=== PATIENT | female | born 1975 | race African-American/Black ===

== ENCOUNTER 2020-03-04 19:38 | Outpatient (REF) | payer OTHER, SELFPAY | END 2020-03-04 19:39 | disposition home or self-care (01) | LOC: HO.MRI 19:38 | PROVIDERS: Visit Provider Physician Assistant | DX: M23.8X1 Other internal derangements of right knee (principal) ==

== ENCOUNTER → 2020-03-26 11:05 | Outpatient (BNVA) | payer OTHER, SELFPAY | PROVIDERS: PCP Nurse Practitioner Family; Referring Provider Nurse Practitioner Family; Visit Provider Orthopaedic Surgery | DX: S83.231D Complex tear of medial meniscus, current injury, right knee, subsequent encounter (principal); M23.8X1 Other internal derangements of right knee | CPT/HCPCS: 99212 ==

== ENCOUNTER 2020-05-02 06:34 | Day surgery (SDC) | payer OTHER, SELFPAY ==
[2020-04-24 13:49] VITALS: BMI 44.6
--- NOTE | 2020-05-01 10:19 | P.CONAN_ITS ---
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 Allergies Allergy/AdvReac Type Severity Reaction Status Date / Time No Known Allergies Allergy Verified 05/02/20 06:47 Home Medications Medication Instructions Recorded Confirmed Type cholecalciferol (vitamin D3) 50 mcg PO DAILY 04/24/20 04/24/20 History [Vitamin D3] clonazepam [Klonopin] 0.5 mg PO BEDTIME 04/24/20 04/24/20 History ferrous sulfate 325 mg PO DAILY 04/24/20 04/24/20 History Exam Exam Date and Time: May 01, 2020 1019 Height,Weight and Vital Signs: Height 5 ft 4 in Weight 117.934 kg Assessment and Plan Assessment Anesthesia Assessment: Chart Reviewed Documented by User: Levi Gallagher MD 05/02/20 07:31 [facility] Past Medical History Medical History Anxiety Primary osteoarthritis of knees, bilateral Surgical History Surgical History History of repair of anterior cruciate ligament of left knee (~2009) Previous section Social History Social History Advance Directives Information Provided: No 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al status: employed 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[employer] 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 Allergies Allergy/AdvReac Type Severity Reaction Status Date / Time No Known Allergies Allergy Verified 05/02/20 06:47 Home Medications Medication Instructions Recorded Confirmed Type cholecalciferol (vitamin D3) 50 mcg PO DAILY 04/24/20 04/24/20 History [Vitamin D3] clonazepam [Klonopin] 0.5 mg PO BEDTIME 04/24/20 04/24/20 History ferrous sulfate 325 mg PO DAILY 04/24/20 04/24/20 History Exam Airway Mallampati Class: II TM Dist: >3cm Neck ROM: Full Partial: Upper Loose/Missing/Broken Teeth: Yes Heart: rrr Lungs: nl Other: ao Assessment and Plan Assessment Anesthesia Assessment: Anesthesia Plan Discussed and Chart Reviewed Final Anesthetic Review NPO: Yes ASA Class: III Final Preanesthetic Review: No Changes in Pt Med Stat, Meds/Allgs Chart Reviewed, Consent Obtained/Reviewed and Anes Risks/Benef Reviewed Patient Risk: Intermediate Procedure Risk: Low Anesthetic Plan Anesthetic Plan: GA Disposition: Standard PACU
--- NOTE | 2020-05-01 15:01 | MHC.SHP ---
Pre-Procedural Eval Section A The patient is an INPATIENT: No Changes since office visit: No Cold of Flu in the past 2 weeks, No New Medical Problems, No Changes in Medication and No Patient answered all questions The History & Physical has been completed within 30 days and I have reviewed it.: Yes Section B Chief Complaint: Tear of Medial Maniscus Allergies: Allergies Allergy/AdvReac Type Severity Reaction Status Date / Time No Known Allergies Allergy Unverified 02/15/20 18:35 Plan Patient has been examined and remains a candidate for the planned procedure
[2020-05-02] VITALS (11 sets, daily range): BP systolic 118–150; BP diastolic 57–99; PULSE 69–98; RESP 11–19; TEMP 36.3–36.8; O2SAT 96–99
[2020-05-02] MEDS: Lactated Ringers 1,000 ML 100 ML IVCONT (06:57)
--- NOTE | 2020-05-02 08:23 | PM.PRCOR ---
Brief Operative Note Date of procedure: 05/02/20 Pre-op diagnosis: acl deficient right knee with mm tear Post-op diagnosis: same (with OA right knee) Procedure: arthroscopic surgery right knee Anesthesia: GLMA Surgeon: Kirti Amezquita Estimated blood loss (mL): 10 Pathology: none sent Condition: stable Disposition: PACU
[2020-05-02] MEDS: Ketorolac Tromethamine 15 MG/ML VIAL IVPUSH (08:43)
[2020-05-02] MEDS: Acetaminophen 325 MG TABLET 650 MG PO (08:50)
[2020-05-02] MEDS: oxyCODONE HCl Immed Release 5 MG TABLET PO (08:51)
[2020-05-02] MEDS: HYDROmorphone HCl 0.5 MG/0.5 ML SYRINGE 0.25 MG IVPUSH ×2 (08:53→09:25)
--- NOTE | 2020-05-08 16:14 | OP_ITS ---
SURGEON: Kirti Amezquita MD PREOPERATIVE DIAGNOSIS: Medial meniscal tear of the right knee. POSTOPERATIVE DIAGNOSIS: PROCEDURE PERFORMED: ESTIMATED BLOOD LOSS: COMPLICATIONS: ANESTHESIA: ASSISTANTS: SPECIMENS: POSTOPERATIVE DIAGNOSES: 1. Medial meniscal tear, right knee. 2. ACL deficient, right knee. 3. Osteoarthritis, right knee. CLINICAL NOTE: This lady has had ongoing problem with pain and discomfort involving her knee. She had some instability episodes. She has known ACL injury previously, however, recent investigations confirmed that she had a meniscus tear as well as ongoing problems and she had failed non-operative management. After explaining the risks, benefits, and alternatives and answering all her questions, it was mutually agreed upon to carry out the following procedure. MOTION: Full range of motion. STABILITY: Grade 1 Leidy, grade 1 anterior drawer, equivocal pivot shift. Collateral ligaments intact. DESCRIPTION OF PROCEDURE: PREPARATION: GA, standard technique, tourniquet to 300 mmHg for 10 minutes. SURGICAL TIME-OUT: The patient was identified, procedure confirmed, site confirmed. Medical analogy and history were reviewed. Preoperative antibiotics were given. Standard DVT prophylaxis was in place. All other items were discussed and agreed upon. INCISION: Superolateral, inferolateral, inferomedial, and stab incisions. SYNOVIUM: Normal. SYNOVIAL FLUID: Clear. MEDIAL COMPARTMENT: There was complex degenerative tearing of the posterior horn of the meniscus, it was resected using a combination of handheld cutters and power shaver to stable meniscus. There was grade 2 and 3 injury of the medial femoral condyle, which was debrided. The tibial articular surface had grade 2 fraying. INTERCONDYLAR NOTCH: ACL was absent and only remnants remained. PCL was intact. LATERAL COMPARTMENT: Lateral meniscus, tibial and femoral articular surfaces, popliteus tendon all stable and intact. ANTERIOR COMPARTMENT: Medial and lateral gutters clear. Suprapatellar pouch clear. Patella had grade 3 injury of the medial and central portion of the patella, which was debrided. The femoral sulcus had some grade 2 to 3 injury as well, which was debrided. CLOSURE: 30 mL of fglz-vnt-kgmb of 0.75% Marcaine with epinephrine and normal saline was prepared, injected into the knee. Steri-Strips and sterile dressing then applied. RECOMMENDATIONS: 1. Restore motion strength. 2. Resume activity as tolerated. 3. Discharge today with prescription for analgesic, Tylenol No. 3, 20 tablets. 4. Follow up in the office in 10 days' time. MD JUMA Tate/FARIDEH / [phone]
== END 2020-05-02 10:50 | disposition home or self-care (01) ==
PROVIDERS: PCP Nurse Practitioner Family; Visit Provider Orthopaedic Surgery
PROC: (CPT 29870; principal; 2020-05-02 07:30)
DX: S83.231A Complex tear of medial meniscus, current injury, right knee, initial encounter (principal); M23.8X1 Other internal derangements of right knee; M17.0 Bilateral primary osteoarthritis of knee; W18.2XXA Fall in (into) shower or empty bathtub, initial encounter; Y93.E1 Activity, personal bathing and showering; Y92.002 Bathroom of unspecified non-institutional (private) residence as the place of occurrence of the external cause; Y99.8 Other external cause status; Z79.899 Other long term (current) drug therapy
CPT/HCPCS: 29881; J0171; J1170; J1885; J2405; J3010

== ENCOUNTER 2020-06-09 10:43 | Emergency (ER) | payer OTHER, SELFPAY ==
[2020-06-09 10:45] VITALS: BP 127/76; PULSE 99; RESP 16; TEMP 36.7; O2SAT 97; BMI 44.6
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
[2020-06-09 14:15] LABS: Glucose Urine UA NEG (NEG); Leukocyte Esterase Urine NEG (NEG); Nitrite Urine NEG (NEG); Specific Gravity - Urine 1.025 (1.005-1.025); Urine Blood NEG (NEG); Urine Ketones NEG (NEG); Urine Protein NEG (NEG-TRACE)
[2020-06-09 14:16] LABS: Appearance Urine CLEAR; Color Urine YELLOW
[2020-06-09 14:17] LABS: UPreg QC Valid YES; Urine Pregnancy NEGATIVE (NEGATIVE)
[2020-06-09] MEDS: cefTRIAXone sodium 500 MG, Lidocaine HCl 1 % MPF 1 ML IM (14:20)
[2020-06-09] MEDS: Penicillin G Benzathine 2,400,000 UNIT/4 ML SYRINGE 2400000 UNIT IM (14:22)
[2020-06-10 04:08] LABS: Syphilis Screen Nonreactive (Nonreactive)
[2020-06-12 09:02] LABS: C. trachomatis RNA TMA NOT DETECTED (NOT DETECTED); N. gonorrhoeae RNA TMA NOT DETECTED (NOT DETECTED)
== END 2020-06-09 14:27 | disposition home or self-care (01) ==
PROVIDERS: Physician Assistant Medical; Emergency Provider Emergency Medicine; PCP Nurse Practitioner Family
DX: Z20.2 Contact with and (suspected) exposure to infections with a predominantly sexual mode of transmission (principal); Z79.899 Other long term (current) drug therapy
CPT/HCPCS: 36415; 81003; 81025; 86780; 87491; 87591; 96372; 99283; 99284; J0561; J0696

== ENCOUNTER 2020-06-14 10:58 | Outpatient (REF) | payer OTHER, SELFPAY ==
--- NOTE | 2020-06-14 11:02 | XR_ITS ---
EXAMINATION: XR RIBS, RIGHT CLINICAL INFORMATION: Unspecified injury or pneumothorax. COMPARISON: None TECHNIQUE: 3 views of the right ribs were obtained. 1 view chest. FINDINGS: Chest: The lungs are well-expanded and clear of acute process. Heart size and pulmonary vascularity is normal. No gross bony abnormality seen. Multiple views of left ribs reveal no visible rib fracture or bony abnormality. The soft tissues are normal. XR/XR ribs RT min 3V w CXR1V IMPRESSION: Unremarkable chest exam. No visible left rib fractures seen.
== END 2020-06-14 10:59 | disposition home or self-care (01) ==
LOC: HO.HMGCX 10:58
PROVIDERS: Visit Provider Nurse Practitioner Family
DX: S29.9XXA Unspecified injury of thorax, initial encounter (principal); X58.XXXA Exposure to other specified factors, initial encounter; Y93.9 Activity, unspecified; Y92.9 Unspecified place or not applicable; Y99.8 Other external cause status; E78.2 Mixed hyperlipidemia; E03.9 Hypothyroidism, unspecified
CPT/HCPCS: 71101

== ENCOUNTER 2020-10-12 16:58 | Emergency (ER) | payer OTHER, SELFPAY ==
[2020-10-12 17:13] VITALS: BP 137/80; PULSE 86; RESP 18; TEMP 37.1; O2SAT 97; BMI 41.5
[2020-10-12 17:37] LABS: Appearance Urine CLEAR; Color Urine YELLOW; Glucose Urine UA NEG (NEG); Leukocyte Esterase Urine NEG (NEG); Nitrite Urine NEG (NEG); Urine Blood NEG (NEG); Urine Ketones NEG (NEG); Urine Protein NEG (NEG-TRACE)
[2020-10-12 17:54] LABS: UPreg QC Valid YES; Urine Pregnancy NEGATIVE (NEGATIVE)
--- NOTE | 2020-10-12 18:25 | ED_ITS ---
HPI - Female Genitourinary General Chief complaint: Urogenital-Female Stated complaint: uti Time Seen by Provider: 10/12/20 17:37 Source: patient Mode of arrival: ambulatory Limitations: no limitations History of Present Illness HPI Narrative: 44-year-old female with a past medical history of bacterial vaginosis infections and Trichomonas presenting to the ED with complaints of 3 weeks of urinary odor with a fishy smell with pelvic floor pressure abnormal white vaginal discharge with associated vaginal itching and feeling retaining of urine. Reports that she would also like to be tested for STDs and treated for gonorrhea chlamydia. Denies any other symptoms complaints or concerns at this time. MD elicited complaint: vaginal discharge and genital itching Onset (ago): week(s) (Three weeks worse today) Location of symptoms: external genitalia and vaginal Severity: moderate Quality of pain: aching Consistency: constant Vaginal discharge: white and vaginal odor Vaginal bleeding: none Exacerbating factors: urination Relieving factors: none Associated symptoms: denies other symptoms Treatment prior to arrival: none Sexual activity: Yes Patient : No Related Data Previous Rx's Medication Instructions Recorded acetaminophen 300 mg-codeine 30 mg 1 tab PO Q4-6H PRN 7 Days #20 tab 05/10/20 tablet doxycycline monohydrate 100 mg PO BID 10 Days #20 cap 06/09/20 cyclobenzaprine 10 mg tablet 10 mg PO TID PRN #12 tab 06/14/20 lidocaine 5 % topical patch 1 patch TOPICAL DAILY #15 ea 06/14/20 naproxen 500 mg tablet 500 mg PO BID PRN #60 tab 06/14/20 cholecalciferol (vitamin D3) 50 50 mcg PO DAILY 90 Days #90 cap 09/11/20 mcg (2,000 unit) capsule ferrous sulfate 325 mg (65 mg 325 mg PO DAILY 90 Days #90 tab 09/11/20 iron) tablet clonazepam 0.5 mg tablet 0.5 mg PO BEDTIME 30 Days #30 tab 10/11/20 doxycycline monohydrate 100 mg PO BID 10 Days #20 cap 10/12/20 fluconazole [Diflucan] 150 mg PO ONCE 1 Days #1 tab 10/12/20 metronidazole [Flagyl] 500 mg PO BID 7 Days #14 tab 10/12/20 Allergies Allergy/AdvReac Type Severity Reaction Status Date / Time No Known Allergies Allergy Verified 05/02/20 06:47 Review of Systems Review of Systems: Constitutional : No Fever, No Chills ENT/Mouth : No sore throat, No Rhinorrhea Eyes: No Eye Pain, No Redness Cardiovascular : No Chest Pain, No SOB Respiratory : No Cough, No Sputum, No Wheezing Gastrointestinal : No Nausea, No Vomiting, No Diarrhea, positive abdominal pain, Genitourinary : Positive pelvic pain/vaginal discharge, No irregular bleeding, No Dysuria, No Urinary Frequency, no hematuria Musculoskeletal : No Myalgias Skin : No rash Neuro : No Weakness, No Headache Psych : No Anxiety/Panic, No Depression Heme/Lymph: No bruising, No Lymphadenopathy Endocrine : No Polyuria, No Polydipsia Yes all other systems are reviewed and are negative [facility] Past Medical History Attestation statement: The following information was validated with the patient. 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 Blood pressure normal. Heart rate normal. Respiration rate normal. Temperature normal. Oxygen saturation normal. Appearance: Alert. Oriented X3. No acute distress. Head: Normal external exam. Normocephalic. Atraumatic. Eyes: PERRLA. EOMI. Conjunctiva and sclera normal. Eyelids normal. ENT: Pharynx normal. Uvula midline. Moist mucous membranes. Neck: Normal inspection. Neck supple. FROM. No adenopathy. Thyroid Normal. No meningeal signs. No neck mass noted. CVS: Normal heart rate and rhythm. Heart sound normal. No murmurs noted. Pulses normal throughout. Respiratory: No respiratory distress. Painless inspiration. Breath sounds normal. No wheezes/rales/rhonchi noted. Chest nontender. No accessory muscle usage noted or decreased air movement noted. Abdomen: Soft and nontender. Bowel sounds normal in all 4 quadrants. No distention noted. No organomegaly noted. No visible injury noted. : Supervised by TORREY Gonzalez, Normal external appearance of urethra. No lesions/lacerations or tenderness noted. Speculum exam normal appearance/palpation of vagina normal. Exam with valvular erythema, edema, excoriations and cottage cheeselike discharge although patient also has fishy odor therefore could be candidiasis vaginitis with bacterial vaginitis. Otherwise no vaginal erythema. No foreign bodies noted. No vaginal laceration/lesions or active bleeding noted. No tissue present in vagina. No vaginal mass noted. No vaginal swelling noted. No vaginal tenderness noted. Normal appearance of cervix. Normal palpation of cervix. Cervical os is closed. No abnormal cervical discharge noted. No cervical lesion/mass. No Bartholin cyst noted. No cervical motion tenderness noted. Negative chandelier sign. Normal bimanual exam. Uterine size normal. Bladder normal to palpation. Uterine consistency normal. Normal cervical palpation. Uterine mobility normal. Uterine shape normal. Normal adnexa. Normal rectovaginal exam. Back: No CVA tenderness. Full range of motion noted. Skin: Skin warm and dry. Normal skin color. Normal skin turgor. No rashes/lesions/lacerations noted. Extremities: No lower extremity edema. Extremities exhibit normal range of motion. Extremities nontender. Neuro: Oriented X 3. No motor deficit. No sensory deficit. Reflexes normal. Course Course Course Narrative: 44-year-old female presenting to the ED with vaginal itching/discharge and pelvic floor pain for the past 3 weeks worse today. She is requesting to be tested for STDs. Will treat for bacterial vaginosis/candidiasis vaginitis along with gonorrhea chlamydia. Patient will be given 500 mg of IM Rocephin and will also be given Diflucan Flagyl and doxy cycline as an outpatient prescription and instructions to return if any new or worsening symptoms and to follow up with primary care provider. Patient understands agrees with this plan. [facility] - Female Genitourinary Medical Records Attestation: I reviewed the patient's medical records. Lab Data Attestation: I reviewed the patient's lab results. Labs: Lab Results 10/12/20 10/12/20 Range/Units 17:24 17:24 Urine Color YELLOW Urine Appearance CLEAR Urine pH 8.0 (5.0-8.0) Ur Specific Novice 1.020 (1.005-1.025) Urine Protein NEG (NEG-TRACE) MG/DL Urine Glucose (UA) NEG (NEG) MG/DL Urine Ketones NEG (NEG) MG/DL Urine Blood NEG (NEG) Urine Nitrite NEG (NEG) Ur Leukocyte Esterase NEG (NEG) Urine Test NEGATIVE (NEGATIVE) Discharge Plan Discharge Clinical Impression: Bacterial vaginosis, Vaginitis Patient Disposition: Home, Self-Care Instructions: Bacterial Vaginosis (ED), Yeast Infection (ED) Additional Instructions: You have pending lab results if any are positive you will be contacted. Prescriptions: New metronidazole [Flagyl] 500 mg tablet 500 mg PO BID 7 Days Qty: 14 RF: 0 fluconazole [Diflucan] 150 mg tablet 150 mg PO ONCE 1 Days Qty: 1 RF: 0 doxycycline monohydrate 100 mg capsule 100 mg PO BID 10 Days Qty: 20 RF: 0 No Action acetaminophen-codeine 300-30 mg tablet 1 tab PO Q4-6H PRN (Reason: pain) 7 Days Qty: 20 RF: 0 cholecalciferol (vitamin D3) [Vitamin D3] 50 mcg (2,000 unit) capsule 50 mcg PO DAILY 90 Days Qty: 90 RF: 0 ferrous sulfate 325 mg (65 mg iron) tablet 325 mg PO DAILY 90 Days Qty: 90 RF: 0 clonazepam [Klonopin] 0.5 mg tablet 0.5 mg PO BEDTIME 30 Days Qty: 30 RF: 0 doxycycline monohydrate 100 mg capsule 100 mg PO BID 10 Days Qty: 20 RF: 0 cyclobenzaprine 10 mg tablet 10 mg PO TID PRN (Reason: muscle spasm) Qty: 12 RF: 0 naproxen 500 mg tablet 500 mg PO BID PRN (Reason: pain) Qty: 60 RF: 0 lidocaine 5 % adhesive patch,medicated 1 patch topical DAILY Qty: 15 RF: 0 Referrals: Albino Watts, TRACK INSPECTING SUPERVISOR-BC [Primary Care Provider] - 2 days Print Language: Macedonian
[2020-10-12] MEDS: Fluconazole 150 MG TABLET PO (18:51)
[2020-10-12] MEDS: cefTRIAXone sodium 500 MG, Lidocaine HCl 1 % MPF 1 ML IM (18:51)
[2020-10-13 03:49] LABS: CT PCR NOT DETECTED (Not Detect.); NG PCR NOT DETECTED (Not Detect.)
[2020-10-13 10:43] LABS: BV Int Neg Control Negative (Negative); BV Int Pos Control Positive (Positive)
== END 2020-10-12 19:00 | disposition home or self-care (01) ==
PROVIDERS: Physician Assistant Medical; Emergency Provider Emergency Medicine; PCP Nurse Practitioner Family
DX: N76.0 Acute vaginitis (principal); Z11.3 Encounter for screening for infections with a predominantly sexual mode of transmission
CPT/HCPCS: 36415; 81003; 81025; 87480; 87491; 87510; 87591; 87660; 96372; 99284; J0696

== ENCOUNTER 2021-04-17 12:22 | Outpatient (REF) | payer OTHER, SELFPAY ==
[2021-04-17 14:03] LABS: Appearance Urine CLEAR; Color Urine YELLOW; Glucose Urine UA NEG (NEG); Leukocyte Esterase Urine NEG (NEG); Nitrite Urine NEG (NEG); PH 6.5 (5.0-8.0); Specific Gravity - Urine 1.015 (1.005-1.025); UACC Culture Trigger NO; Urine Blood 3+ (NEG); Urine Ketones NEG (NEG); Urine Protein NEG (NEG-TRACE)
[2021-04-17 14:21] LABS: RBC Urine 50-75 /HPF (0); Squamous Epithelial Cell Urine 1+ /LPF; WBC Urine 0-2 /HPF (0-4)
[2021-04-17 14:32] LABS: Alanine Aminotransferase 10 U/L (0-31); Albumin Level 3.8 g/dL (3.5-5.0); Alkaline Phosphatase 87 U/L (39-117); Anion Gap 11 (12-20); Aspartate Amino Transferase 12 U/L (5-31); Bilirubin Total 0.5 mg/dL (0.0-1.0); Blood Urea Nitrogen 7 mg/dL (9-16); Calcium 8.9 mg/dL (8.4-10.2); Carbon Dioxide 24 mmol/L (22-29); Chloride 104 mmol/L (96-108); Cholesterol 194 mg/dL; Estimated Glomerular Filt Rate > 60; Glucose Fasting 101 mg/dL (60-99); HDL Cholesterol 51 mg/dL; LDL Cholesterol Calculated 127 mg/dl; Potassium 3.9 mmol/L (3.3-5.1); Sodium 135 mmol/L (135-145); Total Protein 6.3 g/dL (6.5-8.0); Triglycerides 81 mg/dL
[2021-04-17 14:35] LABS: TSH reflex Free T4 1.79 uIU/mL (0.32-4.0)
== END 2021-04-17 12:23 | disposition home or self-care (01) ==
LOC: HO.HMGCLDS 12:22
PROVIDERS: PCP Nurse Practitioner Family; Visit Provider Nurse Practitioner Family
DX: Z00.00 Encounter for general adult medical examination without abnormal findings (principal)
CPT/HCPCS: 36415; 80053; 80061; 81001; 81003; 84443

== ENCOUNTER 2021-06-12 09:21 | Outpatient (REF) | payer OTHER, SELFPAY ==
[2021-06-13 14:20] LABS: BV Int Neg Control Negative (Negative); BV Int Pos Control Positive (Positive)
[2021-06-13 14:39] LABS: CT PCR NOT DETECTED (Not Detect.); NG PCR DETECTED (Not Detect.)
[2021-06-19 01:06] LABS: HPV mRNA E6/E7 rflx Not Detected (Not Detected)
== END 2021-06-12 09:22 | disposition home or self-care (01) ==
LOC: HO.LAB 09:21
PROVIDERS: Visit Provider Advanced Practice Midwife
DX: Z01.411 Encounter for gynecological examination (general) (routine) with abnormal findings (principal); Z11.51 Encounter for screening for human papillomavirus (HPV); Z20.2 Contact with and (suspected) exposure to infections with a predominantly sexual mode of transmission; N89.8 Other specified noninflammatory disorders of vagina
CPT/HCPCS: 87480; 87491; 87510; 87591; 87624; 87660; 88142

== ENCOUNTER 2021-06-24 08:09 | Outpatient (REF) | payer OTHER, SELFPAY ==
--- NOTE | ~2021-06-24 | MM_ITS ---
EXAMINATION: MM SCREENING DIGITAL BREAST TOMOSYNTHESIS, BILATERAL CLINICAL INFORMATION: Screening. Asymptomatic. The lifetime risk of breast cancer based on the Tyrer-Cuzick Model is 8.4%. COMPARISON: Mammography: 11/19/2010 TECHNIQUE: Digital breast tomosynthesis is performed in both the craniocaudal and mediolateral oblique views along with computer-aided detection (CAD). Synthesized 2D images are generated from the tomosynthesis. FINDINGS: The breasts are almost entirely fatty (ACR BI-RADS breast composition Category a). There are some scattered lymph nodes seen bilaterally. Within the upper outer aspect of the right breast approximately 8 cm from the nipple there is a 9 x 6 mm lobular density without microcalcifications. This is in a location on the other study of a more circumscribed density. Recommend spot compression views in craniocaudal and mediolateral oblique projections. If there is persistence of abnormal-appearing density then ultrasound could be performed at that time. There is stable appearance of the left breast. MM/MM tomosynthesis screening BI IMPRESSION: Right breast density for further evaluation as described above. ASSESSMENT: BI-RADS 0: Incomplete - Need Additional Imaging Evaluation RECOMMENDATION: 1. Additional views of the right breast. 2. Targeted ultrasound if warranted after review of the additional views. 3. Radiology department staff will contact the patient for additional imaging.
[2021-06-24 11:08] LABS: HIV AB/AG Nonreactive (Nonreactive); HIV Num 1 0.06 S/CO (0.00-0.99); Hepatitis B Surface Antigen Negative (Negative); ~HepC Num1 0.12 S/CO (0.00-0.79); ~Hepatitis C Antibody Nonreactive (Nonreactive)
[2021-06-25 09:36] LABS: Syphilis Screen Nonreactive (Nonreactive)
== END 2021-06-24 08:10 | disposition home or self-care (01) ==
LOC: HO.MAMMO 08:09
PROVIDERS: Absent Provider Advanced Practice Midwife; PCP Nurse Practitioner Family; Visit Provider Nurse Practitioner Family
DX: Z01.411 Encounter for gynecological examination (general) (routine) with abnormal findings (principal); Z12.31 Encounter for screening mammogram for malignant neoplasm of breast; N89.8 Other specified noninflammatory disorders of vagina; Z20.2 Contact with and (suspected) exposure to infections with a predominantly sexual mode of transmission
CPT/HCPCS: 36415; 77063; 77067; 86780; 86803; 87340; 87389; 96372; J0696

== ENCOUNTER 2021-07-18 11:47 | Outpatient (REF) | payer OTHER, SELFPAY ==
[2021-07-18 12:41] LABS: Appearance Urine CLEAR; Color Urine YELLOW; Glucose Urine UA NEG (NEG); Leukocyte Esterase Urine NEG (NEG); Nitrite Urine NEG (NEG); PH 6.5 (5.0-8.0); Urine Blood NEG (NEG); Urine Ketones NEG (NEG); Urine Protein NEG (NEG-TRACE)
== END 2021-07-18 11:48 | disposition home or self-care (01) ==
LOC: HO.MAMMO 11:47
PROVIDERS: PCP Nurse Practitioner Family; Visit Provider Nurse Practitioner Family
DX: Z00.00 Encounter for general adult medical examination without abnormal findings (principal)
CPT/HCPCS: 81003

== ENCOUNTER 2021-08-28 13:14 | Outpatient (REF) | payer OTHER, SELFPAY ==
--- NOTE | ~2021-08-28 | MM_ITS ---
EXAMINATION: MM DIAGNOSTIC DIGITAL BREAST TOMOSYNTHESIS, RIGHT US DIAGNOSTIC ULTRASOUND BREAST, RIGHT CLINICAL INFORMATION: Recall from screening for nodular asymmetric density anterior upper outer quadrant right breast. No known family history breast cancer. TC score 8%. COMPARISON: Mammography: 06/24/2021; outside exam 11/19/2010 ([place]) TECHNIQUE: Digital breast tomosynthesis is performed. 2D images are generated from the tomosynthesis. The following views are obtained: Spot CC, spot MLO x2, spot ML. Ultrasound right breast is targeted to the upper outer quadrant using grayscale imaging and color Doppler without and with harmonics. FINDINGS: The breasts are almost entirely fatty (ACR BI-RADS breast composition Category a). The nodular asymmetric density has macrolobulated margins and overall size approximately 0.8 x 0.6 cm. No associated calcification. There is similar asymmetric density suggested on remote prior outside 2-D mammography right CC view. Suspect chronic finding, better appreciated with tomography. Ultrasound demonstrates oval area grouped microcysts 7:00 position 8 cm from nipple measuring 1.1 x 0.5 cm. This likely corresponds to the finding on mammography. There is no solid mass or architectural abnormality. Results are discussed with the patient at time of visit. Finding is probably benign, possibly chronic and better appreciated with tomography. Management plan is for short interval diagnostic right mammography in 6 months. MM/MM tomosynthesis added views R IMPRESSION: -Macrolobulated nodule anterior upper outer right breast, possibly chronic and better appreciated with tomography. -Benign-appearing grouped microcysts on targeted ultrasound near mammographic finding. ASSESSMENT: BI-RADS 3: Probably Benign RECOMMENDATION: Diagnostic right mammography in 6 months. This patient's information was entered into a reminder system with a target due date for their next mammogram.
== END 2021-08-28 13:15 | disposition home or self-care (01) ==
LOC: HO.MAMMO 13:14
PROVIDERS: PCP Nurse Practitioner Family; Visit Provider Nurse Practitioner Family
DX: R92.2 Inconclusive mammogram (principal)
CPT/HCPCS: 76642; 77061; 77065

== ENCOUNTER 2021-10-10 04:36 | Emergency (ER) | payer OTHER, SELFPAY ==
[2021-10-10 05:00] VITALS: BP 112/55; PULSE 108; RESP 16; TEMP 37.1; O2SAT 95; BMI 39.1
[2021-10-10 05:15] LABS: Appearance Urine CLEAR; Color Urine YELLOW; Glucose Urine UA NEG (NEG); Leukocyte Esterase Urine NEG (NEG); Nitrite Urine NEG (NEG); Urine Blood NEG (NEG); Urine Ketones 5 MG/DL (NEG); Urine Protein NEG (NEG-TRACE)
[2021-10-10 05:16] LABS: UPreg QC Valid YES; Urine Pregnancy NEGATIVE (NEGATIVE)
--- NOTE | 2021-10-10 06:16 | ED_ITS ---
HPI - Female Genitourinary General Chief complaint: Urogenital-Female Stated complaint: UTI? Vaginal Itching Time Seen by Provider: 10/10/21 06:11 Source: patient and family () Mode of arrival: ambulatory History of Present Illness HPI Narrative: 45-year-old female presents with complaints vaginal itching and discharge is concerned for possible sexually transmitted infection and expresses she has concerns that it may be from her . Otherwise, she denies any fever, chills, urinary pain/burning/frequency. Related Data Previous Rx's Medication Instructions Recorded cholecalciferol (vitamin D3) 50 50 mcg PO DAILY 90 Days #90 cap 06/09/21 mcg (2,000 unit) capsule (Vitamin D3) ferrous sulfate 325 mg (65 mg 325 mg PO DAILY 90 Days #90 tab 06/09/21 iron) tablet clotrimazole 1 % vaginal cream 1 appful VAGINAL BEDTIME #45 g 06/12/21 metronidazole 500 mg tablet 500 mg PO BID 7 Days #14 tab 06/17/21 clonazepam 0.5 mg tablet (Klonopin) 0.5 mg PO BEDTIME 30 Days #30 tab 07/08/21 doxycycline hyclate 100 mg tablet 100 mg PO BID 7 Days #14 tab 10/10/21 Allergies Allergy/AdvReac Type Severity Reaction Status Date / Time No Known Allergies Allergy Verified 10/10/21 05:03 Review of Systems Review of Systems: Pertinent positives and negatives as stated in HPI 10 point review of systems is otherwise negative. [facility] Past Medical History Source: nursing notes reviewed Medical History Anxiety Primary osteoarthritis of knees, bilateral Surgical History History of repair of anterior cruciate ligament of left knee (~2009) Previous section Tubal ligation status Family History Family History Other Mental health disorder Substance use disorder Social History Social History Housing: Apartment Patient Tobacco Use Status: Current everyday Tobacco user Cigarettes Per Day: 2 Advance Directives: No Advance Directives Information Provided: Yes 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al status: employed 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 GENERAL: Well developed, well nourished, in no acute distress. HEAD: Normocephalic/atraumatic LUNGS: Normal breath sounds. CARDIOVASCULAR: Regular rate and rhythm without noted murmurs ABDOMEN: Soft, non-tender, non-distended with bowel sounds. NEUROLOGIC: Alert and oriented x 4. Course Course Course Narrative: 45-year-old female with history and clinical presentation suggestive of possible sexually transmitted infection and she was empirically treated here in the emergency room and discharged on remaining course of doxycycline. [facility] - Female Genitourinary Lab Data Labs: Lab Results 10/10/21 10/10/21 10/10/21 Range/Units 05:07 05:07 05:07 Urine Color YELLOW Urine Appearance CLEAR Urine pH 6.0 (5.0-8.0) Ur Specific [place] 1.020 (1.005-1.025) Urine Protein NEG (NEG-TRACE) MG/DL Urine Glucose (UA) NEG (NEG) MG/DL Urine Ketones 5 (NEG) MG/DL Urine Blood NEG (NEG) Urine Nitrite NEG (NEG) Ur Leukocyte Esterase NEG (NEG) Urine Test NEGATIVE (NEGATIVE) Chlam trachomat DNA PCR NOT DETECTED (Not Detect.) N.gonorrhoeae DNA (PCR) NOT DETECTED (Not Detect.) Discharge Plan Discharge Clinical Impression: Vaginal itching, Vaginal discharge Patient Disposition: Home, Self-Care Instructions: Vaginal Discharge (ED) Additional Instructions: 1. Please follow-up on your results by logging into the patient portal or contacting your primary care provider to check on the results. 2. Complete the entire course of antibiotics. Prescriptions: New doxycycline hyclate 100 mg tablet 100 mg PO BID 7 Days Qty: 14 0RF Rx Instructions: Please instruct patient to stop iron pills until completion of these antibiotics. No Action cholecalciferol (vitamin D3) [Vitamin D3] 50 mcg (2,000 unit) capsule 50 mcg PO DAILY 90 Days Qty: 90 0RF ferrous sulfate 325 mg (65 mg iron) tablet 325 mg PO DAILY 90 Days Qty: 90 0RF metronidazole 500 mg tablet 500 mg PO BID 7 Days Qty: 14 0RF clonazepam [Klonopin] 0.5 mg tablet 0.5 mg PO BEDTIME 30 Days Qty: 30 0RF clotrimazole 1 % cream 1 appful vaginal BEDTIME Qty: 45 1RF Interventions: ED Discharge Assessment Last Done: 10/10/21 06:40 Discharge Date/Time: 10/10/21 06:40
[2021-10-10] MEDS: cefTRIAXone sodium 500 MG, Lidocaine HCl 1 % MPF 1 ML IM (06:32)
[2021-10-10 06:33] VITALS: BP 118/62; PULSE 102; RESP 16; O2SAT 100
[2021-10-10 06:48] LABS: CT PCR NOT DETECTED (Not Detect.); NG PCR NOT DETECTED (Not Detect.)
== END 2021-10-10 06:40 | disposition home or self-care (01) ==
PROVIDERS: Emergency Provider Student in an Organized Health Care Education/Training Program
DX: L29.2 Pruritus vulvae (principal); N89.8 Other specified noninflammatory disorders of vagina
CPT/HCPCS: 81003; 81025; 87491; 87591; 96372; 99282; 99283; 99284; J0696

== ENCOUNTER 2022-02-22 15:50 | Emergency (ER) | payer OTHER, SELFPAY ==
--- NOTE | ~2022-02-22 | US_ITS ---
EXAMINATION: US VENOUS ULTRASOUND WITH DOPPLER LOWER EXTREMITY, LEFT CLINICAL INFORMATION: Pain COMPARISON: None TECHNIQUE: Ultrasound of the deep veins is performed from the hip to the calf with compression sonography and color and pulse Doppler assessment. Spectral analysis with color-flow imaging is performed. FINDINGS: There is normal venous compression and respiratory variation and augmented flow. The visualized common femoral vein, superficial femoral vein, profunda femoral vein, popliteal vein, and the trifurcation region shows no evidence of deep venous thrombosis. Complex Dominguez's cyst popliteal fossa measure 9.7 x 3.4 x 7.7 cm. US/US venous duplex LE LT IMPRESSION: No DVT demonstrated in the left lower extremity. If the patient's symptoms persist, followup ultrasound in 5 days 7 days might be of value to exclude proximal propagation from a non-visualized calf vein. There is complex Dominguez's cyst in the popliteal fossa 9.7 cm.
[2022-02-22 17:22] VITALS: BP 135/94; PULSE 97; RESP 18; TEMP 36.2; O2SAT 99; BMI 44.6
--- NOTE | 2022-02-22 18:05 | ED_ITS ---
HPI - General Adult General Chief complaint: Extremity Problem Stated complaint: L leg pain Time Seen by Provider: 02/22/22 17:24 Source: patient Mode of arrival: ambulatory Limitations: no limitations History of Present Illness HPI narrative: Patient is a 46 year old female presenting to the emergency department today with left lower leg pain. Patient states that she has a bump on her left lower leg with pain. Patient denies any dizziness, lightheadedness, abdominal pain, nausea, vomiting, fever, chills, blurry vision, double vision, loss of vision, chest pain, difficulty breathing, shortness of breath, back pain, night sweats, pain with urination, increased urinary frequency, increased urinary urgency, blood in her urine or stool, syncope or a near syncopal episode, recent trauma or falls, bowel incontinence, bladder incontinence, bowel retention, bladder retention, or any other complaints at this time. Onset (ago): day(s) Location: left and lower extremity Radiation: non-radiation Severity: mild Severity scale (1-10): 3 Quality: dull Pain Consistency: constant Relieving factors: none Exacerbating factors: none Associated symptoms: denies other symptoms Treatments prior to arrival: none Related Data Previous Rx's Medication Instructions Recorded cholecalciferol (vitamin D3) 50 50 mcg PO DAILY 90 days #90 caps 06/09/21 mcg (2,000 unit) capsule (Vitamin D3) ferrous sulfate 325 mg (65 mg 325 mg PO DAILY 90 days #90 tabs 06/09/21 iron) tablet clotrimazole 1 % vaginal cream 1 appful vaginal BEDTIME #45 grams 06/12/21 metronidazole 500 mg tablet 500 mg PO BID 7 days #14 tabs 06/17/21 clonazepam 0.5 mg tablet (Klonopin) 0.5 mg PO BEDTIME 30 days #30 tabs 07/08/21 doxycycline hyclate 100 mg tablet 100 mg PO BID 7 days #14 tabs 10/10/21 Allergies Allergy/AdvReac Type Severity Reaction Status Date / Time No Known Allergies Allergy Verified 10/10/21 05:03 Review of Systems Constitutional: Constitutional: Reports no additional constitutional complaints, Denies chills, Denies fever(s) and Denies night sweats Eyes: Eyes: Reports no additional eye complaints, Denies blurry vision, Denies change in vision, Denies diplopia, Denies eye discharge, Denies loss of vision and Denies eye pain ENT: Denies dizziness Cardiovascular: Cardiovascular: Reports no additional cardiovascular complaints, Denies chest pain, Denies lightheadedness, Denies Loss of Conscio usness and Denies dyspnea Respiratory: Respiratory: Reports no additional respiratory complaints and Denies dyspnea Gastrointestinal: Gastrointestinal: Reports no additional gastrointestinal complaints, Denies abdominal pain, Denies melena, Denies hematochezia, Denies change in bowel habits and Denies change in stool character Genitourinary: Genitourinary: Denies hematuria, Denies urinary frequency, Denies dysuria, Denies urinary incontinence, Denies urinary hesitancy and Denies urinary urgency Musculoskeletal: Musculoskeletal: Reports no additional musculoskeletal complaints, Denies numbness and Denies tingling Comments: left lower leg pain Neurologic: Denies dizziness, Denies loss of vision, Denies numbness and Denies tingling Psychiatric: Psychiatric: Reports no additional psychiatric complaints Endocrine: Endocrine: Reports no additional endocrine complaints Hematologic/Lymphatic: Hematologic/Lymphatic: Reports no additional hematologic/lymphatic complaints Allergic/Immunologic: Allergic/Immunologic: Reports no additional allergic/immunologic complaints PMFSH Past Medical History Attestation statement: The following information was validated with the patient. Source: old records reviewed Medical History Anxiety Primary osteoarthritis of knees, bilateral Surgical History History of repair of anterior cruciate ligament of left knee (~2009) Previous section Tubal ligation status Family History Family History Other Mental health disorder Substance use disorder Social History Social History Housing: Apartment Patient Tobacco Use Status: Current everyday Tobacco user Cigarettes Per Day: 2 Advance Directives: No Advance Directives Information Provided: No 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al status: employed 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[employer] - Right Handed Physical Exam ED Vital Signs: Vital Signs - 24 hr 02/22/22 17:22 Temperature 97.2 F Pulse Rate 97 Respiratory Rate 18 Blood Pressure 135/94 H Pulse Oximetry 99 Oxygen Delivery Method Room Air BMI result Body Mass Index 44.6 Const General: cooperative, no acute distress, alert and awake Nutritional Appearance: well nourished Orientation/consciousness: patient oriented x3 Limitations: no limitations HENMT Head: Yes normal to inspection and Yes atraumatic Ears: hearing grossly normal bilaterally and external ears normal General nose exam: Normal external nose present, no nasal discharge noted and no epistaxis Face and sinus: Yes normal facial exam, No abrasion and No laceration Mouth: Normal oral and palatal mucosa present, no drooling and no muffled voice Eyes General: appearance normal, both eyes and all related structures Periorbital: periorbital findings normal Eyelids: Yes eyelids normal Conjunctivae: conjunctivae normal Pupils: Equal, round and reactive pupils present EOM: EOMs intact bilaterally Neck Neck: Yes normal visual inspection, Yes full ROM and Yes no lymphadenopathy Chest Chest palpation & inspection: normal inspection of the chest Resp Effort & Inspection: normal respiratory effort and able to speak in complete sentences Auscultation: clear to auscultation bilaterally Cardio Rate: regular rate Rhythm: regular rhythm GI Inspection: Yes normal to inspection Neuro General: patient oriented x3 and moves all extremities Cranial nerves: Yes Equal, round and reactive pupils present Cognition (Neuro): normal cognition Motor exam (neuro): 5/5 motor strength present throughout Sensory Exam: Normal double simultaneous stimulation for sensation Coordination: [id number] test normal Extrem General: Yes normal to inspection, Yes full ROM and Yes capillary refill normal Psych Appearance: grossly normal Mental Status: mental status grossly normal Affect: normal affect Attitude: cooperative Thought process: Normal thought process present Thought content: Normal thought content present Insight: Good insight present (Psych) Medical Decision Making MDM Narrative Medical decision making narrative: Patient is a 46 year old female presenting to the emergency department today with left lower leg pain. Patient's physical exam was unremarkable. Patient's left lower extremity ultrasound showed a bakers cyst. I explained my physical exam findings as well as all test results to the patient. I answered all questions asked by the patient. I stressed the importance of the patient taking her medication as prescribed. I stressed the importance of the patient following up with her primary care provider and an orthopedic provider. I stressed the importance of the patient returning to the emergency department immediately if her symptoms were to worsen or if she were to develop any dizziness, shortness of breath, difficulty breathing, chest pain, blurry vision, loss of vision, nausea, vomiting, abdominal pain, fever, chills, back pain, or any other complaints. Patient verbalized agreement and understanding with this treatment plan and discharge. Medical Records Medical records reviewed: Yes I reviewed the patient's medical records. Imaging Data Left lower leg ultrasound: Attestation: I personally reviewed and interpreted this imaging study as follows: My impression: Bakers cyst Radiologist's impression: EXAMINATION:? US VENOUS ULTRASOUND WITH DOPPLER LOWER EXTREMITY, LEFT CLINICAL INFORMATION:? Pain COMPARISON:? None TECHNIQUE: Ultrasound of the deep veins is performed from the hip to the calf with compression sonography and color and pulse Doppler assessment. Spectral analysis with color-flow imaging is performed. FINDINGS: There is normal venous compression and respiratory variation and augmented flow. The visualized common femoral vein, superficial femoral vein, profunda femoral vein, popliteal vein, and the trifurcation region shows no evidence of deep venous thrombosis. Complex Dominguez's cyst popliteal fossa measure 9.7 x 3.4 x 7.7 cm. US/US venous duplex LE LT IMPRESSION: No DVT demonstrated in the left lower extremity. ? If the patient's symptoms persist, followup ultrasound in 5 days 7 days might be of value to exclude proximal propagation from a non-visualized calf vein. ? There is complex Dominguez's cyst in the popliteal fossa 9.7 cm. Dictated By: Ugo Alvarez MD Signed By: Electronically signed by Ugo Alvarez MD 02/22/221927 Discharge Plan Discharge Clinical Impression: Dominguez cyst Patient Disposition: Home, Self-Care Instructions: Bakers Cyst (ED) Additional Instructions: Follow up with your primary care provider and an orthopedic provider. Return to the emergency department immediately if your symptoms worsen or if you develop any dizziness, shortness of breath, difficulty breathing, chest pain, blurry vision, loss of vision, nausea, vomiting, abdominal pain, fever, chills, back pain, or any other complaints. Prescriptions: No Action cholecalciferol (vitamin D3) [Vitamin D3] 50 mcg (2,000 unit) capsule 50 mcg PO DAILY 90 Days Qty: 90 0RF ferrous sulfate 325 mg (65 mg iron) tablet 325 mg PO DAILY 90 Days Qty: 90 0RF metronidazole 500 mg tablet 500 mg PO BID 7 Days Qty: 14 0RF clonazepam [Klonopin] 0.5 mg tablet 0.5 mg PO BEDTIME 30 Days Qty: 30 0RF doxycycline hyclate 100 mg tablet 100 mg PO BID 7 Days Qty: 14 0RF Rx Instructions: Please instruct patient to stop iron pills until completion of these antibiotics. clotrimazole 1 % cream 1 appful vaginal BEDTIME Qty: 45 1RF Referrals: [facility] [Provider Group] (Call to establish and follow up with an orthopedic provider. ) Albino Watts, PROFESSOR OF FORESTRY-BC [Primary Care Provider] - Stand Alone Forms: Work/School Release Print Language: Bengali
== END 2022-02-22 20:56 | disposition home or self-care (01) ==
PROVIDERS: Emergency Provider Student in an Organized Health Care Education/Training Program; PCP Nurse Practitioner Family
DX: M71.22 Synovial cyst of popliteal space [Baker], left knee (principal); R60.0 Localized edema; M79.605 Pain in left leg; F17.210 Nicotine dependence, cigarettes, uncomplicated; Z71.6 Tobacco abuse counseling; Z79.899 Other long term (current) drug therapy
CPT/HCPCS: 93971; 99282; 99283

== ENCOUNTER 2022-03-06 | Outpatient (REF) | payer OTHER, SELFPAY ==
--- NOTE | ~2022-03-06 | XR_ITS ---
EXAMINATION: XR BILATERAL STANDING AP KNEES XR KNEE, LEFT CLINICAL INFORMATION: Knee pain COMPARISON: Bilateral standing AP knees 02/21/2020, radiographs right knee 01/30/2020. TECHNIQUE: Standing AP view of both knees is performed along with lateral and axial patella views of the left knee. FINDINGS: Right: There are interval degenerative changes medial compartment with mild joint narrowing and interval spurring from the medial femoral condyle and medial tibial plateau. No visible erosive change or chondrocalcinosis. No destructive process or periostitis. Left: There are post operative changes consistent with prior ACL repair with tibial screw, tibial femoral tunnel, and small plate just above lateral femoral condyle. Hardware is intact. No destructive process or periostitis or osteolysis. There is no fracture or dislocation. There is tricompartment osteoarthritis, greatest medial compartment with joint narrowing osteophytes from the femoral condyles and tibial plateau. Mild secondary genu varus. No erosive change or visible chondrocalcinosis. There is trace thickening suprapatellar bursa. No overt effusion. Hoffa's fat pad appears normal. There is some benign round soft tissue mineralization above or below the patella likely superficial to the capsule. Axial view patella shows no lateralization or tilting. XR/XR knee standing BI IMPRESSION: Right: -Interval degenerative changes medial knee joint compartment since prior imaging 2019. Left: -Postoperative changes consistent with prior ACL repair. No destructive process. Hardware intact. -Tricompartment osteoarthritis, greatest medial compartment. Mild secondary genu varus. Trace thickening suprapatellar bursa.
--- NOTE | ~2022-03-06 | XR_ITS ---
EXAMINATION: XR BILATERAL STANDING AP KNEES XR KNEE, LEFT CLINICAL INFORMATION: Knee pain COMPARISON: Bilateral standing AP knees 02/21/2020, radiographs right knee 01/30/2020. TECHNIQUE: Standing AP view of both knees is performed along with lateral and axial patella views of the left knee. FINDINGS: Right: There are interval degenerative changes medial compartment with mild joint narrowing and interval spurring from the medial femoral condyle and medial tibial plateau. No visible erosive change or chondrocalcinosis. No destructive process or periostitis. Left: There are post operative changes consistent with prior ACL repair with tibial screw, tibial femoral tunnel, and small plate just above lateral femoral condyle. Hardware is intact. No destructive process or periostitis or osteolysis. There is no fracture or dislocation. There is tricompartment osteoarthritis, greatest medial compartment with joint narrowing osteophytes from the femoral condyles and tibial plateau. Mild secondary genu varus. No erosive change or visible chondrocalcinosis. There is trace thickening suprapatellar bursa. No overt effusion. Hoffa's fat pad appears normal. There is some benign round soft tissue mineralization above or below the patella likely superficial to the capsule. Axial view patella shows no lateralization or tilting. XR/XR knee LT 2V IMPRESSION: Right: -Interval degenerative changes medial knee joint compartment since prior imaging 2019. Left: -Postoperative changes consistent with prior ACL repair. No destructive process. Hardware intact. -Tricompartment osteoarthritis, greatest medial compartment. Mild secondary genu varus. Trace thickening suprapatellar bursa.
== END 2022-03-06 00:01 ==
LOC: HO.HOSX
PROVIDERS: Visit Provider Physician Assistant
DX: M25.562 Pain in left knee (principal)
CPT/HCPCS: 73560; 73565

== ENCOUNTER 2022-03-06 10:40 | Outpatient (REF) | payer OTHER, SELFPAY ==
--- NOTE | ~2022-03-06 | MM_ITS ---
EXAMINATION: MM DIAGNOSTIC DIGITAL BREAST TOMOSYNTHESIS, RIGHT CLINICAL INFORMATION: Short interval six-month follow-up probable benign nodular asymmetric density anterior upper outer right breast related to microcysts on targeted ultrasound. The lifetime risk of breast cancer based on the Tyrer-Cuzick Model is 8%. COMPARISON: Mammography: 08/28/2021, 06/24/2021, outside mammography 11/19/2010 ([place]). Targeted right breast ultrasound 08/28/2021. TECHNIQUE: Digital breast tomosynthesis is performed in both the craniocaudal and mediolateral oblique views along with computer-aided detection (CAD). Synthesized 2D images are generated from the tomosynthesis. FINDINGS: There are scattered areas of fibroglandular density (ACR BI-RADS breast composition Category b). The nodular asymmetric density is substantially decreased from prior study and the fibroglandular pattern appears similar to outside exam 2011. There is no architectural abnormality or significant mass or abnormal calcifications. The axilla and skin contours are unremarkable. Results are provided to the patient at time of visit by the technologist. MM/MM tomosynthesis diagnostic RT IMPRESSION: No significant changes from outside mammography 2010. No mammographic evidence of malignancy. ASSESSMENT: BI-RADS 2: Benign RECOMMENDATION: Routine annual mammography screening. This patient's information was entered into a reminder system with a target due date for their next mammogram.
== END 2022-03-06 10:41 | disposition home or self-care (01) ==
LOC: HO.MAMMO 10:40
PROVIDERS: PCP Nurse Practitioner Family; Visit Provider Nurse Practitioner Family
DX: M17.12 Unilateral primary osteoarthritis, left knee (principal); Q83.9 Congenital malformation of breast, unspecified
CPT/HCPCS: 20610; 77061; 77065; 99202; J1040

== ENCOUNTER 2022-04-29 09:00 | Outpatient (RCR) | payer OTHER, SELFPAY ==
--- NOTE | 2022-05-08 09:34 | MHC.PT.DC ---
[facility] [place] Office [place] Office [place] Office [address] [phone] F: [phone] F: [phone] F: [phone] F: [phone] Physical Therapy Discharge Report Diagnosis: OA of L knee Date of Surgery: n/a Date of Evaluation: 04/10/22 Date of Discharge: 05/08/22 Treatments to Date: 2 Cancellations to Date: 2 No Shows to Date: 2 Discharge Status: Visit Non-compliance Discharge Summary: Pt has failed to comply with [facility] attendance policy and no showed 2 appointments. Pt to be d/c at this time. Electronically signed by: Anum Moncada PT, DPT, ATC Please sign and return to therapist. Thank you for your referral.
== END 2022-05-08 09:34 | disposition home or self-care (01) ==
LOC: HO.PTCHIC 09:00
PROVIDERS: PCP Nurse Practitioner Family; Visit Provider Physician Assistant
DX: M17.12 Unilateral primary osteoarthritis, left knee (principal)
CPT/HCPCS: 97110; 97140; 97161

== ENCOUNTER 2022-05-25 18:12 | Emergency (ER) | payer OTHER, SELFPAY ==
[2022-05-25 18:24] VITALS: BP 155/102; PULSE 92; RESP 20; TEMP 36.3; O2SAT 98; BMI 41.5
[2022-05-25 18:40] LABS: Appearance Urine Turbid; Color Urine Yellow; Glucose Urine UA Negative (Negative); Leukocyte Esterase Urine Negative (Negative); Nitrite Urine Negative (Negative); PH 6.5 (5.0-9.0); Specific Gravity - Urine 1.015 (1.005-1.025); Urine Blood Negative (Negative); Urine Ketones Trace mg/dL (Negative); Urine Protein Negative (Neg-Trace)
--- NOTE | 2022-05-25 19:32 | ED_ITS ---
HPI - Female Genitourinary General Chief complaint: Urogenital-Female Stated complaint: UTI? Time Seen by Provider: 05/25/22 19:31 Source: patient Mode of arrival: ambulatory Limitations: no limitations History of Present Illness HPI Narrative: 46-year-old female presents with abnormal malodorous vaginal discharge, urinary frequency, and feels that she may have a retained tampon. MD elicited complaint: UTI and vaginal discharge Onset (ago): day(s) Location of symptoms: vaginal Severity: mild Female Urogenital Radiation: Non-Radiating Severity scale (1-10): 2 Vaginal discharge: white, thick/cheesy and vaginal odor Vaginal bleeding: none Urinary symptoms: Dysuria Exacerbating factors: none Relieving factors: none Associated symptoms: denies other symptoms Treatment prior to arrival: none Sexual activity: Yes Patient : No Related Data Home Medications Medication Instructions Recorded Confirmed hydroxyzine HCl 25 mg tablet 50 mg PO BID PRN anxiety 03/06/22 risperidone 1 mg tablet 1 mg PO BID 03/06/22 trazodone 50 mg tablet 0 mg PO 03/06/22 Previous Rx's Medication Instructions Recorded cholecalciferol (vitamin D3) 50 50 mcg PO DAILY 90 days #90 caps 06/09/21 mcg (2,000 unit) capsule (Vitamin D3) ferrous sulfate 325 mg (65 mg 325 mg PO DAILY 90 days #90 tabs 06/09/21 iron) tablet clonazepam 0.5 mg tablet (Klonopin) 0.5 mg PO BEDTIME 30 days #30 tabs 07/08/21 fluconazole 150 mg tablet 150 mg PO Q3D 2 doses #2 tabs 05/25/22 (Diflucan) metronidazole 500 mg tablet 500 mg PO Q8H 7 days #21 tabs 05/25/22 Allergies Allergy/AdvReac Type Severity Reaction Status Date / Time No Known Allergies Allergy Verified 03/06/22 11:49 Review of Systems Review of Systems: Constitutional: No Fever, No Chills Cardiovascular: No Chest Pain, No SOB Respiratory: No Cough, No Dyspnea Gastrointestinal: No Nausea, No Vomiting, No Diarrhea, No abdominal Pain Genitourinary: Positive malodorous discharge, Positive Dysuria, No Hematuria Musculoskeletal: No joint pain, No Myalgias, No Joint Swelling Skin: No Skin lacerations, No rash Neuro: No Weakness, No Dizziness, No Headache Yes all other systems are reviewed and are negative PMFSH Past Medical History Attestation statement: The following information was validated with the patient. 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 Oriented X3. No acute distress. Eyes: Pupils equal, round and reactive to light. ENT: Pharynx normal. Neck: Normal inspection. Neck supple. CVS: Normal heart rate and rhythm. Pulses normal. Respiratory: No respiratory distress. Breath sounds normal. Abdomen: Soft and nontender. Genitourinary: Labia normal, copious amounts of white malodorous discharge, no lesions noted, parous cervix with thick white malodorous discharge, no cervical motion tenderness, no adnexal tenderness Skin: Skin warm and dry. Normal skin color. Normal skin turgor. Extremities: Date well-balanced well coordinated Neuro: No motor deficit. No sensory deficit. Cranial nerves 2-12 intact Course Course Course Narrative: 46-year-old female presents for abnormal malodorous vaginal discharge and dysuria. Patient states that she may have a retained tampon she does not report any fevers, chills, abdominal pain or distention. Last episode of intercourse yesterday, no reports of dyspareunia. Patient does not believe that she is at risk for sexually transmitted infection. I did describe in detail pelvic exam, patient agrees to continue with exam. Exam indicates normal labia, no vaginal lesions or abrasions, copious amounts of thick white malodorous discharge consistent with BV and candidiasis. Cervix is otherwise normal, no cervical motion tenderness or adnexal tenderness to palpation. I did test for CT NG, BV, and Trichomonas. Will treat empirically for BV and candidiasis. Patient does understand that if STI panel is positive, she should return for treatment. Patient is afebrile, appears nontoxic, and has no other physical complaints. Patient verbalized understanding of and agrees to plan of care discharge home. Verbalized understanding of signs and symptoms indicating need for emergent intervention. Medications Administered Discontinued Medications Generic Name Dose Route Start Last Admin Trade Name Freq PRN Reason Stop Dose Admin Fluconazole 150 mg 05/25/22 20:38 05/25/22 20:46 Fluconazole 150 Mg Tablet PO 05/25/22 20:39 150 mg ONCE ONE Administration Metronidazole 500 mg 05/25/22 20:38 05/25/22 20:46 Metronidazole 500 Mg Tablet PO 05/25/22 20:39 500 mg ONCE ONE Administration Medical Decision Making Differential Diagnosis Differential Diagnoses: The differential diagnosis associated with the presentation includes Retained foreign body, BV, Trichomonas, candidiasis, STI, PID Admission/Observation Consideration of admission/observation: Escalation of care including admission/observation considered If patient presents with PID symptoms, will consider admission Lab Data MDM Lab Attestation statement: I reviewed the patient's lab results. Labs: Lab Results 05/25/22 Range/Units 18:33 Urine Color Yellow Urine Appearance Turbid Urine pH 6.5 (5.0-9.0) Ur Specific [place] 1.015 (1.005-1.025) Urine Protein Negative (Neg-Trace) mg/dL Urine Glucose (UA) Negative (Negative) mg/dL Urine Ketones Trace (Negative) mg/dL Urine Blood Negative (Negative) Urine Nitrite Negative (Negative) Ur Leukocyte Esterase Negative (Negative) External Record Review External record reviewed: Outpatient record Prescription Management I considered prescription management with: Antibiotic Chronic Conditions Patient?s care impacted by: Hypertension Discharge Plan Discharge Clinical Impression: Candidiasis, Bacterial vaginosis Patient Disposition: Home, Self-Care Instructions: Bacterial Vaginosis (ED), Yeast Infection (ED) Additional Instructions: You were evaluated for vaginal concerns. We are treating you for bacterial vaginosis and candidiasis. For bacterial vaginosis please take Flagyl (metronidazole) 500 mg every 8 hours for the next 7 days. Do not drink any alcohol while taking this medication. You will have significant and severe adverse reactions. For candidiasis please take Diflucan 150 mg as directed. We gave your 1st dose in the emergency department on 05/25/2022. Take your 2nd dose on 05/28/2022. Take your 3rd dose on 06/01/2022 Drink plenty of fluids. If symptoms worsen consider following up with the locomotive electrician Thank you for choosing this emergency department for evaluation. Please follow-up with primary care physician as needed. Return to the emergency department for any new, concerning, or worsening symptoms. Prescriptions: New metronidazole 500 mg tablet 500 mg PO Q8H 7 Days Qty: 21 0RF fluconazole [Diflucan] 150 mg tablet 150 mg PO Q3D Qty: 2 0RF Rx Instructions: may repeat second dose 72 hrs after first dose if symptoms persist No Action cholecalciferol (vitamin D3) [Vitamin D3] 50 mcg (2,000 unit) capsule 50 mcg PO DAILY 90 Days Qty: 90 0RF ferrous sulfate 325 mg (65 mg iron) tablet 325 mg PO DAILY 90 Days Qty: 90 0RF clonazepam [Klonopin] 0.5 mg tablet 0.5 mg PO BEDTIME 30 Days Qty: 30 0RF risperidone 1 mg tablet 1 mg PO BID trazodone 50 mg tablet 0 mg PO hydroxyzine HCl 25 mg tablet 50 mg PO BID PRN (Reason: anxiety) Interventions: ED Discharge Assessment Last Done: 05/25/22 21:00 Discharge Date/Time: 05/25/22 21:00
[2022-05-26 02:16] LABS: CT PCR NOT DETECTED (Not Detect.); NG PCR NOT DETECTED (Not Detect.)
[2022-05-26 09:16] LABS: BV Int Neg Control Negative (Negative); BV Int Pos Control Positive (Positive)
== END 2022-05-25 21:00 | disposition home or self-care (01) ==
PROVIDERS: Nurse Practitioner Family; Emergency Provider Internal Medicine; PCP Nurse Practitioner Family
DX: B37.31 Acute candidiasis of vulva and vagina (principal); I10 Essential (primary) hypertension; F17.210 Nicotine dependence, cigarettes, uncomplicated
CPT/HCPCS: 81003; 87480; 87491; 87510; 87591; 87660; 99282; 99283

== ENCOUNTER 2022-07-01 10:02 | Outpatient (REF) | payer OTHER, SELFPAY ==
[2022-07-01 11:21] LABS: Appearance Urine Clear; Color Urine Dark Yellow; Glucose Urine UA Negative (Negative); Leukocyte Esterase Urine Negative (Negative); Nitrite Urine Negative (Negative); Specific Gravity - Urine >= 1.030 (1.005-1.025); Urine Blood Negative (Negative); Urine Ketones Trace mg/dL (Negative); Urine Protein Trace mg/dL (Neg-Trace)
[2022-07-01 11:24] LABS: MANUAL DIFF FLAG NO
[2022-07-01 11:44] LABS: Basophils Percent Auto 0.7 % (0-2); Eosinophils Absolute Auto 0.1 X10*3/uL (0.0-0.4); Eosinophils Percent Auto 2.2 % (0-4); Hematocrit 42.7 % (37.0-47.0); Hemoglobin 14.3 g/dl (12.0-16.0); Imm Gran Abs Auto 0.02 X10*3/uL (0.00-0.03); Imm Gran Pct Auto 0.3 % (0.0-0.4); Lymphocytes Absolute Auto 2.4 X10*3/uL (1.2-4.9); Lymphocytes Percent Auto 40.1 % (20-40); Mean Corpuscular HGB Conc 33.5 g/dl (31.0-35.0); Mean Corpuscular Hemoglobin 32.3 pg (27.0-33.0); Mean Corpuscular Volume 96.4 fL (80.0-98.0); Mean Platelet Volume 9.9 fL (9.4-12.3); Monocytes Absolute Auto 0.3 X10*3/uL (0.1-1.2); Monocytes Percent Auto 4.4 % (2-11); Neutrophils Absolute Auto 3.1 x10*3/uL (2.0-8.3); Neutrophils Percent Auto 52.3 % (45-73); Platelet Count 291 X10*3/uL (160-400); Red Blood Count 4.43 X10*6/uL (4.20-5.50); Red Cell Distribution Width 13.2 % (11.0-16.0); White Blood Count 5.9 X10*3/uL (4.8-10.8)
[2022-07-01 11:58] LABS: Alanine Aminotransferase 8 U/L (0-31); Alkaline Phosphatase 86 U/L (39-117); Anion Gap 12 (12-20); Aspartate Amino Transferase 11 U/L (5-31); Bilirubin Total 1.2 mg/dL (0.0-1.0); Blood Urea Nitrogen 9 mg/dL (9-16); Calcium 9.4 mg/dL (8.4-10.2); Carbon Dioxide 24 mmol/L (22-29); Chloride 107 mmol/L (96-108); Cholesterol 194 mg/dL; Estimated Glomerular Filt Rate > 60; Glucose Fasting 115 mg/dL (60-99); HDL Cholesterol 47 mg/dL; LDL Cholesterol Calculated 131 mg/dl; Potassium 3.3 mmol/L (3.3-5.1); Sodium 140 mmol/L (135-145); Total Protein 6.5 g/dL (6.5-8.0); Triglycerides 82 mg/dL
== END 2022-07-01 10:03 | disposition home or self-care (01) ==
LOC: HO.HMGCLDS 10:02
PROVIDERS: PCP Nurse Practitioner Family; Visit Provider Nurse Practitioner Family
DX: Z00.00 Encounter for general adult medical examination without abnormal findings (principal)
CPT/HCPCS: 36415; 80053; 80061; 81003; 84443; 85025

== ENCOUNTER → 2022-07-09 13:29 | Outpatient (BNVA) | payer OTHER, SELFPAY | PROVIDERS: PCP Nurse Practitioner Family; Visit Provider Physician Assistant | DX: M17.12 Unilateral primary osteoarthritis, left knee (principal) | CPT/HCPCS: 99212 ==

== ENCOUNTER 2022-07-17 17:46 | Emergency (ER) | payer OTHER, SELFPAY ==
--- NOTE | 2022-07-17 18:53 | ED.FEMALEGU ---
HPI - Female Genitourinary General Chief complaint: General Medical <JESSICA Beckett - Last Filed: 07/17/22 19:12> Stated complaint: STD check <JESSICA Beckett - Last Filed: 07/17/22 19:12> Time Seen by Provider: 07/17/22 22:57 <JESSICA Beckett - Last Filed: 07/17/22 19:12> Source: patient <Sabine Huerta MD - Last Filed: 07/17/22 23:40> Mode of arrival: ambulatory <Sabine Huerta MD - Last Filed: 07/17/22 23:40> Limitations: no limitations <Sabine Huerta MD - Last Filed: 07/17/22 23:40> History of Present Illness HPI Narrative: Patient comes in the emergency room complaining of vaginal itching. Patient states that her sexual partner is here as well, patient's partner has penile discharge. Patient is requesting to be treated for STD. Patient denies urinary discomfort, no vaginal discharge. No fever chills, no abdominal pain. <Sabine Huerta MD - Last Filed: 07/17/22 23:40> Related Data Home medications: Home Medications Medication Instructions Recorded Confirmed hydroxyzine HCl 25 mg tablet 50 mg PO BID PRN anxiety 03/06/22 06/25/22 risperidone 1 mg tablet 1 mg PO BID 03/06/22 06/25/22 trazodone 50 mg tablet 0 mg PO 03/06/22 06/25/22 Previous Rx's Medication Instructions Recorded clonazepam 0.5 mg tablet (Klonopin) 0.5 mg PO BEDTIME 30 days #30 tabs 07/08/21 cholecalciferol (vitamin D3) 50 50 mcg PO DAILY 90 days #90 caps 06/25/22 mcg (2,000 unit) capsule (Vitamin D3) ferrous sulfate 325 mg (65 mg 325 mg PO DAILY 90 days #90 tabs 06/25/22 iron) tablet doxycycline hyclate 100 mg tablet 100 mg PO BID #14 tabs 07/17/22 <JESSICA Beckett - Last Filed: 07/17/22 19:12> Allergies/Adverse reactions: Allergies Allergy/AdvReac Type Severity Reaction Status Date / Time No Known Allergies Allergy Verified 07/09/22 13:46 <JESSICA Beckett - Last Filed: 07/17/22 19:12> Review of Systems Review of Systems: Constitutional : No Weight loss, No Fever, No Chills, No Night Sweats, No Fatigue, No Malaise ENT/Mouth : No Hearing loss, No Ear Pain, No Nasal Congestion, No Sinus Pain, No Hoarseness, No sore throat, No Rhinorrhea, No Swallowing Difficulty Eyes: No Eye Pain, No Swelling, No Redness, No Foreign Body, No Discharge, No Vision Changes Cardiovascular : No Chest Pain, No SOB, No Dyspnea on Exertion, No Orthopnea, No Edema, No Palpitations Respiratory : No Cough, No Sputum, No Wheezing, No Smoke Exposure, No Dyspnea Gastrointestinal : No Nausea, No Vomiting, No Diarrhea, No Constipation, No abdominal Pain, No Hematochezia, No Melena Genitourinary : Complaining of vaginal itching, No Dysuria, No Urinary Frequency, No Hematuria, No Urinary Incontinence, No Urgency, No Flank Pain, No Urinary Flow Changes, No Hesitancy Musculoskeletal : No joint pain, No Myalgias, No Joint Swelling Skin : No Skin Lesions, No rash Neuro : No Weakness, No Numbness, No Paresthesias, No Loss of Consciousness, No Dizziness, No Headache Psych : No Anxiety/Panic, No Depression, No SI/HI/AH/VH, No Social Issues, Heme/Lymph: No Bruising, No Bleeding,No Lymphadenopathy Endocrine : No Polyuria, No Polydipsia, No Temperature Intolerance <Sabine Huerta MD - Last Filed: 07/17/22 23:40> REPLACED BY [facility] Past Medical History Medical History: Medical History Anxiety Bipolar 1 disorder Primary osteoarthritis of knees, bilateral <JESSICA Beckett - Last Filed: 07/17/22 19:12> Surgical History: Surgical History History of repair of anterior cruciate ligament of left knee (~2009) Hx of arthroscopy of right knee Previous section Tubal ligation status <JESSICA Beckett - Last Filed: 07/17/22 19:12> Family History Family History: Family History Other Mental health disorder Substance use disorder <JESSICA Beckett - Last Filed: 07/17/22 19:12> Social History Social History: Social History Housing: Apartment Patient Tobacco Use Status: Current everyday Tobacco user Cigarettes Per Day: 5 e-Cigarette/Vaping Use: Never Used Second Hand Smoke Exposure: No Advance Directives: No Advance Directives Information Provided: No 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al status: employed 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[employer], 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 Cognitive needs: No Hearing needs: No Vision needs: No <JESSICA Beckett - Last Filed: 07/17/22 19:12> Physical Exam Vital Signs: Vital Signs: Last Vital Signs Temp 97.8 F 07/17/22 23:14 Pulse 76 07/17/22 23:14 Resp 18 07/17/22 23:14 BP 124/72 07/17/22 23:14 Pulse Ox 100 07/17/22 23:14 O2 Del Method 07/17/22 23:14 BMI result Body Mass Index 40.7 <JESSICA Beckett - Last Filed: 07/17/22 19:12> Vital Signs: Last Vital Signs Temp 97.8 F 07/17/22 23:14 Pulse 76 07/17/22 23:14 Resp 18 07/17/22 23:14 BP 124/72 07/17/22 23:14 Pulse Ox 100 07/17/22 23:14 O2 Del Method 07/17/22 23:14 BMI result Body Mass Index 40.7 <Sabine Huerta MD - Last Filed: 07/17/22 23:40> Const: Other: Appearance: Alert. Oriented X3. No acute distress. Eyes: Pupils equal, round and reactive to light. ENT: Pharynx normal. Neck: Normal inspection. Neck supple. No lymph nodes noted. No crepitus CVS: Normal heart rate and rhythm. Pulses normal. Normal S1 and S2 Respiratory: No respiratory distress. Breath sounds normal. No Wheezing. No rales Abdomen: Soft and nontender. No rigidity. No distention. : No vaginal discharge, no erythema, no candidiasis suspected Skin: Skin warm and dry. Normal skin color. Normal skin turgor. Extremities: No lower extremity edema. No Lacerations. No Rash Neuro: Oriented X 3. No motor deficit. No sensory deficit. Moving all extremities. No slurred speech. CN 2 through 12 grossly intact Psych: calm, cooperative, normal affect <Sabine Huerta MD - Last Filed: 07/17/22 23:40> Course Course Course Narrative: RME- 20PM 46yoF presenting to the ER with her boyfriend with complaints of vaginal itching. Her boyfriend is being tested for STDs due to abnormal discharge. He reported that the patient had abnormal discharge although patient denies any abnormal discharge. She denies any fevers, abdominal pain, back pain, foul odor, lesions or rashes to the vaginal area. Plan: UA, UHCG, bacterial vaginosis swab, Trichomonas and yeast swab, gonorrhea chlamydia urine <JESSICA Beckett - Last Filed: 07/17/22 19:12> Medical Decision Making Medical Decision Making [facility] Narrative: -patient was treated empirically with ceftriaxone and doxycycline -swabs were sent to the lab <Sabine Huerta MD - Last Filed: 07/17/22 23:40> Differential Diagnosis Differential Diagnoses: The differential diagnosis associated with the presentation includes <Sabine Huerta MD - Last Filed: 07/17/22 23:40> Lab Data Labs: Lab Results 07/17/22 07/17/22 Range/Units 22:49 22:49 Urine Color Dark Yellow Urine Appearance Cloudy Urine pH 6.0 (5.0-9.0) Ur Specific [place] 1.025 (1.005-1.025) Urine Protein Negative (Neg-Trace) mg/dL Urine Glucose (UA) Negative (Negative) mg/dL Urine Ketones Trace (Negative) mg/dL Urine Blood Negative (Negative) Urine Nitrite Negative (Negative) Ur Leukocyte Esterase Negative (Negative) Urine Test NEGATIVE (NEGATIVE) <JESSICA Beckett - Last Filed: 07/17/22 19:12> Lab Results 07/17/22 07/17/22 Range/Units 22:49 22:49 Urine Color Dark Yellow Urine Appearance Cloudy Urine pH 6.0 (5.0-9.0) Ur Specific [place] 1.025 (1.005-1.025) Urine Protein Negative (Neg-Trace) mg/dL Urine Glucose (UA) Negative (Negative) mg/dL Urine Ketones Trace (Negative) mg/dL Urine Blood Negative (Negative) Urine Nitrite Negative (Negative) Ur Leukocyte Esterase Negative (Negative) Urine Test NEGATIVE (NEGATIVE) <Sabine Huerta MD - Last Filed: 07/17/22 23:40> Discharge Plan Discharge Clinical Impression: Exposure to sexually transmitted disease (STD) <JESSICA Beckett - Last Filed: 07/17/22 19:12> Patient Disposition: Home, Self-Care <JESSICA Beckett - Last Filed: 07/17/22 19:12> Instructions: Sexually Transmitted Diseases (ED) <JESSICA Beckett - Last Filed: 07/17/22 19:12> Additional Instructions: Please follow-up with your primary care physician tomorrow. If you have any worsening or new symptoms, please return to the emergency room or call 911 <JESSICA Beckett - Last Filed: 07/17/22 19:12> Prescriptions: New doxycycline hyclate 100 mg tablet 100 mg PO BID Qty: 14 0RF No Action clonazepam [Klonopin] 0.5 mg tablet 0.5 mg PO BEDTIME 30 Days Qty: 30 0RF ferrous sulfate 325 mg (65 mg iron) tablet 325 mg PO DAILY 90 Days Qty: 90 0RF cholecalciferol (vitamin D3) [Vitamin D3] 50 mcg (2,000 unit) capsule 50 mcg PO DAILY 90 Days Qty: 90 0RF risperidone 1 mg tablet 1 mg PO BID trazodone 50 mg tablet 0 mg PO hydroxyzine HCl 25 mg tablet 50 mg PO BID PRN (Reason: anxiety) <JESSICA Beckett - Last Filed: 07/17/22 19:12>
[2022-07-17 19:12] VITALS: BP 128/75; PULSE 74; RESP 16; TEMP 36.8; O2SAT 100; BMI 40.7
[2022-07-17 23:02] LABS: Appearance Urine Cloudy; Color Urine Dark Yellow; Glucose Urine UA Negative (Negative); Leukocyte Esterase Urine Negative (Negative); Nitrite Urine Negative (Negative); Specific Gravity - Urine 1.025 (1.005-1.025); Urine Blood Negative (Negative); Urine Ketones Trace mg/dL (Negative); Urine Protein Negative (Neg-Trace)
[2022-07-17 23:09] LABS: UPreg QC Valid YES; Urine Pregnancy NEGATIVE (NEGATIVE)
[2022-07-17 23:14] VITALS: BP 124/72; PULSE 76; RESP 18; TEMP 36.6; O2SAT 100
[2022-07-17] MEDS: Doxycycline Monohydrate 100 MG CAPSULE PO (23:49)
[2022-07-17] MEDS: cefTRIAXone sodium 500 MG, Lidocaine HCl 1 % MPF 1 ML IM (23:49)
[2022-07-18 02:52] LABS: CT PCR NOT DETECTED (Not Detect.); NG PCR NOT DETECTED (Not Detect.)
[2022-07-18 12:28] LABS: BV Int Neg Control Negative (Negative); BV Int Pos Control Positive (Positive)
== END 2022-07-17 23:58 | disposition home or self-care (01) ==
PROVIDERS: Physician Assistant Medical; Emergency Provider Emergency Medicine; PCP Nurse Practitioner Family
DX: Z20.2 Contact with and (suspected) exposure to infections with a predominantly sexual mode of transmission (principal); F17.210 Nicotine dependence, cigarettes, uncomplicated
CPT/HCPCS: 0353U; 81003; 81025; 87480; 87510; 87660; 96372; 99283; 99284; J0696

== ENCOUNTER → 2022-08-06 08:01 | Outpatient (BNVA) | payer OTHER, SELFPAY | PROVIDERS: PCP Nurse Practitioner Family; Referring Provider Nurse Practitioner Family; Visit Provider Physician Assistant | DX: Z12.11 Encounter for screening for malignant neoplasm of colon (principal); M17.12 Unilateral primary osteoarthritis, left knee | CPT/HCPCS: 20610; 99202; 99212; J7323 ==

== ENCOUNTER → 2022-08-13 09:11 | Outpatient (BNVA) | payer OTHER, SELFPAY | PROVIDERS: PCP Nurse Practitioner Family; Visit Provider Physician Assistant | DX: M17.12 Unilateral primary osteoarthritis, left knee (principal) | CPT/HCPCS: 20610; J7323 ==

== ENCOUNTER → 2022-08-20 09:49 | Outpatient (BNVA) | payer OTHER, SELFPAY | PROVIDERS: PCP Nurse Practitioner Family; Visit Provider Physician Assistant | DX: M17.12 Unilateral primary osteoarthritis, left knee (principal); M25.562 Pain in left knee | CPT/HCPCS: 20610; J7323 ==

== ENCOUNTER 2023-01-05 10:56 | Outpatient (REF) | payer OTHER, SELFPAY ==
--- NOTE | ~2023-01-05 | MM_ITS ---
EXAMINATION: MM SCREENING DIGITAL BREAST TOMOSYNTHESIS, BILATERAL CLINICAL INFORMATION: Screening. Asymptomatic. The lifetime risk of breast cancer based on the Tyrer-Cuzick Model is 7.9%. COMPARISON: Mammography: 03/06/2022, 08/28/2021, 06/24/2021, and 06/21/2010. TECHNIQUE: Digital breast tomosynthesis is performed in both the craniocaudal and mediolateral oblique views along with computer-aided detection (CAD). Synthesized 2D images are generated from the tomosynthesis. FINDINGS: There are scattered areas of fibroglandular density (ACR BI-RADS breast composition Category b). There are stable benign nodules in both lateral breasts, unchanged from prior exams. There are no suspicious masses, suspicious grouped calcifications, or areas of architectural distortion. The parenchymal pattern is stable from prior exams. MM/MM tomosynthesis screening BI IMPRESSION: No mammographic evidence of malignancy. ASSESSMENT: BI-RADS BI-RADS 2 - Benign Findings RECOMMENDATION: Routine annual mammography screening. 1 year F/U This examination should not preclude the clinical evaluation of a suspicious palpable abnormality. This patient's information was entered into a reminder system with a target due date for their next mammogram.
== END 2023-01-05 10:57 | disposition home or self-care (01) ==
LOC: HO.MAMMO 10:56
PROVIDERS: PCP Nurse Practitioner Family; Visit Provider Nurse Practitioner Family
DX: Z12.31 Encounter for screening mammogram for malignant neoplasm of breast (principal)
CPT/HCPCS: 77063; 77067

== ENCOUNTER → 2023-01-05 11:00 | Outpatient (BNV) | payer OTHER, SELFPAY | PROVIDERS: PCP Nurse Practitioner Family; Visit Provider Radiology Diagnostic Radiology | DX: Z12.31 Encounter for screening mammogram for malignant neoplasm of breast (principal) | CPT/HCPCS: 77063; 77067 ==

== ENCOUNTER 2023-02-01 01:20 | Emergency (ER) | payer OTHER, SELFPAY ==
[2023-02-01 01:22] VITALS: BP 129/77; PULSE 119; RESP 18; TEMP 37.2; O2SAT 96; BMI 41.2
[2023-02-01 02:00] VITALS: RESP 18
--- NOTE | 2023-02-01 02:17 | PC.NURSE ---
Brought over via security intern with credit charge authorizer. Pt endoreses depression. Denies SI/HI/Hallucinations. Endorses recent etoh use and cocaine use. Pt physically threatened ED staff in main when explaining private branch exchange service adviser process. Verbally redirectable at this time. Pt states increasing depression since of daughter.
--- NOTE | 2023-02-01 02:25 | PC.NURSE ---
Preliminary med rec completed based on last claim history and patient. Pharmacy to confirm due to depressive state/hyperverbal state and etoh use.
--- NOTE | 2023-02-01 02:26 | PC.NURSE ---
Addendum entered by Susanne Sullivan 02/01/23 02:47: Pt remains tearful and hyperverbal talking about [her] daughter's dealth rattle and recently being shown a video of it, describing in detail how her daughter was snoring and lifted to the cough where she later . Original Note: Pt appears to be acutely panicked and hyperfixated on authority figures that include nursing staff and security.
--- NOTE | 2023-02-01 02:27 | PC.NURSE ---
belongings locked in locker six.
[2023-02-01 02:48] LABS: MANUAL DIFF FLAG NO
[2023-02-01 02:50] LABS: Basophils Absolute Auto 0.1 X10*3/uL (0.0-0.2); Basophils Percent Auto 0.9 % (0-2); Eosinophils Absolute Auto 0.3 X10*3/uL (0.0-0.4); Eosinophils Percent Auto 2.9 % (0-4); Hematocrit 40.5 % (37.0-47.0); Hemoglobin 13.9 g/dl (12.0-16.0); Imm Gran Abs Auto 0.03 X10*3/uL (0.00-0.03); Imm Gran Pct Auto 0.3 % (0.0-0.4); Lymphocytes Absolute Auto 3.9 X10*3/uL (1.2-4.9); Lymphocytes Percent Auto 42.6 % (20-40); Mean Corpuscular HGB Conc 34.3 g/dl (31.0-35.0); Mean Corpuscular Hemoglobin 32.2 pg (27.0-33.0); Mean Corpuscular Volume 93.8 fL (80.0-98.0); Monocytes Absolute Auto 0.5 X10*3/uL (0.1-1.2); Monocytes Percent Auto 5.7 % (2-11); Neutrophils Absolute Auto 4.4 x10*3/uL (2.0-8.3); Neutrophils Percent Auto 47.6 % (45-73); Platelet Count 335 X10*3/uL (160-400); Red Blood Count 4.32 X10*6/uL (4.20-5.50); Red Cell Distribution Width 12.6 % (11.0-16.0); White Blood Count 9.2 X10*3/uL (4.8-10.8)
[2023-02-01 03:07] LABS: Ethanol 135 mg/dL
[2023-02-01 03:10] LABS: Alanine Aminotransferase 12 U/L (0-31); Albumin Level 4.6 g/dL (3.5-5.0); Alkaline Phosphatase 89 U/L (39-117); Anion Gap 18 (12-20); Aspartate Amino Transferase 17 U/L (5-31); Bilirubin Direct 0.3 mg/dL (0.0-0.5); Blood Urea Nitrogen 10 mg/dL (9-16); Calcium 10.1 mg/dL (8.4-10.2); Carbon Dioxide 19 mmol/L (22-29); Chloride 106 mmol/L (96-108); Creatinine Clr Calc Pharmacy 105.9; Estimated Glomerular Filt Rate > 60; Glucose Random 77 mg/dL (60-115); Lipase 11 U/L (8-78); Potassium 3.4 mmol/L (3.3-5.1); Sodium 140 mmol/L (135-145); Total Protein 7.5 g/dL (6.5-8.0)
[2023-02-01 03:20] LABS: HCG Quantitative < 2 mIU/mL
[2023-02-01 03:24] LABS: Appearance Urine Cloudy; Color Urine Yellow; Glucose Urine UA Negative (Negative); Leukocyte Esterase Urine Trace (Negative); Nitrite Urine Negative (Negative); PH 5.5 (5.0-9.0); Specific Gravity - Urine <= 1.005 (1.005-1.025); UMIC TRIGGER UACC YES; Urine Blood Trace (Negative); Urine Ketones Trace mg/dL (Negative); Urine Protein Negative (Neg-Trace)
[2023-02-01 03:25] LABS: Bacteria Urine Trace (None Seen); Hyaline Casts Urine 0-2 /LPF (0-2); RBC Urine 0-2 /HPF (0-2); Squamous Epithelial Cell Urine >20 /HPF (0-2); WBC Urine 0-5 /HPF (0-5)
[2023-02-01 03:31] LABS: Amphetamine Screen Urine Not Detected (Not Detect); Barbiturates, Urine Not Detected (Not Detect); Benzodiazepines Screen Urine Not Detected (Not Detect); Cannabinoid Screen Urine Not Detected (Not Detect); Cocaine Screen Urine POSITIVE (Not Detect); Fentanyl, urine Not Detected (Not Detect); Opiate Screen Urine Not Detected (Not Detect); Phencyclidine Screen Urine Not Detected (Not Detect)
--- NOTE | 2023-02-01 05:41 | ED_ITS ---
HPI - General Adult General Chief complaint: General Medical Stated complaint: gen med Time Seen by Provider: 02/01/23 01:59 Source: patient Mode of arrival: ambulatory History of Present Illness HPI narrative: 47F reports anxiety and being off of medications and afraid to be home. She states being off of medications for 3 weeks. Related Data Home Medications Medication Instructions Recorded Confirmed clonazepam 0.5 mg tablet 0.5 mg PO BID PRN anxiety 02/01/23 02/01/23 clonazepam 0.5 mg tablet 0.5 mg PO BID PRN anxiety 02/01/23 02/01/23 clonidine HCl 0.1 mg tablet 0.1 mg PO BEDTIME 02/01/23 02/01/23 hydroxyzine HCl 25 mg tablet 25 - 50 mg PO DAILY PRN insomnia 02/01/23 02/01/23 risperidone 2 mg tablet 2 mg PO BID 02/01/23 02/01/23 trazodone 50 mg tablet 100 mg PO BEDTIME 02/01/23 02/01/23 Allergies Allergy/AdvReac Type Severity Reaction Status Date / Time No Known Allergies Allergy Verified 08/20/22 09:55 Review of Systems Review of Systems: Pertinent positives and negatives as stated in HPI PMFSH Past Medical History Source: nursing notes reviewed Medical History Anxiety Bipolar 1 disorder Primary osteoarthritis of knees, bilateral Surgical History History of repair of anterior cruciate ligament of left knee (~2009) Hx of arthroscopy of right knee Previous section Tubal ligation status Family History Family History Other Mental health disorder Substance use disorder Social History Social History Household Members Other:: BF Housing: Apartment Alcohol intake: current Patient Tobacco Use Status: Current everyday Tobacco user Cigarettes Per Day: 5 e-Cigarette/Vaping Use: Never Used Second Hand Smoke Exposure: No Use of substances other than those prescribed or required for medical reasons: Yes Substance Use Type: Crack/Cocaine Last Used Substance: Just Prior to Admission Advance Directives: No Advance Directives Information Provided: Yes Patient : No 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al status: employed 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 GENERAL: Well developed, well nourished, in no acute distress. HEAD: Normocephalic/atraumatic EYES: PERRLA, EOMI EARS: Ext canals without abnormality NOSE: Nares patent bilateral OROPHARYNX: no oral lesions noted, posterior pharynx clear NECK: Supple, no adenopathy LUNGS: Normal breath sounds. No adventitious sounds or accessory muscle use. SpO2<96> CARDIOVASCULAR: Regular rate and rhythm without noted murmurs ABDOMEN: Soft, non-tender, non-distended with bowel sounds. SKIN: Inspection of the skin reveals no rashes NEUROLOGIC: Alert and oriented x 4. Strength and sensation to light touch were grossly intact x 4, cranial nerves 2-12 are grossly intact. Medical Decision Making Medical Decision Making [facility] Narrative: 47-year-old female with history and clinical presentation consistent with bipolar 1 decompensation combined with a traumatic event history. I reviewed all investigations and hematologic indices are negative for leukocytosis and left shift, there is no anemia or thrombocytopenia. Chemistry and sees are negative for electrolyte or liver enzyme abnormalities and there is no RUDDY. Urinalysis is a contaminated septum all and does not demonstrate any UTI. Urine toxicology is significant for cocaine and alcohol. Patient is medically cleared for evaluation by the care team. Patient placed in physician observation because the patient needed more time for evaluation by the care team. 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 Please see the discussion above 02/01/23 02:43 02/01/23 02:43 Labs: Lab Results 02/01/23 02/01/23 02/01/23 Range/Units 02:43 02:43 02:43 WBC 9.2 (4.8-10.8) X10*3/uL RBC 4.32 (4.20-5.50) X10*6/uL Hgb 13.9 (12.0-16.0) g/dl Hct 40.5 (37.0-47.0) % MCV 93.8 (80.0-98.0) fL MCH 32.2 (27.0-33.0) pg MCHC 34.3 (31.0-35.0) g/dl RDW 12.6 (11.0-16.0) % Plt Count 335 (160-400) X10*3/uL MPV 9.0 L (9.4-12.3) fL Immature Gran % (Auto) 0.3 (0.0-0.4) % Neut % (Auto) 47.6 (45-73) % Lymph % (Auto) 42.6 H (20-40) % [place] % (Auto) 5.7 (2-11) % Eos % (Auto) 2.9 (0-4) % Baso % (Auto) 0.9 (0-2) % Lymph # (Auto) 3.9 (1.2-4.9) X10*3/uL [place] # (Auto) 0.5 (0.1-1.2) X10*3/uL Eos # (Auto) 0.3 (0.0-0.4) X10*3/uL Baso # (Auto) 0.1 (0.0-0.2) X10*3/uL Abs Immat Gran (auto) 0.03 (0.00-0.03) X10*3/uL Absolute Neuts (auto) 4.4 (2.0-8.3) x10*3/uL Absolute Nucleated RBC 0.000 (0.0-0.012) X10*3/uL Nucleated RBC % (auto) 0.0 (0.0-0.2) /100WBC Sodium 140 (135-145) mmol/L Potassium 3.4 (3.3-5.1) mmol/L Chloride 106 (96-108) mmol/L Carbon Dioxide 19 L (22-29) mmol/L Anion Gap 18 (12-20) BUN 10 (9-16) mg/dL Creatinine 0.80 (0.5-1.4) mg/dL Estim Creat Clear Calc 105.9 Estimated GFR > 60 Random Glucose 77 (60-115) mg/dL Calcium 10.1 D (8.4-10.2) mg/dL Total Bilirubin 1.0 (0.0-1.0) mg/dL Direct Bilirubin 0.3 (0.0-0.5) mg/dL AST 17 (5-31) U/L ALT 12 (0-31) U/L Alkaline Phosphatase 89 (39-117) U/L Total Protein 7.5 (6.5-8.0) g/dL Albumin 4.6 (3.5-5.0) g/dL Lipase 11 (8-78) U/L Beta HCG, Quant < 2 mIU/mL Urine Color Urine Appearance Urine pH (5.0-9.0) Ur Specific [place] (1.005-1.025) Urine Protein (Neg-Trace) mg/dL Urine Glucose (UA) (Negative) mg/dL Urine Ketones (Negative) mg/dL Urine Blood (Negative) Urine Nitrite (Negative) Ur Leukocyte Esterase (Negative) Urine RBC (0-2) /HPF Urine WBC (0-5) /HPF Ur Squamous Epith Cells (0-2) /HPF Urine Bacteria (None Seen) Hyaline Casts (0-2) /LPF Urine Test Urine Opiates Screen (Not Detect) Urine Fentanyl Screen (Not Detect) Ur Barbiturates Screen (Not Detect) Ur Phencyclidine Scrn (Not Detect) Ur Amphetamines Screen (Not Detect) U Benzodiazepines Scrn (Not Detect) Urine Cocaine Screen (Not Detect) U Marijuana (THC) Screen (Not Detect) Ethyl Alcohol mg/dL 02/01/23 02/01/23 02/01/23 Range/Units 02:43 03:12 03:12 WBC (4.8-10.8) X10*3/uL RBC (4.20-5.50) X10*6/uL Hgb (12.0-16.0) g/dl Hct (37.0-47.0) % MCV (80.0-98.0) fL MCH (27.0-33.0) pg MCHC (31.0-35.0) g/dl RDW (11.0-16.0) % Plt Count (160-400) X10*3/uL MPV (9.4-12.3) fL Immature Gran % (Auto) (0.0-0.4) % Neut % (Auto) (45-73) % Lymph % (Auto) (20-40) % [place] % (Auto) (2-11) % Eos % (Auto) (0-4) % Baso % (Auto) (0-2) % Lymph # (Auto) (1.2-4.9) X10*3/uL [place] # (Auto) (0.1-1.2) X10*3/uL Eos # (Auto) (0.0-0.4) X10*3/uL Baso # (Auto) (0.0-0.2) X10*3/uL Abs Immat Gran (auto) (0.00-0.03) X10*3/uL Absolute Neuts (auto) (2.0-8.3) x10*3/uL Absolute Nucleated RBC (0.0-0.012) X10*3/uL Nucleated RBC % (auto) (0.0-0.2) /100WBC Sodium (135-145) mmol/L Potassium (3.3-5.1) mmol/L Chloride (96-108) mmol/L Carbon Dioxide (22-29) mmol/L Anion Gap (12-20) BUN (9-16) mg/dL Creatinine (0.5-1.4) mg/dL Estim Creat Clear Calc Estimated GFR Random Glucose (60-115) mg/dL Calcium (8.4-10.2) mg/dL Total Bilirubin (0.0-1.0) mg/dL Direct Bilirubin (0.0-0.5) mg/dL AST (5-31) U/L ALT (0-31) U/L Alkaline Phosphatase (39-117) U/L Total Protein (6.5-8.0) g/dL Albumin (3.5-5.0) g/dL Lipase (8-78) U/L Beta HCG, Quant mIU/mL Urine Color Yellow Urine Appearance Cloudy Urine pH 5.5 (5.0-9.0) Ur Specific [place] <= 1.005 (1.005-1.025) Urine Protein Negative (Neg-Trace) mg/dL Urine Glucose (UA) Negative (Negative) mg/dL Urine Ketones Trace (Negative) mg/dL Urine Blood Trace H (Negative) Urine Nitrite Negative (Negative) Ur Leukocyte Esterase Trace H (Negative) Urine RBC 0-2 (0-2) /HPF Urine WBC 0-5 (0-5) /HPF Ur Squamous Epith Cells >20 (0-2) /HPF Urine Bacteria Trace (None Seen) Hyaline Casts 0-2 (0-2) /LPF Urine Test Urine Opiates Screen Not Detected (Not Detect) Urine Fentanyl Screen Not Detected (Not Detect) Ur Barbiturates Screen Not Detected (Not Detect) Ur Phencyclidine Scrn Not Detected (Not Detect) Ur Amphetamines Screen Not Detected (Not Detect) U Benzodiazepines Scrn Not Detected (Not Detect) Urine Cocaine Screen POSITIVE H (Not Detect) U Marijuana (THC) Screen Not Detected (Not Detect) Ethyl Alcohol 135 mg/dL 02/01/23 Range/Units 03:12 WBC (4.8-10.8) X10*3/uL RBC (4.20-5.50) X10*6/uL Hgb (12.0-16.0) g/dl Hct (37.0-47.0) % MCV (80.0-98.0) fL MCH (27.0-33.0) pg MCHC (31.0-35.0) g/dl RDW (11.0-16.0) % Plt Count (160-400) X10*3/uL MPV (9.4-12.3) fL Immature Gran % (Auto) (0.0-0.4) % Neut % (Auto) (45-73) % Lymph % (Auto) (20-40) % [place] % (Auto) (2-11) % Eos % (Auto) (0-4) % Baso % (Auto) (0-2) % Lymph # (Auto) (1.2-4.9) X10*3/uL [place] # (Auto) (0.1-1.2) X10*3/uL Eos # (Auto) (0.0-0.4) X10*3/uL Baso # (Auto) (0.0-0.2) X10*3/uL Abs Immat Gran (auto) (0.00-0.03) X10*3/uL Absolute Neuts (auto) (2.0-8.3) x10*3/uL Absolute Nucleated RBC (0.0-0.012) X10*3/uL Nucleated RBC % (auto) (0.0-0.2) /100WBC Sodium (135-145) mmol/L Potassium (3.3-5.1) mmol/L Chloride (96-108) mmol/L Carbon Dioxide (22-29) mmol/L Anion Gap (12-20) BUN (9-16) mg/dL Creatinine (0.5-1.4) mg/dL Estim Creat Clear Calc Estimated GFR Random Glucose (60-115) mg/dL Calcium (8.4-10.2) mg/dL Total Bilirubin (0.0-1.0) mg/dL Direct Bilirubin (0.0-0.5) mg/dL AST (5-31) U/L ALT (0-31) U/L Alkaline Phosphatase (39-117) U/L Total Protein (6.5-8.0) g/dL Albumin (3.5-5.0) g/dL Lipase (8-78) U/L Beta HCG, Quant mIU/mL Urine Color Urine Appearance Urine pH (5.0-9.0) Ur Specific [place] (1.005-1.025) Urine Protein (Neg-Trace) mg/dL Urine Glucose (UA) (Negative) mg/dL Urine Ketones (Negative) mg/dL Urine Blood (Negative) Urine Nitrite (Negative) Ur Leukocyte Esterase (Negative) Urine RBC (0-2) /HPF Urine WBC (0-5) /HPF Ur Squamous Epith Cells (0-2) /HPF Urine Bacteria (None Seen) Hyaline Casts (0-2) /LPF Urine Test Cancelled Urine Opiates Screen (Not Detect) Urine Fentanyl Screen (Not Detect) Ur Barbiturates Screen (Not Detect) Ur Phencyclidine Scrn (Not Detect) Ur Amphetamines Screen (Not Detect) U Benzodiazepines Scrn (Not Detect) Urine Cocaine Screen (Not Detect) U Marijuana (THC) Screen (Not Detect) Ethyl Alcohol mg/dL External Record Review External record reviewed: Outpatient record, Prior outpatient labs and Prior outpatient radiology Critical Care Time Critical Care Time Critical Care Time: Yes Total Critical Care Time: 30 Attestation: I personally attest to this time spent taking care of the patient. Discharge Plan Discharge Clinical Impression: Bipolar 1 disorder, Disorganized behavior, Paranoid Patient Disposition: Still a Patient Prescriptions: No Action clonidine HCl 0.1 mg tablet 0.1 mg PO BEDTIME trazodone 50 mg tablet 100 mg PO BEDTIME clonazepam 0.5 mg tablet 0.5 mg PO BID PRN (Reason: anxiety) clonazepam 0.5 mg tablet 0.5 mg PO BID PRN (Reason: anxiety) risperidone 2 mg tablet 2 mg PO BID hydroxyzine HCl 25 mg tablet 25 - 50 mg PO DAILY PRN (Reason: insomnia)
--- NOTE | 2023-02-01 07:16 | PC.NURSE ---
Resumed care of patient, she is currently restless walking around the unit, Phone requested to make calls. Pt currently on the phone, awaiting careteam consult at this time. Q15 minute checks maintained
--- NOTE | 2023-02-01 08:33 | PC.NURSE ---
Patient refusing to use bathroom this morning stating it was too dirty, this staff member cleaned toilets, and also called house keeping to come clean bathroom. Patient then wanted to shower, supplies given to patient, pt then came out and said the shower was wet and not clean and that she didn't want to anymore. five minutes later pt is currently in shower at this time.
[2023-02-01] MEDS: risperiDONE 2 MG TABLET PO ×2 (08:57→20:06)
[2023-02-01 14:14] VITALS: BP 133/76; PULSE 96; RESP 16; TEMP 36.6; O2SAT 98
--- NOTE | 2023-02-01 15:11 | PC.NURSE ---
assumed care of patient at 1500, patient resting in room, respirations even and unlabored, no apparent distress. Per previous nurse, patient has erratic behavior that is inconsistent. Pt has been calm and cooperative with this RN thus far
--- NOTE | 2023-02-01 15:29 | MHC.CARE ---
Angelica [phone]
[2023-02-01] MEDS: traZODone HCL 100 MG TABLET PO (20:06)
[2023-02-01] MEDS: cloNIDine HCL 0.1 MG TABLET PO (20:06)
[2023-02-01 20:09] VITALS: BP 136/76; PULSE 86; RESP 20; TEMP 36.2; O2SAT 99
--- NOTE | 2023-02-02 06:08 | PC.NURSE ---
Patient slept through the night, no distress observed/reported, behavior non concerning, medication compliant, disposition per care team is section 12 inpatient bed search, however disposition may change after M.S.U, VSS, labs completed/resulted, will continue to monitor.
[2023-02-02 06:48] VITALS: BP 129/89; PULSE 97; RESP 16; TEMP 36.6; O2SAT 98
--- NOTE | 2023-02-02 07:30 | PC.NURSE ---
Assumed care of pt at 0700. Patient resting in room quietly. No apparent distress.
[2023-02-02 07:40] LABS: COVID-19 Test Negative (Negative); IDNOW Serial# BCCEAD1C
--- NOTE | 2023-02-02 07:54 | ECG_ITS ---
Test Reason : substance abuse Blood Pressure : / mmHG Vent. Rate : 073 BPM Atrial Rate : 073 BPM P-R Int : 146 ms QRS Dur : 088 ms QT Int : 406 ms P-R-T Axes : 050 040 023 degrees QTc Int : 447 ms Normal sinus rhythm Normal ECG When compared with ECG of 30-JAN-2017 10:31, No significant change was found Referred By: Chelo Gibson Electronically Signed By:NAKITA OLVERA
[2023-02-02] MEDS: risperiDONE 2 MG TABLET PO (08:30)
--- NOTE | 2023-02-02 15:35 | PC.NURSE ---
cardiology called wanting the ekg order to be placed for this patient as one had been done and cardiology cant read the report without the order, this nurse spoke with dr. ospina who asked who the provider was at the time pt was here as the provider would have placed the order, provider was dr. red labs were also drawn for medical clearance. the time of the EKG that was performed was 0754 per cardiology.
== END 2023-02-02 09:57 | disposition home or self-care (01) ==
PROVIDERS: Emergency Provider Student in an Organized Health Care Education/Training Program
DX: F31.9 Bipolar disorder, unspecified (principal); F60.0 Paranoid personality disorder; F41.9 Anxiety disorder, unspecified; F14.10 Cocaine abuse, uncomplicated; F17.210 Nicotine dependence, cigarettes, uncomplicated; Z20.822 Contact with and (suspected) exposure to COVID-19; Z20.828 Contact with and (suspected) exposure to other viral communicable diseases; Z71.6 Tobacco abuse counseling; Z79.899 Other long term (current) drug therapy
CPT/HCPCS: 36415; 80053; 80307; 81001; 82248; 83690; 84702; 85025; 87635; 93005; 99285; S9485

== ENCOUNTER 2023-03-17 10:24 | Outpatient (AMB) | payer OTHER, SELFPAY ==
[2023-03-17 10:50] VITALS: BP 126/80; BMI 39.9
--- NOTE | 2023-03-17 10:50 | MHC.OFFVIS ---
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 Intake Note: Last year cycles having been irregular with timing and amount of days Allergies No Known Allergies Allergy (Verified 03/17/23 10:54) Medication List - Last Reconciled 03/17/23 by Gabbie Joyce CNM clonazepam 0.5 mg PO BID PRN clonidine HCl 0.1 mg PO BEDTIME hydroxyzine HCl 25 - 50 mg PO DAILY PRN risperidone 2 mg PO BID trazodone 100 mg PO BEDTIME Is last menstrual period known: Yes Last menstrual period: 03/08/23 HPI 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 She is not having any special concerns but she is worried that she might have a vaginal bacterial infection because she has got a lot of itching and it reminds her of how it felt when she had it before. She usually uses Jergens lotion but did not use any today and she showers with Coast soap.. She had her tubes tied and she lives with her boyfriend but he is on the road a lot as a bank consultant. She has noticed that her periods are starting to skip every now and then.. [facility] Medical History Anxiety Bipolar 1 disorder Primary osteoarthritis of knees, bilateral Surgical History Hx of arthroscopy of right knee Tubal ligation status Previous section History of repair of anterior cruciate ligament of left knee (~2009) Family History Other Mental health disorder Substance use disorder Social History Household Members Other:: BF Housing: Apartment Alcohol intake: current Patient Tobacco Use Status: Current everyday Tobacco user Cigarettes Per Day: 5 e-Cigarette/Vaping Use: Never Used Second Hand Smoke Exposure: No Substance Use Type: Crack/Cocaine 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al status: employed 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[employer], rt hand Cognitive needs: No Hearing needs: No Vision needs: No Female Reproductive History Menstrual Date of last menstrual period: 03/08/23 Total pregnancies: 5 Number of Living Children: 5 Date of last pap smear: 06/30/21 (WNL) Physical Exam Vital Signs: Last Vital Signs BP 126/80 03/17/23 10:50 BMI result Body Mass Index 39.9 Const General: healthy appearing, comfortable, no acute distress, well developed and alert Nutritional Appearance: average body habitus Orientation/consciousness: patient oriented x3 Limitations: no limitations HEENT Head: Yes normocephalic Neck Neck: Yes normal visual inspection Chest Chest palpation & inspection: normal inspection of the chest Breast/axilla inspection: normal inspection of the breasts and normal inspection of the axillae Breast/axilla palpation: normal palpation of the breasts and normal palpation of the axillae Resp Effort & Inspection: normal respiratory effort GI Inspection: Yes normal to inspection, No Abdominal wall edema and No distended Palpation (GI): Soft to palpation and nontender Other: No exudate. Cervix is extremely anterior. Uterus is somewhat difficult to feel but nontender good tone with Kegel External exam within normal limits no abnormal discharge appreciated is vulva vagina cervix pink Cervix is extremely anterior. Uterus is somewhat difficult to feel but nontender good tone with Kegel General: Yes bladder normal to palpation External Female Exam: normal external appearance and normal appearance of the urethra Speculum Exam - Vagina: normal appearance of the vagina, normal palpation and normal vaginal discharge Speculum Exam - Cervix: normal appearance of the cervix, normal palpation and nontender Bimanual exam- vagina & uterus: normal bimanual exam, normal palpation, uterine size normal, bladder normal to palpation, consistency normal, normal palpation, uterine mobility normal, uterine shape normal, No Cervical tenderness present, non-tender and no cervical motion tenderness Bimanual Exam- Adnexa, other: normal adnexae, no masses, normal and No adnexal tenderness Neuro General: patient oriented x3 Assessment & Plan Assessment & Plan (1) Vaginal itching: Comment: Patient feels it is like when she had BV will Rx with Metrogel awaiting testing. Code(s): N89.8 - Other specified noninflammatory disorders of vagina (2) Cervical cancer screening: Comment: 06/12/21 pap= neg, neg hpv Code(s): Z12.4 - Encounter for screening for malignant neoplasm of cervix (3) Potential exposure to STD: Code(s): Z20.2 - Contact with and (suspected) exposure to infections with a predominantly sexual mode of transmission Plan -----Discussed in this visit the following: healthy balanced diet, regular and consistent exercise, getting recommended health screens, doing the best she can for her particular health concerns, kegel exercises, pap smear screening and followup recommendations, mammography screening and SBE, normal changes in cycles in her life stage--- Discussed that it is normal to start skipping periods periodically in the cortez menopausal years. . Patient just had her mammogram. Encouraged her not to allow herself to gain the weight back since she lost it under such painful circumstances grieving the of her daughter. She gets her mental health needs met with [facility] and her primary care needs met with [facility]. I discussed with her that while she was given Flagyl in the past for BV because her vagina and discharge appears so normal at this point I would be reluctant to treat with such as strong medication unless the testing reveals that it is absolutely necessary I am willing to give her a prescription for Metrogel which she really would like to have today because of her vaginal itching. I also discussed trying to just use plain water in the shower and not allow the [place] soap to dry out her vagina so much also recommend using her moisture lotion what ever she chooses every day especially this time of year. Will prescribe Metrogel x1. Patient declined blood work for STIs but will send testing for gonorrhea chlamydia trichomoniasis Gardnerella and Diana. Patient feels very sure it is not a yeast infection.. Medications: New metronidazole 0.75%(37.5mg/5gram) 1 appful vaginal BEDTIME 70 grams 0RF 5 days Coding Level of Care Code Est Pt Prev Care 40-64y(93228) Diagnoses Vaginal itching N89.8 Cervical cancer screening Z12.4 Potential exposure to STD Z20.2
== END 2023-03-17 11:55 | disposition home or self-care (01) ==
PROVIDERS: PCP Nurse Practitioner Family; Visit Provider Advanced Practice Midwife
DX: Z01.419 Encounter for gynecological examination (general) (routine) without abnormal findings (principal); N89.8 Other specified noninflammatory disorders of vagina; Z20.2 Contact with and (suspected) exposure to infections with a predominantly sexual mode of transmission
CPT/HCPCS: 99396

== ENCOUNTER 2023-03-17 10:24 | Outpatient (REF) | payer OTHER, SELFPAY ==
[2023-03-17 17:20] LABS: CT PCR NOT DETECTED (Not Detect.); NG PCR NOT DETECTED (Not Detect.)
[2023-03-18 13:48] LABS: BV Int Neg Control Negative (Negative); BV Int Pos Control Positive (Positive)
== END 2023-03-17 10:25 | disposition home or self-care (01) ==
LOC: HO.LNP 10:24
PROVIDERS: PCP Nurse Practitioner Family; Visit Provider Advanced Practice Midwife
DX: N89.8 Other specified noninflammatory disorders of vagina (principal); Z12.4 Encounter for screening for malignant neoplasm of cervix; Z20.2 Contact with and (suspected) exposure to infections with a predominantly sexual mode of transmission
CPT/HCPCS: 0353U; 87480; 87510; 87660; 99396

== ENCOUNTER 2023-04-30 11:10 | Emergency (ER) | payer OTHER, SELFPAY ==
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
[2023-04-30 12:05] VITALS: BP 118/59; PULSE 87; RESP 14; TEMP 36.4; O2SAT 99; BMI 42.0
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
[2023-04-30] MEDS: Ketorolac Tromethamine 30 MG/ML VIAL IM (13:08)
== END 2023-04-30 14:49 | disposition home or self-care (01) ==
PROVIDERS: Emergency Provider Emergency Medicine Emergency Medical Services; PCP Nurse Practitioner Family
DX: S89.92XA Unspecified injury of left lower leg, initial encounter (principal); S49.91XA Unspecified injury of right shoulder and upper arm, initial encounter; M25.511 Pain in right shoulder; M25.562 Pain in left knee; M54.2 Cervicalgia; R51.9 Headache, unspecified; V43.52XA Car driver injured in collision with other type car in traffic accident, initial encounter; Y93.9 Activity, unspecified; Y92.410 Unspecified street and highway as the place of occurrence of the external cause; Y99.9 Unspecified external cause status; Z79.899 Other long term (current) drug therapy; F17.210 Nicotine dependence, cigarettes, uncomplicated; Z71.6 Tobacco abuse counseling
CPT/HCPCS: 72040; 73030; 73564; 96372; 99284; J1885

== ENCOUNTER 2023-05-23 12:47 | Emergency (ER) | payer OTHER, SELFPAY ==
[2023-05-23 13:07] VITALS: BP 122/68; PULSE 79; RESP 18; TEMP 37.3; O2SAT 99; BMI 42.4
--- NOTE | 2023-05-23 13:07 | ED_ITS ---
HPI - Female Genitourinary General Chief complaint: General Medical Stated complaint: Vaginal Itch Pain on Urination Time Seen by Provider: 05/23/23 13:47 Source: patient Mode of arrival: ambulatory Limitations: no limitations History of Present Illness HPI Narrative: 47 year old female with pmhx significant for anxiety, bipolar 1 disorder, and osteoarthritis presents to the ED today for evaluation of vaginal itching and urinary frequency x2 days. Admits to itching of the external genitalia. Reports associated vaginal discharge that seems more wet than usual. Reports history of yeast infections and states that this feels similar. Reports being sexually active with her partner however admits to intercourse with a new partner. She would like to be tested for STIs. Denies chance of . Denies fever, chills, abdominal pain, flank pain, dysuria, hematuria, vaginal bleeding. Related Data Home Medications Medication Instructions Recorded Confirmed clonazepam 0.5 mg tablet 0.5 mg PO BID PRN anxiety 02/01/23 03/17/23 clonidine HCl 0.1 mg tablet 0.1 mg PO BEDTIME 02/01/23 03/17/23 hydroxyzine HCl 25 mg tablet 25 - 50 mg PO DAILY PRN insomnia 02/01/23 03/17/23 risperidone 2 mg tablet 2 mg PO BID 02/01/23 03/17/23 trazodone 50 mg tablet 100 mg PO BEDTIME 02/01/23 03/17/23 Previous Rx's Medication Instructions Recorded metronidazole 0.75 % (37.5 mg/5 1 appful vaginal BEDTIME 5 days 03/17/23 gram) vaginal gel #70 grams fluconazole 150 mg tablet 150 mg PO ONCE 2 days #2 tabs 03/19/23 metronidazole 500 mg tablet 500 mg PO BID 7 days #14 tabs 03/19/23 acetaminophen 500 mg tablet 500 mg PO Q6H PRN fever or pain 04/30/23 (Tylenol Extra Strength) #14 tabs cyclobenzaprine 5 mg tablet 5 mg PO Q8H PRN pain (scale score 04/30/23 7-10) 5 days #14 tabs lidocaine 5 % topical patch 1 patch topical DAILY PRN pain #30 04/30/23 (Lidoderm) ea naproxen 500 mg tablet 500 mg PO BID PRN pain 10 days #20 04/30/23 tabs doxycycline hyclate 100 mg capsule 100 mg PO BID 7 days #14 caps 05/23/23 fluconazole 150 mg tablet 150 mg PO Q3D 2 doses #2 tabs 05/23/23 metronidazole 500 mg tablet 500 mg PO BID 7 days #14 tabs 05/23/23 Allergies Allergy/AdvReac Type Severity Reaction Status Date / Time No Known Allergies Allergy Verified 04/30/23 12:04 Review of Systems Review of Systems: Constitutional: No fever, chills, fatigue, night sweats, weight changes ENT/Mouth: No ear pain, hearing loss, nasal congestion, sinus pain, rhinorrhea, sore throat Eyes: No eye pain, swelling, redness, vision changes, discharge Cardio: No chest pain, palpitations, MILLER, orthopnea, peripheral edema Pulm: No SOB, cough, sputum, wheezing, dyspnea, hemoptysis GI: No nausea, vomiting, hematemesis, abdominal pain, diarrhea, constipation, hematochezia, melena : No irregular bleeding, dysuria, frequency, urgency, hesitancy, hematuria, flank pain, urinary flow changes, +vaginal itching, discharge MSK: No back pain, neck pain, joint pain, myalgias Skin: No lesions, rashes Neuro: No weakness, numbness, paresthesias, LOC, dizziness, headache All other systems reviewed and are negative. [facility] Past Medical History Attestation statement: The following information was validated with the patient. Source: old records reviewed and nursing notes reviewed Medical History Bipolar 1 disorder Anxiety Primary osteoarthritis of knees, bilateral Surgical History Hx of arthroscopy of right knee Tubal ligation status Previous section History of repair of anterior cruciate ligament of left knee (~2009) Family History Family History Other Mental health disorder Substance use disorder Social History Social History Household Members Other:: BF Housing: Apartment Alcohol intake: current Alcohol intake frequency: 0-2 drinks per day Alcohol type: beer Patient Tobacco Use Status: Current everyday Tobacco user Cigarettes Per Day: 5 e-Cigarette/Vaping Use: Never Used Second Hand Smoke Exposure: No Substance Use Type: Crack/Cocaine Advance Directives: No Advance Directives Information Provided: No Patient : No 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al status: employed 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[employer], 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 Cognitive needs: No Hearing needs: No Vision needs: No Physical Exam Vital Signs: Vital Signs: Last Vital Signs Temp 99.1 F 05/23/23 13:07 Pulse 79 05/23/23 13:07 Resp 18 05/23/23 13:07 BP 122/68 05/23/23 13:07 Pulse Ox 99 05/23/23 13:07 O2 Del Method Room Air 05/23/23 13:07 BMI result Body Mass Index 42.4 vital signs stable, afebrile Const: General: cooperative, healthy appearing, comfortable, no acute distress, alert and awake Orientation/consciousness: patient oriented x3 Limitations: no limitations Eyes: General: appearance normal, both eyes and all related structures Resp: Effort & Inspection: normal respiratory effort Auscultation: clear to auscultation bilaterally Cardio: Rate: regular rate Rhythm: regular rhythm GI: Other: + abdomen soft, nondistended, nontender to palpation, no rebound tenderness or guarding. Normoactive bowel sounds x4. Bladder not palpable. Inspection: Yes normal to inspection : Other: Sensitive exam performed with Maurisio Soto present in room to pathology laboratory director. External genitalia is normal in appearance without lesions, swelling, masses or tenderness. Vaginal canal is pink and moist without lesions. There is a white curd-like discharge noted in the vaginal canal. Cervix is non-tender without lesions or erosions. Uterus is anteflexed, non-tender and normal in size. Ovaries are non-tender without palpable masses or enlargement. No cervical motion tenderness on bimanual exam. General: Yes no CVA tenderness Back/Spine/Pelvis: Back: no CVA tenderness Skin: General skin exam: no rashes or lesions noted Neuro: General: patient oriented x3, gait normal and moves all extremities Extrem: General: Yes normal to inspection Course Course Course Narrative: This is an RME: Additional HPI, ROS, PE not included below will be deferred to primary provider. Patient is a 47-year-old female seen emergency department for evaluation of urinary frequency, vaginal itching/burning, endorses positive drainage. Denies pain, bleeding, concern for STI. Hx of BV, STI, yeast infection. Plan: CT/NG, U/A, BV panel Reevaluation(s) Reevaluation #1: Patient's pelvic exam consistent with yeast infection. Urine is negative for infection and . Awaiting STD panel and will call with positive results. Patient states that she would like to be treated prophylactically today. Will give 1 dose of ceftriaxone and send doxy and Flagyl to pharmacy. Will also send fluconazole to pharmacy for suspected candidal vaginal infection. Informed patient to abstain from intercourse until antibiotics are completed. Informed her to have all sexual partners tested for STDs as well. Patient has remained stable throughout ED visit today. Discussed strict return precautions. All questions answered at this time. Patient is agreeable with disposition and stable for discharge. Medications Administered Discontinued Medications Generic Name Dose Route Start Last Admin Trade Name Freq PRN Reason Stop Dose Admin Ceftriaxone Sodium 500 mg/ 0 mg 05/23/23 15:13 05/23/23 15:48 Lidocaine HCl 1 ml IM 05/23/23 15:14 500 kit ONCE ONE Administration Medical Decision Making Medical Decision Making [facility] Narrative: 47 year old female with pmhx significant for anxiety, bipolar 1 disorder, and osteoarthritis presents to the ED today for evaluation of vaginal itching and urinary frequency x2 days. Vital signs stable. Afebrile. Patient nontoxic appearing and in no acute distress. External genitalia is normal in appearance without lesions, swelling, masses or tenderness. Vaginal canal is pink and moist without lesions. There is a white curd-like discharge noted in the vaginal canal. Cervix is non-tender without lesions or erosions. Uterus is anteflexed, non-tender and normal in size. Ovaries are non-tender without palpable masses or enlargement. No cervical motion tenderness on bimanual exam. Clinical concern for UTI, sexually transmitted infection, candidal infection. Unlikely bartholins cyst, herpes, syphillis, abscess. Plan for UA, STD panel, and re-evaluation. Differential Diagnosis Differential Diagnoses: The differential diagnosis associated with the presentation includes as above. Admission/Observation not indicated. Lab Data [facility] Lab Attestation statement: I reviewed the patient's lab results. as above. Labs: Lab Results 05/23/23 Range/Units 13:28 Urine Color Yellow Urine Appearance Clear Urine pH 6.5 (5.0-9.0) Ur Specific [place] >= 1.030 H (1.005-1.025) Urine Protein Negative (Neg-Trace) mg/dL Urine Glucose (UA) Negative (Negative) mg/dL Urine Ketones Trace (Negative) mg/dL Urine Blood Negative (Negative) Urine Nitrite Negative (Negative) Ur Leukocyte Esterase Trace H (Negative) Urine RBC 3-5 H (0-2) /HPF Urine WBC 0-5 (0-5) /HPF Ur Squamous Epith Cells 3-5 (0-2) /HPF Urine Bacteria None Seen (None Seen) Hyaline Casts 0-2 (0-2) /LPF Urine Test NEGATIVE (NEGATIVE) Chlam trachomat DNA PCR NOT DETECTED (Not Detect.) N.gonorrhoeae DNA (PCR) NOT DETECTED (Not Detect.) External Record Review External record reviewed: Inpatient record Prescription Management I considered prescription management with: Antibiotic and Other (antifungal) Social Determinants Patient?s care significantly limited by Social Determinants of Health including: Other Social Determinant of Health Critical Care Time Critical Care Time Critical Care Time: No Discharge Plan Discharge Clinical Impression: Candidiasis of vagina Patient Disposition: Home, Self-Care Instructions: Sexually Transmitted Diseases (ED), Yeast Infection (ED) Additional Instructions: Your urine was negative for infection or . Were pelvic exam was consistent with a yeast infection. Fluconazole is an antifungal that has been sent to your pharmacy. Take 1 dose today. If symptoms do not improve, take the 2nd dose in 72 hours. You were also tested for STIs today and will be treated prophylactically. You received a dose of ceftriaxone in the ED. Doxycycline is another antibiotic that has been sent to your pharmacy. Take this twice daily for the next 7 days to treat for chlamydia. Metronidazole as adding antibiotic that has been sent to your pharmacy. Take this twice daily for the next 7 days to treat for Trichomonas, bacterial vaginosis. Take antibiotics to completion. Do not skip any doses or finish these early as the infection may come back or worsen. You will be called with any positive results. Please follow-up with your senior back end java developer. If your symptoms persist or worsen please return to the emergency department. In the case of an emergency call 911. Prescriptions: New fluconazole 150 mg tablet 150 mg PO Q3D Qty: 2 0RF doxycycline hyclate 100 mg capsule 100 mg PO BID 7 Days Qty: 14 0RF metronidazole 500 mg tablet 500 mg PO BID 7 Days Qty: 14 0RF No Action metronidazole 500 mg tablet 500 mg PO BID 7 Days Qty: 14 0RF fluconazole 150 mg tablet 150 mg PO ONCE 2 Days Qty: 2 0RF Rx Instructions: Take one pill on day 3 of treatment and repeat on day 7 if symptomatic for yeast infection clonidine HCl 0.1 mg tablet 0.1 mg PO BEDTIME trazodone 50 mg tablet 100 mg PO BEDTIME clonazepam 0.5 mg tablet 0.5 mg PO BID PRN (Reason: anxiety) risperidone 2 mg tablet 2 mg PO BID hydroxyzine HCl 25 mg tablet 25 - 50 mg PO DAILY PRN (Reason: insomnia) acetaminophen [Tylenol Extra Strength] 500 mg tablet 500 mg PO Q6H PRN (Reason: fever or pain) Qty: 14 0RF lidocaine [Lidoderm] 5 % adhesive patch,medicated 1 patch topical DAILY MDD remove after 12 hours PRN (Reason: pain) Qty: 30 0RF Rx Instructions: leave on most painful area for up to 12 hrs naproxen 500 mg tablet 500 mg PO BID PRN (Reason: pain) 10 Days Qty: 20 0RF cyclobenzaprine 5 mg tablet 5 mg PO Q8H PRN (Reason: pain (scale score 7-10)) 5 Days Qty: 14 0RF metronidazole 0.75 % (37.5mg/5 gram) gel 1 appful vaginal BEDTIME 5 Days Qty: 70 0RF Referrals: [facility] [place] [facility] [place]Provider Group] Discharge Date/Time: 05/23/23 15:55
[2023-05-23 13:36] LABS: Appearance Urine Clear; Color Urine Yellow; Glucose Urine UA Negative (Negative); Leukocyte Esterase Urine Trace (Negative); Nitrite Urine Negative (Negative); PH 6.5 (5.0-9.0); Specific Gravity - Urine >= 1.030 (1.005-1.025); UMIC TRIGGER UACC YES; Urine Blood Negative (Negative); Urine Ketones Trace mg/dL (Negative); Urine Protein Negative (Neg-Trace)
[2023-05-23 13:38] LABS: Bacteria Urine None Seen (None Seen); Hyaline Casts Urine 0-2 /LPF (0-2); WBC Urine 0-5 /HPF (0-5)
[2023-05-23 13:40] LABS: UPreg QC Valid YES; Urine Pregnancy NEGATIVE (NEGATIVE)
[2023-05-23] MEDS: cefTRIAXone sodium 500 MG, Lidocaine HCl 1 % MPF 1 ML IM (15:48)
[2023-05-23 15:50] LABS: CT PCR NOT DETECTED (Not Detect.); NG PCR NOT DETECTED (Not Detect.)
[2023-05-24 15:13] LABS: BV Int Neg Control Negative (Negative); BV Int Pos Control Positive (Positive)
== END 2023-05-23 15:55 | disposition home or self-care (01) ==
PROVIDERS: Nurse Practitioner Family; Emergency Provider Student in an Organized Health Care Education/Training Program; PCP Nurse Practitioner Family
DX: B37.31 Acute candidiasis of vulva and vagina (principal)
CPT/HCPCS: 0353U; 81001; 81025; 87480; 87510; 87660; 96372; 99283; 99284; J0696

== ENCOUNTER 2023-08-26 07:54 | Outpatient (AMB) | payer OTHER, SELFPAY ==
--- NOTE | 2023-08-26 08:03 | MHC.PC.OV ---
Vital Signs 08/26/23 08:04 Height 5 ft 4 in Weight 261 lb BMI 44.8 BP 124/66 Blood Pressure Location Lt brachial Position Sitting Pulse 78 Pulse Source Pulse Oximeter Pulse Oximetry (%) 98 Oxygen Delivery Method Room Air Intake Visit Reasons: Annual PE Intake Note: pt is here for annual exam Pediatric Dermatologist Required: No Allergies No Known Allergies Allergy (Verified 08/26/23 08:24) Medication List - Last Reconciled 08/26/23 by RENA Beal No Known Home Meds Tobacco use date assessed: 08/26/23 Dental Screening Dental Screen Date: 08/26/23 Did you have a dental visit in the last 12 months?: Yes Did you have a dental problem in the last 6 months where you did not have access to dental care?: No Was dental information given to patient?: Patient has dentist HPI Annual PE HPI Details Pt is here for a PE. Will order labs. Colon screen is scheduled. Mammo is up to date. Has a anesthesiology physician. Pt has a therapist, is on the waiting list for a psychiatrist, denies any SI ro HI [facility] Medical History Bipolar 1 disorder Anxiety Primary osteoarthritis of knees, bilateral Surgical History Hx of arthroscopy of right knee Tubal ligation status Previous section History of repair of anterior cruciate ligament of left knee (~2009) Family History Other Mental health disorder Substance use disorder Social History Household Members Other:: BF Housing: Apartment Alcohol intake: current Alcohol intake frequency: 0-2 drinks per day Alcohol type: beer Patient Tobacco Use Status: Current everyday Tobacco user Cigarettes Per Day: 5 e-Cigarette/Vaping Use: Never Used Second Hand Smoke Exposure: No Substance Use Type: Crack/Cocaine 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al status: employed 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 1. Little interest or pleasure in doing things: more than half the days 2. Feeling down, depressed, or hopeless: several days 3. Trouble falling or staying asleep, or sleeping too much: nearly every day 4. Feeling tired or having little energy: nearly every day 5. Poor appetite or overeating: nearly every day 6. Feeling bad about yourself - or that you are a failure or have let yourself or your family down: several days 7. Trouble concentrating on things, such as reading the newspaper or watching television: several days 8. Moving or speaking so slowly that other people could have noticed. Or the opposite - being so fidgety or restless that you have been moving around a lot more than usual: not at all 9. Thoughts that you would be better off or of hurting yourself in some way: not at all Total score: 14 Depression Screening Interpretation: Positive (waiting list for psychiatry, denies any SI or HI) Depression Screening Follow-up: Existing condition and In treatment Depression Screening Done: Yes 22130 - PHQ-9 Billing: Yes Source: Developed by Drs. Felix Méndez, Aggie Ibarra, Zach Escalante and colleagues, with an educational naomi from [employer]. Thrive Questionnaire Date Thrive assessed: 08/26/23 I am a: Patient What is your living situation today?: I have a steady place to live Within the past 12 months, did the food you bought not last and you didn't have the money to get more?: Never true Within the past 12 months, did you worry whether your food would run out before you got money to buy more?: Never true Do you have trouble paying for medicines?: No Do you have trouble getting transportation to medical appointments?: No Do you have trouble paying your heating and electricity bill?: No Do you have trouble taking care of your child, family member or friend?: No Do you have trouble with day-to-day activities such as bathing, preparing meals, shopping, managing finances, etc.?: No Are you currently unemployed and looking for a job?: No Are you interested in more education?: No Please select the resources that you would like help with: None Currently or been in a relationship where the following occur: no concerns reported THRIVE Score: 0 AUDIT C Alcohol Use Questionnaire (AUDIT-C) 1. How often do you have a drink containing alcohol?: 2-4 times a month 2. How many drinks containing alcohol do you have on a typical day when you are drinking?: 3 or 4 3. How often do you have six or more drinks on one occasion?: Never Total Score: 3 Score Reviewed/Action Taken: Yes BETTE-7 AMB Questionnaire BETTE-7 Date BETTE - 7 assessed: 08/26/23 Feeling nervous, anxious, or on edge: 3 = Nearly every day Not being able to stop or control worryin = Nearly every day Worrying too much about different things: 3 = Nearly every day Trouble relaxin = More than half the days Being so restless that it is hard to sit still: 1 = Several days Becoming easily annoyed or irritable: 1 = Several days Feeling afraid as if something awful might happen: 2 = More than half the days Total BETTE-7 score (0-4 normal; 5-9 mild; 10-14 moderate; 15-21 severe): 15 Source: Developed by Drs. Felix Méndez, Aggie Ibarra, Zach Escalante and colleagues, with an educational naomi from [employer]. BETTE-7 Assessment Billing BETTE-7 Assessment Tool: BETTE-7 Assessment 93438 (has therapist, denies any si or hi, on waiting list for psychiatrist) Review of Systems Const Denies chills and Denies fever(s) Eyes Denies blurry vision ENT Denies vertigo, Denies dizziness and Denies sore throat Card Denies chest pain at rest, Denies chest pain with activity, Denies diaphoresis, Denies dyspnea and Denies dyspnea on exertion Resp Denies cough, Denies dyspnea, Denies dyspnea on exertion and Denies wheezing GI Denies abdominal pain, Denies melena, Denies hematochezia, Denies constipation, Denies diarrhea and Denies loose stools Denies hematuria Musc Denies numbness and Denies tingling Skin/Breast Denies lesions Neuro Denies vertigo, Denies dizziness, Denies numbness and Denies tingling Psych Denies anxiety, Denies depression, Denies homicidal ideation, Denies suicidal ideation and Denies other (substance abuse) Aller/Immun Denies wheezing Physical exam (Primary Care) Vital Signs: Last Vital Signs Pulse 78 08/26/23 08:04 BP 124/66 08/26/23 08:04 Pulse Ox 98 08/26/23 08:04 Oxygen Delivery Method Room Air 08/26/23 08:04 BMI result Body Mass Index 44.8 Tobacco/Smoking Status: Tobacco use Status Tobacco use date assessed 08/26/23 08/26/23 08:09 Patient Tobacco Use Status Current everyday Tobacco 08/26/23 08:04 e-Cigarette/Vaping Use Never Used 08/26/23 08:04 PHQ-9: PHQ-9 Score PHQ-9: Total score 14 08/26/23 08:09 Depression Screening Interpretation: Positive (waiting list for psychiatry, denies any SI or HI) Depression Screening Follow-up: Existing condition and In treatment Thrive Assessment: Date of Thrive Assessment Date Thrive assessed 08/26/23 08/26/23 08:09 Currently or been in a relationship where the following occur: no concerns reported Const General: cooperative Nutritional Appearance: obese morbidly obese Orientation/consciousness: patient oriented x3 HENMT Head: Yes normal to inspection, Yes normocephalic and Yes atraumatic Ears: TM's normal bilaterally Eyes General: appearance normal, both eyes and all related structures Alignment and Position: alignment normal and position normal Neck Neck: Yes normal visual inspection and Yes no lymphadenopathy Thyroid: Thyroid normal Resp Effort & Inspection: normal respiratory effort Auscultation: clear to auscultation bilaterally Cardio Rate: regular rate Rhythm: regular rhythm Heart sounds: S1 normal heart sound present, S2 normal heart sound present and no murmurs GI Palpation (GI): Soft to palpation and nontender Auscultation: normal bowel sounds Skin Rashes: no rashes Neuro General: patient oriented x3, moves all extremities, no focal motor deficits and deep tendon reflexes 2+ bilaterally Romberg Test: Negative Psych Appearance: grossly normal Mental Status: mental status grossly normal Speech and movement: Normal speech and movement present Affect: normal affect Attitude: cooperative Thought process: Normal thought process present Thought content: Normal thought content present Insight: Good insight present (Psych) Judgement: Good judgement present (Psych) Assessment and Plan Assessment & Plan (1) Physical exam: Code(s): Z00.00 - Encounter for general adult medical examination without abnormal findings Plan: Labs ordered Plan The patient agreed to the use of a medical office scheduler for this encounter. Scribed for SONIYA Maya-ESTELA by Yaquelin Fernandez medical office scheduler, on 08/26/2023 at 08:10 EST. Orders: Orders TSH reflex Free T4 Today Z00.00 - Encounter for general adult medical examination without abnormal findings UA CC w/rflx Micro + Cult Today Z00.00 - Encounter for general adult medical examination without abnormal findings Lipid Panel Today Z00.00 - Encounter for general adult medical examination without abnormal findings Complete Blood Count Auto Diff Today Z00.00 - Encounter for general adult medical examination without abnormal findings Comprehensive [place]. Panel Fast Today Z00.00 - Encounter for general adult medical examination without abnormal findings Coding Level of Care Code Est Pt Prev Care 40-64y(09233) Diagnoses Physical exam Z00.00 Additional Codes BETTE-7 Assessment Billing - BETTE-7 Assessment Tool: BETTE-7 Assessment 96645 ([id number])
[2023-08-26 08:04] VITALS: BP 124/66; PULSE 78; O2SAT 98; BMI 44.8
== END 2023-08-26 08:19 | disposition home or self-care (01) ==
PROVIDERS: PCP Nurse Practitioner Family; Visit Provider Nurse Practitioner Family
DX: Z00.00 Encounter for general adult medical examination without abnormal findings (principal)
CPT/HCPCS: 99396

== ENCOUNTER 2023-11-29 14:29 | Outpatient (AMB) | payer OTHER, SELFPAY ==
--- NOTE | 2023-11-29 14:42 | A.OFFVIS_ITS ---
Vital Signs 11/29/23 14:48 Height 5 ft 4 in Weight 260 lb BMI 44.6 BP 112/68 Intake Visit Reasons: ? 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 feels like when she gets bacterial vaginosis she gets it maybe twice a year it often is associated with being after sex and every time she treats herself for BV with the metronidazole she says she ends up getting a yeast infection she has learned over time that if she takes the metronidazole pills for the bacterial vaginosis and then on day 3 of the course of taking the metronidazole she takes a single Diflucan and then on day 7 of the metronidazole she takes the 2nd Diflucan she prevents the subsequent yeast infection that often results for her she has found that this works very well and she is requesting this regimen and given her specificity of use and history I will prescribe it for her the discharge is consistent with BV though it is not abundant [facility] Medical History Bipolar 1 disorder Anxiety Primary osteoarthritis of knees, bilateral Surgical History Hx of arthroscopy of right knee Tubal ligation status Previous section History of repair of anterior cruciate ligament of left knee (~2009) Family History Other Mental health disorder Substance use disorder Social History Household Members Other:: BF Housing: Apartment Alcohol intake: current Alcohol intake frequency: 0-2 drinks per day Alcohol type: beer Patient Tobacco Use Status: Current everyday Tobacco user Cigarettes Per Day: 5 e-Cigarette/Vaping Use: Never Used Second Hand Smoke Exposure: No Substance Use Type: Crack/Cocaine 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al status: employed 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[employer], rt hand Cognitive needs: No Hearing needs: No Vision needs: No Female Reproductive History Menstrual Age of Menarche: 12 control method: permanent sterilization Total pregnancies: 5 Full term: 5 Number of Living Children: 4 Date of last pap smear: 06/12/21 (neg) History of abnormal pap smear: No Physical Exam Vital Signs: Last Vital Signs BP 112/68 11/29/23 14:48 BMI result Body Mass Index 44.6 Other: Vagina pink moist with a very homogeneous white discharge that could be consistent with BV. Cervix difficult to see secondary to positioning External Female Exam: normal external appearance and normal appearance of the urethra Speculum Exam - Vagina: normal appearance of the vagina and normal vaginal discharge Speculum Exam - Cervix: normal appearance of the cervix and Cervical os closed Assessment & Plan Assessment & Plan (1) Potential exposure to STD: Code(s): Z20.2 - Contact with and (suspected) exposure to infections with a predominantly sexual mode of transmission Category: Medical (2) Bacterial vaginosis: Comment: see note... 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 feels like when she gets bacterial vaginosis she gets it maybe twice a year it often is associated with being after sex and every time she treats herself for BV with the metronidazole she says she ends up getting a yeast infection she has learned over time that if she takes the metronidazole pills for the bacterial vaginosis and then on day 3 of the course of taking the metronidazole she takes a single Diflucan and then on day 7 of the metronidazole she takes the 2nd Diflucan she prevents the subsequent yeast infection that often results for her she has found that this works very well and she is requesting this regimen and given her specificity of use and history I will prescribe it for her the discharge is consistent with BV though it is not abundant Orders: Orders CT NG by PCR Today N89.8 - Other specified noninflammatory disorders of vagina, Z11.3 - Encounter for screening for infections with a predominantly sexual mode of transmission Bacterial Vaginosis Panel Today N89.8 - Other specified noninflammatory disorders of vagina Medications: New metronidazole 500 mg PO Q12H 14 tabs 0RF fluconazole may repeat second dose 72 hrs after first dose if symptoms persist 150 mg PO Q3D 2 doses 2 tabs 0RF Coding Level of Care Code Est Pt Level 3 (48169) Diagnoses Potential exposure to STD Z20.2 Bacterial vaginosis N76.0; B96.89
[2023-11-29 14:48] VITALS: BP 112/68; BMI 44.6
== END 2023-11-29 15:14 | disposition home or self-care (01) ==
LOC: HO.HWSM 14:30
PROVIDERS: PCP Nurse Practitioner Family; Visit Provider Advanced Practice Midwife
DX: Z20.2 Contact with and (suspected) exposure to infections with a predominantly sexual mode of transmission (principal); N76.0 Acute vaginitis; B96.89 Other specified bacterial agents as the cause of diseases classified elsewhere
CPT/HCPCS: 99213

== ENCOUNTER 2023-11-29 14:29 | Outpatient (REF) | payer OTHER, SELFPAY ==
[2023-11-30 11:08] LABS: Bacterial Vaginosis PCR NEGATIVE (Negative); Candida Group PCR DETECTED (Not Detect); Candida glab krusei PCR NOT DETECTED (Not Detect); Trichomonas vaginalis PCR NOT DETECTED (Not Detect)
[2023-11-30 13:31] LABS: CT PCR NOT DETECTED (Not Detect.); NG PCR NOT DETECTED (Not Detect.)
== END 2023-11-29 14:30 | disposition home or self-care (01) ==
LOC: HO.LAB 14:29
PROVIDERS: PCP Nurse Practitioner Family; Visit Provider Advanced Practice Midwife
DX: Z20.2 Contact with and (suspected) exposure to infections with a predominantly sexual mode of transmission (principal); N76.0 Acute vaginitis; B96.89 Other specified bacterial agents as the cause of diseases classified elsewhere
CPT/HCPCS: 0352U; 87491; 87591; 99212

== ENCOUNTER 2024-01-25 06:20 | Emergency (ER) | payer OTHER, SELFPAY ==
--- NOTE | ~2024-01-25 | US_ITS ---
EXAMINATION: US RETROPERITONEAL COMPLETE (RENAL) CLINICAL INFORMATION: Left-sided flank pain with vaginal itching. COMPARISON: None available. TECHNIQUE: Real-time imaging of the kidneys and bladder. FINDINGS: RIGHT KIDNEY: 12.4 x 5.6 x 4.6 cm (SAG x AP x TRV). The kidney is normal in size, contour, and echogenicity. Renal cortical thickness is normal. No calculi or focal parenchymal lesions. No hydronephrosis. LEFT KIDNEY: 12.0 x 6.0 x 4.8 cm (SAG x AP x TRV). The kidney is normal in size, contour, and echogenicity. Renal cortical thickness is normal. There is a 1.1 x 0.6 x 0.5 cm echogenic focus in the mid left kidney consistent with a nonobstructing calculus. No additional calculi or focal parenchymal lesions. No hydronephrosis. BLADDER: Not evaluated. US/US renal BI IMPRESSION: Nonobstructing 1.1 cm left renal calculus. Electronically signed by: Shane Connell MD 01/25/2024 10:56 AM EDT
[2024-01-25 06:39] VITALS: BP 158/96; PULSE 94; RESP 16; TEMP 36.9; O2SAT 98; BMI 43.3
[2024-01-25 06:48] LABS: Basophils Percent Auto 0.5 % (0-2); Eosinophils Absolute Auto 0.3 X10*3/uL (0.0-0.4); Hematocrit 38.3 % (37.0-47.0); Hemoglobin 12.8 g/dl (12.0-16.0); Imm Gran Abs Auto 0.03 X10*3/uL (0.00-0.03); Imm Gran Pct Auto 0.4 % (0.0-0.4); Lymphocytes Absolute Auto 3.1 X10*3/uL (1.2-4.9); Lymphocytes Percent Auto 39.9 % (20-40); MANUAL DIFF FLAG SCAN; Mean Corpuscular HGB Conc 33.4 g/dl (31.0-35.0); Mean Corpuscular Hemoglobin 32.1 pg (27.0-33.0); Mean Platelet Volume 9.2 fL (9.4-12.3); Monocytes Absolute Auto 0.4 X10*3/uL (0.1-1.2); Monocytes Percent Auto 5.6 % (2-11); Neutrophils Absolute Auto 3.8 x10*3/uL (2.0-8.3); Neutrophils Percent Auto 49.6 % (45-73); Platelet Count 357 X10*3/uL (160-400); Red Blood Count 3.99 X10*6/uL (4.20-5.50); Red Cell Distribution Width 13.1 % (11.0-16.0); SCAN SMEAR FLAG 1; UPreg QC Valid YES; White Blood Count 7.7 X10*3/uL (4.8-10.8)
[2024-01-25 06:49] LABS: Appearance Urine Clear; Color Urine Yellow; Glucose Urine UA Negative (Negative); Leukocyte Esterase Urine Negative (Negative); Nitrite Urine Negative (Negative); PH 7.5 (5.0-9.0); Specific Gravity - Urine 1.015 (1.005-1.025); Urine Blood Negative (Negative); Urine Ketones Negative (Negative); Urine Pregnancy NEGATIVE (NEGATIVE); Urine Protein Negative (Neg-Trace)
--- NOTE | 2024-01-25 06:50 | PC.NURSE ---
pt from home, a&ox4, respirations even and unlabored. pt reporting onset of flank pain x1 day and complaining of vaginal itching. pt reports she is unsure she has come in contact with an STD and would like to be treated for it. pt reports nausea but denies vomiting and diarrhea. 20G place in right ac, labs obtained and sent. urine sample obtained and sent to lab.
[2024-01-25 06:54] LABS: Bacteria Urine None Seen (None Seen); Hyaline Casts Urine 0-2 /LPF (0-2); RBC Urine 0-2 /HPF (0-2); Squamous Epithelial Cell Urine 0-2 /HPF (0-2); WBC Urine 0-5 /HPF (0-5)
[2024-01-25 07:03] LABS: Alanine Aminotransferase 13 U/L (0-31); Albumin Level 3.6 g/dL (3.5-5.0); Alkaline Phosphatase 79 U/L (39-117); Anion Gap 11 (12-20); Aspartate Amino Transferase 15 U/L (5-31); Bilirubin Total 0.2 mg/dL (0.0-1.0); Blood Urea Nitrogen 14 mg/dL (9-16); Calcium 9.5 mg/dL (8.4-10.2); Carbon Dioxide 23 mmol/L (22-29); Chloride 108 mmol/L (96-108); Creatinine Clr Calc Pharmacy 119.1; Estimated Glomerular Filt Rate > 60; Glucose Random 107 mg/dL (60-115); Lipase 20 U/L (8-78); Potassium 3.9 mmol/L (3.3-5.1); Sodium 138 mmol/L (135-145); Total Protein 6.3 g/dL (6.5-8.0)
[2024-01-25 07:21] LABS: SLIDE REVIEW VERIFIED
[2024-01-25] MEDS: Acetaminophen 325 MG TABLET 650 MG PO (07:50)
[2024-01-25] MEDS: Fluconazole 150 MG TABLET PO (08:27)
--- NOTE | 2024-01-25 08:50 | ED_ITS ---
HPI - Female Genitourinary General Chief complaint: Urogenital-Female Stated complaint: kidney/side pain Time Seen by Provider: 01/25/24 07:12 Source: patient, RN notes reviewed and old records reviewed Mode of arrival: ambulatory History of Present Illness ED Provider: Jeanie Olsen PA-C HPI Narrative: 48-year-old female with a past medical history of bipolar, anxiety, osteoarthritis, presenting to the ED complaining of left flank pain x6 days and vaginal itchiness x3 days. States pain is nonradiating. Is sexually active with 1 male partner, however is concern for possible STI. Denies injury or fall, dysuria/hematuria, frequency, vaginal discharge, vaginal bleeding, abdominal pain, nausea/vomiting Related Data Previous Rx's ?Medication ?Instructions ?Recorded fluconazole 150 mg tablet 150 mg PO Q3D 2 doses #2 tabs 11/29/23 metronidazole 500 mg tablet 500 mg PO Q12H #14 tabs 11/29/23 fluconazole 150 mg tablet 150 mg PO Q3D 1 dose #1 tab 01/25/24 phenazopyridine 200 mg tablet 200 mg PO TID PRN pain 6 doses #6 01/25/24 (Pyridium) tabs tamsulosin 0.4 mg capsule (Flomax) 0.4 mg PO DAILY #14 caps 01/25/24 Allergies Allergy/AdvReac Type Severity Reaction Status Date / Time No Known Allergies Allergy Verified 01/25/24 06:42 Review of Systems 2 Review of Systems: Constitutional: No Fever, No Chills ENT/Mouth: No Ear Pain, No sore throat, No Rhinorrhea, No Swallowing Difficulty Cardiovascular: No Chest Pain, No SOB Respiratory: No Cough Gastrointestinal: No Nausea, No Vomiting, No Diarrhea, No Constipation, No Abdominal pain Genitourinary: + vaginal itchiness, no vaginal bleeding, no vaginal discharge, no vaginal lesions, No Dysuria, No Urinary Frequency, No Hematuria, No Urgency, + Flank Pain Musculoskeletal: No joint pain, No Myalgias, No Joint Swelling Skin: No Skin Lesions, No rash Neuro: No Weakness Yes all other systems are reviewed and are negative Constitutional: Constitutional: Reports as per [facility] Past Medical History Attestation statement: The following information was validated with the patient. Source: old records reviewed Medical History Bipolar 1 disorder Anxiety Primary osteoarthritis of knees, bilateral Surgical History Hx of arthroscopy of right knee Tubal ligation status Previous section History of repair of anterior cruciate ligament of left knee (~2009) Family History Family History Other Mental health disorder Substance use disorder Social History Social History Household Members Other:: BF Housing: Apartment Alcohol intake: current Alcohol intake frequency: 0-2 drinks per day Alcohol type: beer Patient Tobacco Use Status: Current everyday Tobacco user Cigarettes Per Day: 5 Smoked in Last 30 Days: Yes e-Cigarette/Vaping Use: Never Used Second Hand Smoke Exposure: No Use of substances other than those prescribed or required for medical reasons: No Substance Use Type: Crack/Cocaine Advance Directives: No Advance Directives Information Provided: Yes Do you have a plan to hurt others: No Plan Patient : No 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al status: employed 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[employer] Cognitive needs: No Hearing needs: No Vision needs: No Physical Exam 2 Vital Signs: Vital Signs: Last Vital Signs Temp 98.4 F 01/25/24 11:53 Pulse 77 01/25/24 11:53 Resp 16 01/25/24 11:53 BP 141/67 H 01/25/24 11:53 Pulse Ox 98 01/25/24 11:53 O2 Del Method Room Air 01/25/24 11:53 BMI result Body Mass Index 43.3 Const: General: cooperative, healthy appearing and no acute distress O rientation/consciousness: patient oriented x3 Limitations: no limitations HEENT: Head: Yes normal to inspection and Yes atraumatic Ears: hearing grossly normal bilaterally General nose exam: Normal external nose present Face and sinus: Yes normal facial exam Eyes: General: appearance normal, both eyes and all related structures EOM: EOMs intact bilaterally Neck: Neck: Yes normal visual inspection and Yes no meningeal signs Resp: Effort & Inspection: normal respiratory effort and no respiratory distress Auscultation: clear to auscultation bilaterally Cardio: Rate: regular rate Heart sounds: S1 normal heart sound present and S2 normal heart sound present GI: Inspection: Yes normal to inspection Palpation (GI): Soft to palpation, nontender, no guarding and not rigid : General: Yes CVA tenderness on the left Speculum Exam - Vagina: no lesions, No vaginal bleeding, nontender and other (+ white thick vaginal discharge appreciated.) Bimanual exam- vagina & uterus: normal bimanual exam and no cervical motion tenderness Bimanual Exam- Adnexa, other: normal adnexae, no masses and no tenderness OB/external & speculum: No vaginal bleeding Back/Spine/Pelvis: Back: CVA tenderness Skin: Rashes: no rashes Wounds: no wounds Neuro: General: patient oriented x3, tone normal and no meningeal signs C ranial nerves: Yes CN's II-XII intact bilaterally Gait exam (Neuro): Normal gait present Extrem: General: Yes normal to inspection Course Course Course Narrative: -no leukocytosis. Labs otherwise reassuring. -UA negative US renal BI IMPRESSION: Nonobstructing 1.1 cm left renal calculus. -STI testing negative. Patient already given empiric dose of IM Rocephin and 1st dose of doxycycline in the ED, discussed will not need to continue these prescriptions. Patient also received 1 time dose of Diflucan in the ED, will send additional dose for this home as well as Pyridium & flomax. Recommended close wedding coordinator and urology follow-up Results discussed with patient including worrisome signs and symptoms and strict return precautions, and when to return to the emergency department. They verbalized understanding and feel safe for discharge at this time. Medications Administered Discontinued Medications Generic Name Dose Route Start Last Admin Trade Name Juan Diego PRN Reason Stop Dose Admin Acetaminophen 650 mg 01/25/24 07:36 01/25/24 07:50 Acetaminophen 325 Mg Tablet PO 01/25/24 07:37 650 mg ONCE ONE Administration Ceftriaxone Sodium 500 mg/ 0 mg 01/25/24 08:55 01/25/24 09:10 Lidocaine HCl 1 ml IM 01/25/24 08:56 1 kit ONCE ONE Administration Doxycycline Monohydrate 100 mg 01/25/24 08:55 01/25/24 09:10 Doxycycline Monohydrate 100 Mg Capsule PO 01/25/24 08:56 100 mg ONCE ONE Administration Fluconazole 150 mg 01/25/24 08:20 01/25/24 08:27 Fluconazole 150 Mg Tablet PO 01/25/24 08:21 150 mg ONCE ONE Administration Morphine Sulfate 4 mg 01/25/24 10:57 01/25/24 11:11 Morphine Sulfate 4 Mg/Ml Cartridge IVPUSH 01/25/24 10:58 Not Given ONCE STA Protocol Medical Decision Making Medical Decision Making [facility] Narrative: 48-year-old female with a past medical history of bipolar, anxiety, osteoarthritis, presenting to the ED complaining of left flank pain x6 days and vaginal itchiness x3 days. On exam vital signs stable, NAD, nontoxic appearing, left CVAT noted, abdomen soft and nontender. White thick vaginal discharge appreciated on pelvic exam without CMT or adnexal tenderness. Concern for STI vs yeast infection vs UTI/pyelo vs ?renal stone vs MSK pain. Lower suspicion for diverticulitis/appendicitis or TOA/ovarian torsion Plan: Labs, UA, renal ultrasound, p.o. Diflucan, empiric treatment with Rocephin/Doxy Please refer to course for remaining clinical decision making, interpretation of labs/imaging results, and discussions with consultants and/or family members. Differential Diagnosis Differential Diagnoses: The differential diagnosis associated with the presentation includes As above Admission/Observation Consideration of admission/observation: Escalation of care including admission/observation considered Lab Data [facility] Lab Attestation statement: I reviewed the patient's lab results. 01/25/24 06:41 01/25/24 06:41 Labs: Lab Results 01/25/24 01/25/24 01/25/24 Range/Units 06:41 07:18 08:20 WBC 7.7 (4.8-10.8) X10*3/uL RBC 3.99 L (4.20-5.50) X10*6/uL Hgb 12.8 (12.0-16.0) g/dl Hct 38.3 (37.0-47.0) % MCV 96.0 (80.0-98.0) fL MCH 32.1 (27.0-33.0) pg MCHC 33.4 (31.0-35.0) g/dl RDW 13.1 (11.0-16.0) % Plt Count 357 (160-400) X10*3/uL MPV 9.2 L (9.4-12.3) fL Immature Gran % (Auto) 0.4 (0.0-0.4) % Neut % (Auto) 49.6 (45-73) % Lymph % (Auto) 39.9 (20-40) % [place] % (Auto) 5.6 (2-11) % Eos % (Auto) 4.0 (0-4) % Baso % (Auto) 0.5 (0-2) % Lymph # (Auto) 3.1 (1.2-4.9) X10*3/uL [place] # (Auto) 0.4 (0.1-1.2) X10*3/uL Eos # (Auto) 0.3 (0.0-0.4) X10*3/uL Baso # (Auto) 0.0 (0.0-0.2) X10*3/uL Abs Immat Gran (auto) 0.03 (0.00-0.03) X10*3/uL Absolute Neuts (auto) 3.8 (2.0-8.3) x10*3/uL Absolute Nucleated RBC 0.000 (0.0-0.012) X10*3/uL Nucleated RBC % (auto) 0.0 (0.0-0.2) /100WBC Smear Tech's Comments VERIFIED Sodium 138 (135-145) mmol/L Potassium 3.9 (3.3-5.1) mmol/L Chloride 108 (96-108) mmol/L Carbon Dioxide 23 (22-29) mmol/L Anion Gap 11 L (12-20) BUN 14 (9-16) mg/dL Creatinine 0.75 (0.5-1.4) mg/dL Estim Creat Clear Calc 119.1 Estimated GFR > 60 Random Glucose 107 (60-115) mg/dL Calcium 9.5 (8.4-10.2) mg/dL Total Bilirubin 0.2 (0.0-1.0) mg/dL AST 15 (5-31) U/L ALT 13 (0-31) U/L Alkaline Phosphatase 79 (39-117) U/L Total Protein 6.3 L (6.5-8.0) g/dL Albumin 3.6 (3.5-5.0) g/dL Lipase 20 (8-78) U/L Urine Color Yellow Urine Appearance Clear Urine pH 7.5 (5.0-9.0) Ur Specific [place] 1.015 (1.005-1.025) Urine Protein Negative (Neg-Trace) mg/dL Urine Glucose (UA) Negative (Negative) mg/dL Urine Ketones Negative (Negative) mg/dL Urine Blood Negative (Negative) Urine Nitrite Negative (Negative) Ur Leukocyte Esterase Negative (Negative) Urine RBC 0-2 (0-2) /HPF Urine WBC 0-5 (0-5) /HPF Ur Squamous Epith Cells 0-2 (0-2) /HPF Urine Bacteria None Seen (None Seen) Hyaline Casts 0-2 (0-2) /LPF Urine Test NEGATIVE (NEGATIVE) Chlam trachomat DNA PCR NOT DETECTED Cancelled (Not Detect.) N.gonorrhoeae DNA (PCR) NOT DETECTED Cancelled (Not Detect.) T. vaginalis (PCR) NOT DETECTED (Not Detect) Bact Vaginosis (PCR) NEGATIVE (Negative) C. krusei/glabrata (PCR) NOT DETECTED (Not Detect) Diana group (PCR) NOT DETECTED (Not Detect) Independent Interpretation I performed an independent interpretation of an: Ultrasound Radiology Impression Discussion of test interpretation with radiology: I have reviewed the radiologist's reading. External Record Review External record reviewed: Inpatient record, Office record, Outpatient record, Prior outpatient labs, Prior outpatient radiology, Primary care record and Outside ED record Tests considered The following testing was considered but not selected: As above Prescription Management I considered prescription management with: Pain Medication Discharge Plan Discharge Clinical Impression: Left renal stone, Vaginal discharge Patient Disposition: Home, Self-Care Instructions: Kidney Stones (ED), Vaginal Discharge (ED) Additional Instructions: You have a 1.1 cm stone in your left kidney. Flomax will help dilate your ureter. This done should not be causing you any pain/issues at this time. Please follow-up with urology Fluconazole is to treat yeast infection. You were given 1st dose in the emergency department, if symptoms persist take 2nd dose in 3 days Pyridium will turn your urine orange, this is normal If her symptoms persist or worsen or pain becomes unbearable, please return to the emergency department Please follow-up with urology and wedding coordinator Your STI testing was negative today Prescriptions: New tamsulosin [Flomax] 0.4 mg capsule 0.4 mg PO DAILY Qty: 14 0RF fluconazole 150 mg tablet 150 mg PO Q3D Qty: 1 0RF Rx Instructions: may repeat second dose 72 hrs after first dose if symptoms persist (1st dose given 01/24) phenazopyridine [Pyridium] 200 mg tablet 200 mg PO TID PRN (Reason: pain) Qty: 6 0RF No Action fluconazole 150 mg tablet 150 mg PO Q3D 0 Days Qty: 2 0RF Rx Instructions: may repeat second dose 72 hrs after first dose if symptoms persist metronidazole 500 mg tablet 500 mg PO Q12H Qty: 14 0RF [place] [facility] [place] [facility] [place] Interventions: ED Discharge Assessment Last Done: 01/25/24 11:53 Discharge Date/Time: 01/25/24 11:54 Print Language: Malay
[2024-01-25 09:08] LABS: CT PCR NOT DETECTED (Not Detect.); NG PCR NOT DETECTED (Not Detect.)
[2024-01-25] MEDS: Doxycycline Monohydrate 100 MG CAPSULE PO (09:10)
[2024-01-25] MEDS: cefTRIAXone sodium 500 MG, Lidocaine HCl 1 % MPF 1 ML IM (09:10)
[2024-01-25 09:29] VITALS: BP 132/69; PULSE 70; RESP 20; TEMP 36.9; O2SAT 98
[2024-01-25 09:39] LABS: Bacterial Vaginosis PCR NEGATIVE (Negative); Candida Group PCR NOT DETECTED (Not Detect); Candida glab krusei PCR NOT DETECTED (Not Detect); Trichomonas vaginalis PCR NOT DETECTED (Not Detect)
[2024-01-25 11:53] VITALS: BP 141/67; PULSE 77; RESP 16; TEMP 36.9; O2SAT 98
== END 2024-01-25 11:54 | disposition home or self-care (01) ==
PROVIDERS: Physician Assistant; Emergency Provider Emergency Medicine Emergency Medical Services
DX: N20.0 Calculus of kidney (principal); N89.8 Other specified noninflammatory disorders of vagina; R10.9 Unspecified abdominal pain; L29.2 Pruritus vulvae; Z20.2 Contact with and (suspected) exposure to infections with a predominantly sexual mode of transmission; Z79.899 Other long term (current) drug therapy
CPT/HCPCS: 0352U; 36415; 76775; 80053; 81001; 81025; 83690; 85025; 87491; 87591; 96372; 99284; 99285; J0696

== ENCOUNTER 2024-02-04 10:06 | Outpatient (REF) | payer OTHER, SELFPAY ==
[2024-02-04 13:29] LABS: Basophils Absolute Auto 0.1 X10*3/uL (0.0-0.2); Basophils Percent Auto 0.7 % (0-2); Eosinophils Absolute Auto 0.3 X10*3/uL (0.0-0.4); Eosinophils Percent Auto 3.6 % (0-4); Hematocrit 39.8 % (37.0-47.0); Imm Gran Abs Auto 0.02 X10*3/uL (0.00-0.03); Imm Gran Pct Auto 0.2 % (0.0-0.4); Lymphocytes Percent Auto 36.1 % (20-40); MANUAL DIFF FLAG SCAN; Mean Corpuscular HGB Conc 32.7 g/dl (31.0-35.0); Mean Corpuscular Volume 94.8 fL (80.0-98.0); Mean Platelet Volume 9.7 fL (9.4-12.3); Monocytes Absolute Auto 0.5 X10*3/uL (0.1-1.2); Monocytes Percent Auto 5.9 % (2-11); Neutrophils Absolute Auto 4.5 x10*3/uL (2.0-8.3); Neutrophils Percent Auto 53.5 % (45-73); Platelet Count 370 X10*3/uL (160-400); Red Cell Distribution Width 12.9 % (11.0-16.0); SCAN SMEAR FLAG 1; White Blood Count 8.4 X10*3/uL (4.8-10.8)
[2024-02-04 13:57] LABS: SLIDE REVIEW VERIFIED
[2024-02-04 14:09] LABS: Alanine Aminotransferase 12 U/L (0-31); Albumin Level 4.1 g/dL (3.5-5.0); Alkaline Phosphatase 81 U/L (39-117); Anion Gap 12 (12-20); Aspartate Amino Transferase 15 U/L (5-31); Bilirubin Total 0.6 mg/dL (0.0-1.0); Blood Urea Nitrogen 6 mg/dL (9-16); Calcium 9.5 mg/dL (8.4-10.2); Carbon Dioxide 25 mmol/L (22-29); Chloride 105 mmol/L (96-108); Cholesterol 201 mg/dL (<200); Estimated Glomerular Filt Rate > 60; Glucose Fasting 92 mg/dL (60-99); HDL Cholesterol 48 mg/dL (>40); LDL Cholesterol Calculated 136 mg/dL (<100); Potassium 3.1 mmol/L (3.3-5.1); Sodium 139 mmol/L (135-145); Total Protein 6.9 g/dL (6.5-8.0); Triglycerides 89 mg/dL (<150)
[2024-02-04 16:24] LABS: Appearance Urine Clear; Color Urine Yellow; Glucose Urine UA Negative (Negative); Leukocyte Esterase Urine Negative (Negative); Nitrite Urine Negative (Negative); Specific Gravity - Urine <= 1.005 (1.005-1.025); Urine Blood Negative (Negative); Urine Ketones Negative (Negative); Urine Protein Negative (Neg-Trace)
[2024-02-07 14:29] LABS: TS Negative Control Passed; TS Panel A 0; TS Panel B 0; TS Positive Control Passed; TSpotTB Negative (Negative)
== END 2024-02-04 10:07 | disposition home or self-care (01) ==
LOC: HO.HMGCLDS 10:06
PROVIDERS: PCP Nurse Practitioner Family; Visit Provider Nurse Practitioner Family
DX: Z00.00 Encounter for general adult medical examination without abnormal findings (principal); Z11.1 Encounter for screening for respiratory tuberculosis
CPT/HCPCS: 36415; 80053; 80061; 81003; 84443; 85025; 86481

== ENCOUNTER 2024-02-06 09:06 | Emergency (ER) | payer OTHER, SELFPAY ==
--- NOTE | ~2024-02-06 | CT_ITS ---
EXAMINATION: CT ABDOMEN AND PELVIS WITH CONTRAST CLINICAL INFORMATION: Left lower quadrant abdominal pain, left flank pain COMPARISON: None available. TECHNIQUE: Multidetector volumetric images were obtained from the superior aspect of the liver through the pubic symphysis following administration 85 mL of Omnipaque 350 intravenous contrast. Sagittal and coronal reformatted images were obtained on the technologist's workstation. Oral contrast: No This CT examination was performed using dose optimization techniques as appropriate, variously including the following: *Automated exposure control *Adjustment of mA and/or kV according to patient size (this includes techniques or standardized protocols for targeted exams where dose is matched to indication/reason for exam; i.e. extremities or head) *Use of iterative reconstruction technique DLP: 917 mGy-cm FINDINGS: LUNG BASES: Unremarkable. LIVER AND BILIARY TREE: Hepatomegaly with liver spanning 21.4 cm in craniocaudal dimension. GALLBLADDER: Unremarkable. PANCREAS: Unremarkable. SPLEEN: Unremarkable. ADRENAL GLANDS: Unremarkable. KIDNEYS AND URETERS: Suggestion of an interpolar left renal calyceal diverticulum containing a 2mm calculus. No hydronephrosis or other urinary tract calculi identified. GASTROINTESTINAL TRACT: Severe sigmoid-predominant colonic diverticulosis without evidence of acute diverticulitis. Normal appendix. VASCULAR: Unremarkable LYMPH NODES: No lymphadenopathy. PERITONEUM: No ascites. BLADDER: Unremarkable. PELVIC VISCERA: Uterus adherent to the ventral lower abdominal wall. ABDOMINAL AND PELVIC WALL: Unremarkable. OSSEOUS STRUCTURES: Mild multilevel degenerative thoracolumbar spondylosis, worst at L5-S1. CT/CT abdomen pelvis w IV con IMPRESSION: 1. No acute abnormality of the abdomen or pelvis. 2. Severe sigmoid-predominant colonic diverticulosis without evidence of acute diverticulitis. 3. Hepatomegaly. Electronically signed by: Que Martinez MD 02/06/2024 02:18 PM EDT
[2024-02-06 09:10] VITALS: BP 131/93; PULSE 90; RESP 19; TEMP 36.6; O2SAT 99; BMI 44.6
[2024-02-06 10:45] LABS: Basophils Absolute Auto 0.1 X10*3/uL (0.0-0.2); Basophils Percent Auto 0.6 % (0-2); Eosinophils Absolute Auto 0.3 X10*3/uL (0.0-0.4); Eosinophils Percent Auto 3.9 % (0-4); Hematocrit 39.2 % (37.0-47.0); Imm Gran Abs Auto 0.02 X10*3/uL (0.00-0.03); Imm Gran Pct Auto 0.3 % (0.0-0.4); Lymphocytes Absolute Auto 2.6 X10*3/uL (1.2-4.9); Lymphocytes Percent Auto 32.6 % (20-40); MANUAL DIFF FLAG SCAN; Mean Corpuscular HGB Conc 33.2 g/dl (31.0-35.0); Mean Corpuscular Hemoglobin 31.6 pg (27.0-33.0); Mean Corpuscular Volume 95.4 fL (80.0-98.0); Mean Platelet Volume 9.1 fL (9.4-12.3); Monocytes Absolute Auto 0.4 X10*3/uL (0.1-1.2); Monocytes Percent Auto 5.3 % (2-11); Neutrophils Absolute Auto 4.6 x10*3/uL (2.0-8.3); Neutrophils Percent Auto 57.3 % (45-73); Platelet Count 314 X10*3/uL (160-400); Red Blood Count 4.11 X10*6/uL (4.20-5.50); Red Cell Distribution Width 12.8 % (11.0-16.0); SCAN SMEAR FLAG 1
[2024-02-06 10:48] LABS: Appearance Urine Clear; Color Urine Yellow; Glucose Urine UA Negative (Negative); Leukocyte Esterase Urine Negative (Negative); Nitrite Urine Negative (Negative); PH 6.5 (5.0-9.0); Specific Gravity - Urine 1.015 (1.005-1.025); Urine Blood Negative (Negative); Urine Ketones Negative (Negative); Urine Protein Negative (Neg-Trace)
[2024-02-06 10:49] LABS: UPreg QC Valid YES; Urine Pregnancy NEGATIVE (NEGATIVE)
[2024-02-06 10:58] LABS: Anion Gap 12 (12-20); Blood Urea Nitrogen 6 mg/dL (9-16); Calcium 8.8 mg/dL (8.4-10.2); Carbon Dioxide 26 mmol/L (22-29); Chloride 108 mmol/L (96-108); Creatinine Clr Calc Pharmacy 127.2; Estimated Glomerular Filt Rate > 60; Glucose Random 101 mg/dL (60-115); Potassium 3.7 mmol/L (3.3-5.1); Sodium 142 mmol/L (135-145)
[2024-02-06 11:12] LABS: SLIDE REVIEW VERIFIED
--- NOTE | 2024-02-06 11:53 | ED.FEMALEGU ---
HPI - Female Genitourinary General Chief complaint: Urogenital-Female Stated complaint: Kidney stone Time Seen by Provider: 02/06/24 11:19 Source: patient Mode of arrival: ambulatory Limitations: no limitations History of Present Illness ED Provider: Dr. Slade Cruz HPI Narrative: 48-year-old female who presents emergency department for evaluation of left flank pain since 01/19/2024. The patient states that the pain initially came on gradually but then became severe. She has been taking a leave with some improvement of her pain. She states the pain is 7/10 at its worse. The pain does not radiate to her abdomen. She denied fever but did have chills. She had nausea with no vomiting or diarrhea. She denied frequency, urgency or dysuria. She did not note any hematuria. The patient was seen in the emergency department on 01/25/2024 for similar flank pain. She was also concerned about STI exposure. Patient did have a renal ultrasound which revealed a nonobstructing 1.1 cm left renal calculus. Her STI workup was negative. Related Data Previous Rx's ?Medication ?Instructions ?Recorded fluconazole 150 mg tablet 150 mg PO Q3D 2 doses #2 tabs 11/29/23 metronidazole 500 mg tablet 500 mg PO Q12H #14 tabs 11/29/23 fluconazole 150 mg tablet 150 mg PO Q3D 1 dose #1 tab 01/25/24 phenazopyridine 200 mg tablet 200 mg PO TID PRN pain 6 doses #6 01/25/24 (Pyridium) tabs tamsulosin 0.4 mg capsule (Flomax) 0.4 mg PO DAILY #14 caps 01/25/24 ondansetron 4 mg disintegrating 4 mg PO Q6-8H PRN nausea and 02/06/24 tablet vomiting #14 tabs oxycodone 5 mg tablet 5 mg PO Q6H PRN pain #10 tabs 02/06/24 Allergies Allergy/AdvReac Type Severity Reaction Status Date / Time No Known Allergies Allergy Verified 02/06/24 09:12 Review of Systems Review of Systems: Yes all other systems are reviewed and are negative [facility] Past Medical History Medical History Bipolar 1 disorder Anxiety Primary osteoarthritis of knees, bilateral Surgical History Hx of arthroscopy of right knee Tubal ligation status Previous section History of repair of anterior cruciate ligament of left knee (~2009) Family History Family History Other Mental health disorder Substance use disorder Social History Social History Household Members Other:: BF Housing: Apartment Alcohol intake: current Alcohol intake frequency: 0-2 drinks per day Alcohol type: beer Patient Tobacco Use Status: Current everyday Tobacco user Cigarettes Per Day: 5 e-Cigarette/Vaping Use: Never Used Second Hand Smoke Exposure: No Substance Use Type: Crack/Cocaine Advance Directives: No Advance Directives Information Provided: No Patient : No 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al status: employed 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[employer] Cognitive needs: No Hearing needs: No Vision needs: No Physical Exam Vital Signs: Vital Signs: Last Vital Signs Temp 0 F L 02/06/24 15:26 Pulse 76 02/06/24 15:26 Resp 18 02/06/24 15:26 BP 00/00 L 02/06/24 15:26 Pulse Ox 95 02/06/24 15:26 O2 Del Method Room Air 02/06/24 15:26 BMI result Body Mass Index 44.6 Exam: General: Awake, alert in no distress Head: Normocephalic, atraumatic EENT: PERRL, Lids normal, sclera normal, conjunctiva normal, nose normal , ears normal, throat without erythema or exudates Neck: Supple, no adenopathy Lung: breath sounds symmetric, no wheezing, rales or rhonchi Chest: symmetric movement, nontender Heart: regular rate and rhythm, normal S1, S2 no murmurs or rubs Abdomen: soft, non-tender, nondistended, normal bowel sounds Back: no vertebral tenderness, moderate left CVA tenderness Extremities: no deformities, moves all extremities symmetrically Neuro: Awake, alert, oriented, normal speech, cranial nerves intact, moves all extremities symmetrically Psych: Pleasant, cooperative Medications Administered Discontinued Medications Generic Name Dose Route Start Last Admin Trade Name Freq PRN Reason Stop Dose Admin Ketorolac Tromethamine 15 mg 02/06/24 11:55 02/06/24 12:17 Ketorolac Tromethamine 15 Mg/Ml Vial IVPUSH 02/06/24 11:56 15 mg ONCE STA Administration Ondansetron HCl 4 mg 02/06/24 11:55 02/06/24 12:17 Ondansetron Hcl 4 Mg/2 Ml Vial IVPUSH 02/06/24 11:56 4 mg ONCE ONE Administration Medical Decision Making Medical Decision Making MDM Narrative: 48-year-old female who presents emergency department for evaluation of left flank pain since 01/19/2024, seen in the emergency department on 01/25/2024 and had an ultrasound which revealed a left 1.1 cm renal calculi who presents with persistent left flank pain associated with chills and nausea but no frequency, urgency, dysuria or hematuria. physical exam did reveal left CVA tenderness with no abdominal tenderness Differential diagnosis: Includes but is not limited to renal colic, ureteral colic, ureteral stone, urinary tract infection, musculoskeletal pain, anemia, electrolyte abnormalities Patient was initially treated with the following: Toradol 15 mg IV, Zofran 4 mg IV and normal saline 1 L IV Course: Patient did get improvement of her pain and nausea with the above treatment. Laboratory evaluation was unremarkable and urinalysis /microscopic was negative for infectious process. CT scan of the abdomen pelvis with IV contrast was suggestive of an interpolar left renal calyceal diverticulum containing a 2mm calculus with no hydronephrosis or other urinary tract calculi identified. I did discuss this finding with the patient and it is possible that this may explain her left flank pain. Patient was advised to continue using a leave 220 mg every 12 hours as needed for pain. She was given a prescription for oxycodone 5 mg every 6 hours as needed for pain not relieved by a leave. She was also given a prescription for Zofran 4 mg ODT every 6 hours as needed for nausea and vomiting. She was advised to contact our on-call urologist, Dr. Dev Lyles to try you move up her follow-up appointment the patient did have an incidental finding of hepatomegaly and diverticulosis. The patient states she does drink alcohol and I strongly advised her to stop drinking given her hepatomegaly. Patient's LFTs from her previous ED visit on 01/25/2024 were normal. The patient will be referred to our on-call GI physician, Dr. Garnett for further evaluation of her hepatomegaly. Admission/Observation Consideration of admission/observation: Escalation of care including admission/observation considered ( yes) Lab Data MDM Lab Attestation statement: I reviewed the patient's lab results. my interpretation patient's laboratory evaluation is as follows: CBC was normal. BNP was normal. Patient's previous CMP on 01/25/2024 revealed normal LFTs. Urinalysis was negative. Your test was negative. 02/06/24 10:40 02/06/24 10:40 Labs: Lab Results 02/06/24 Range/Units 10:40 WBC 8.0 (4.8-10.8) X10*3/uL RBC 4.11 L (4.20-5.50) X10*6/uL Hgb 13.0 (12.0-16.0) g/dl Hct 39.2 (37.0-47.0) % MCV 95.4 (80.0-98.0) fL MCH 31.6 (27.0-33.0) pg MCHC 33.2 (31.0-35.0) g/dl RDW 12.8 (11.0-16.0) % Plt Count 314 (160-400) X10*3/uL MPV 9.1 L (9.4-12.3) fL Immature Gran % (Auto) 0.3 (0.0-0.4) % Neut % (Auto) 57.3 (45-73) % Lymph % (Auto) 32.6 (20-40) % [place] % (Auto) 5.3 (2-11) % Eos % (Auto) 3.9 (0-4) % Baso % (Auto) 0.6 (0-2) % Lymph # (Auto) 2.6 (1.2-4.9) X10*3/uL [place] # (Auto) 0.4 (0.1-1.2) X10*3/uL Eos # (Auto) 0.3 (0.0-0.4) X10*3/uL Baso # (Auto) 0.1 (0.0-0.2) X10*3/uL Abs Immat Gran (auto) 0.02 (0.00-0.03) X10*3/uL Absolute Neuts (auto) 4.6 (2.0-8.3) x10*3/uL Absolute Nucleated RBC 0.000 (0.0-0.012) X10*3/uL Nucleated RBC % (auto) 0.0 (0.0-0.2) /100WBC Smear Tech's Comments VERIFIED Sodium 142 (135-145) mmol/L Potassium 3.7 (3.3-5.1) mmol/L Chloride 108 (96-108) mmol/L Carbon Dioxide 26 (22-29) mmol/L Anion Gap 12 (12-20) BUN 6 L (9-16) mg/dL Creatinine 0.69 (0.5-1.4) mg/dL Estim Creat Clear Calc 127.2 Estimated GFR > 60 Random Glucose 101 (60-115) mg/dL Calcium 8.8 D (8.4-10.2) mg/dL Urine Color Yellow Urine Appearance Clear Urine pH 6.5 (5.0-9.0) Ur Specific [place] 1.015 (1.005-1.025) Urine Protein Negative (Neg-Trace) mg/dL Urine Glucose (UA) Negative (Negative) mg/dL Urine Ketones Negative (Negative) mg/dL Urine Blood Negative (Negative) Urine Nitrite Negative (Negative) Ur Leukocyte Esterase Negative (Negative) Urine Test NEGATIVE (NEGATIVE) Radiology Impression Discussion of test interpretation with radiology: I have reviewed the radiologist's reading. Radiologist Impression: EXAMINATION: CT ABDOMEN AND PELVIS WITH CONTRAST CLINICAL INFORMATION: Left lower quadrant abdominal pain, left flank pain FINDINGS: LUNG BASES: Unremarkable. LIVER AND BILIARY TREE: Hepatomegaly with liver spanning 21.4 cm in craniocaudal dimension. GALLBLADDER: Unremarkable. PANCREAS: Unremarkable. SPLEEN: Unremarkable. ADRENAL GLANDS: Unremarkable. KIDNEYS AND URETERS: Suggestion of an interpolar left renal calyceal diverticulum containing a 2mm calculus. No hydronephrosis or other urinary tract calculi identified. GASTROINTESTINAL TRACT: Severe sigmoid-predominant colonic diverticulosis without evidence of acute diverticulitis. Normal appendix. VASCULAR: Unremarkable LYMPH NODES: No lymphadenopathy. PERITONEUM: No ascites. BLADDER: Unremarkable. PELVIC VISCERA: Uterus adherent to the ventral lower abdominal wall. ABDOMINAL AND PELVIC WALL: Unremarkable. OSSEOUS STRUCTURES: Mild multilevel degenerative thoracolumbar spondylosis, worst at L5-S1. CT/CT abdomen pelvis w IV con IMPRESSION: 1. No acute abnormality of the abdomen or pelvis. 2. Severe sigmoid-predominant colonic diverticulosis without evidence of acute diverticulitis. 3. Hepatomegaly. Dictated By: Que Martinez MD Prescription Management I considered prescription management with: Pain Medication ( oxycodone) and Other ( antiemetic ondansetron ODT) Discharge Plan Discharge Clinical Impression: Acute left flank pain, Nausea Patient Disposition: Home, Self-Care Additional Instructions: Your blood work today was unremarkable. Your blood work from 02/04/2024 revealed normal liver tests which is reassuring. The CT scan shows that you have a left kidney calyceal diverticulum with a small 2 mm stone in this pocket. It is possible the stone in the pocket may be causing your pain so it is important that you follow-up with the urologist Take Aleve 220 mg pills, 1 pill every 12 hours hours as needed for pain. For pain not relieved by Aleve take oxycodone 5 mg pills, 1 pill every 6 hours as needed for pain. Do not drive or work while taking this medication since they can cause sleepiness. Oxycodone is a narcotic medication that can be addicting. If you are concerned about addiction you can ask the pharmacist for less pills or do not get this prescription filled. Take Zofran ODT 4 mg pills, 1 pill dissolved in your mouth every 8 hours as needed for nausea and vomiting. The CT scan also shows that you have a large liver. I want you to follow-up with our plc controls engineer on-call to further evaluate this finding. You should stop drinking alcohol and do not take Tylenol. You also have diverticulosis which is not causing your pain. These are small pockets in your colon that can sometimes get infected but they do not look infected at this time. Follow-up with your doctor in 2 days. Please return to the emergency department if your symptoms get worse or if you develop any symptoms that are concerning to you. Prescriptions: New ondansetron 4 mg tablet,disintegrating 4 mg PO Q6-8H PRN (Reason: nausea and vomiting) Qty: 14 0RF oxycodone 5 mg tablet 5 mg PO Q6H PRN (Reason: pain) Qty: 10 0RF Rx Instructions: Patient may request partial refill; Partial Fill upon patient request. No Action tamsulosin [Flomax] 0.4 mg capsule 0.4 mg PO DAILY Qty: 14 0RF fluconazole 150 mg tablet 150 mg PO Q3D Qty: 1 0RF Rx Instructions: may repeat second dose 72 hrs after first dose if symptoms persist (1st dose given 01/24) phenazopyridine [Pyridium] 200 mg tablet 200 mg PO TID PRN (Reason: pain) Qty: 6 0RF fluconazole 150 mg tablet 150 mg PO Q3D 0 Days Qty: 2 0RF Rx Instructions: may repeat second dose 72 hrs after first dose if symptoms persist metronidazole 500 mg tablet 500 mg PO Q12H Qty: 14 0RF Referrals: Margareth Elena MD [Physician] - 1 week (Second ED visit, left flank pain, CT left renal calyceal diverticulum containing a 2mm calculus. No hydronephrosis or other urinary tract calculi identified.) Christian Garnett MD [Physician] - 2 weeks (Hepatomegaly of unclear etiology, normal LFTs) Stand Alone Forms: Work/School Release Interventions: ED Discharge Assessment Last Done: 02/06/24 15:26 Discharge Date/Time: 02/06/24 15:26 Print Language: Sinhala
[2024-02-06 12:00] VITALS: BP 132/52; PULSE 65; RESP 16; TEMP 36.7; O2SAT 96
[2024-02-06] MEDS: Ketorolac Tromethamine 15 MG/ML VIAL IVPUSH (12:17)
[2024-02-06] MEDS: ondansetron HCL 4 MG/2 ML VIAL IVPUSH (12:17)
--- NOTE | 2024-02-06 12:43 | PC.NURSE ---
Pt comes to ED for flank pain 11/07. Pt returns from CT and expresses displeasure for the lack of food provided. Explained to Pt that until imaging results are back protocol is to remain NPO in the event additional imaging or intervention is needed. Pt continued to express displeasure and states she would leave the ED abruptly and/or find a way to buy her own food. Discussed with provider and approval of gingerale and saltines given. Pt provided with gingerale and saltines and was pleased by this. CT results pending.
[2024-02-06 12:48] VITALS: BP 132/52; PULSE 65; RESP 16; TEMP 36.7; O2SAT 96
[2024-02-06 15:26] VITALS: BP 00/00; PULSE 76; RESP 18; TEMP -17.7; TEMP 0; O2SAT 95
== END 2024-02-06 15:26 | disposition home or self-care (01) ==
PROVIDERS: Emergency Provider Emergency Medicine Emergency Medical Services; PCP Nurse Practitioner Family
DX: R10.9 Unspecified abdominal pain (principal); R11.0 Nausea; Z20.2 Contact with and (suspected) exposure to infections with a predominantly sexual mode of transmission; Z79.899 Other long term (current) drug therapy
CPT/HCPCS: 36415; 74177; 80048; 81003; 81025; 85025; 96374; 96375; 99284; J1885; J2405

== ENCOUNTER 2024-02-09 10:47 | Outpatient (AMB) | payer OTHER, SELFPAY ==
[2024-02-09 10:46] VITALS: BP 130/70; BMI 44.6
--- NOTE | 2024-02-09 10:46 | MHC.OFFVIS ---
Vital Signs 02/09/24 10:46 Height 5 ft 4 in Weight 260 lb BMI 44.6 BP 130/70 Intake Visit Reasons: Vaginal itch Information Interpreted: clinical only Towboat Engineer: Towboat Engineer Present Allergies No Known Allergies Allergy (Verified 02/09/24 10:56) Is last menstrual period known: No HPI HPI Vaginal itch: Details: Patient is here because she is describing a vaginal itch and she has a little bit of a white discharge she says that she was in the emergency room twice in the told her that she had kidney stones and that she has to follow-up with urology and also Gastroenterology and she has fatty liver she says she was told that it was probably because of her drinking could she drinks heavy a couple of times a week since they told her about the fatty liver she has not been drinking and she has been doing better. She says she has a had periods since November or December. She said her mother went through menopause at age 49. She says she started using a bottle body wash or soap that she had that she had not opened and that is when she experienced the itching and it is more external than internal she said they did give her some medicine for yeast infection while she was there but when she went to the [facility] for what ever else was prescribed they would not give her any medication because they said that was not prescribed for 90 day supply so she did not get anything else she did not think that she got medication in the emergency room but when I reviewed with her that the records said that she did she did remember that she got shots while she was in their and that is what I was referring to. She says she knows that the STI screens were negative. [facility] Medical History Bipolar 1 disorder Anxiety Primary osteoarthritis of knees, bilateral Surgical History Hx of arthroscopy of right knee Tubal ligation status Previous section History of repair of anterior cruciate ligament of left knee (~2009) Family History Other Mental health disorder Substance use disorder Social History Household Members Other:: BF Housing: Apartment Alcohol intake: current Alcohol intake frequency: 0-2 drinks per day Alcohol type: beer Patient Tobacco Use Status: Current everyday Tobacco user Cigarettes Per Day: 5 e-Cigarette/Vaping Use: Never Used Second Hand Smoke Exposure: No Substance Use Type: Crack/Cocaine 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al status: employed 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[employer] Cognitive needs: No Hearing needs: No Vision needs: No Female Reproductive History Menstrual Age of Menarche: 12 Duration of menses: 3-5 days control method: permanent sterilization Total pregnancies: 5 Full term: 5 Number of Living Children: 4 Date of last pap smear: 06/12/21 (negative) Physical Exam Vital Signs: Last Vital Signs BP 130/70 02/09/24 10:46 BMI result Body Mass Index 44.6 Other: Normal external exam adipose tissue no lesions seen no abnormal external discharge her vagina is pink and moist and healthy appearing with healthy appearing mucosa there is a scant normal appearing white discharge that is consistent with luteal phase and does not appear consistent to this practitioners eyes as that that would be consistent with any bacterial vaginosis or yeast but we will await test results to see. Results Reviewed Results Reviewed: Name: Tricia Fernandez Age/Sex: 48/F : 1975 Unit#: [id number] Attend Dr: Slade Cruz MD Re01/25/24 Status: DEP Location: [facility] Disch: SPEC : [id number] ZARA: 01/25/24 STATUS: COMP REQ : [id number] RECD: 01/25/24 [facility] DR: Jeanie Olsen COMP: 01/25/24 ENTERED: 01/25/[address]: Physician,Unknown ORDERED: BV Panel Test Result Flag Reference TV PCR NOT DETECTED Not Detect BV PCR NEGATIVE Negative The BV organism targets of the Xpert Xpress MVP test can be commensal in women; Xpert Xpress MVP positive results for bacterial vaginosis should be considered in conjunction with other clinical and patient information to determine the disease status. Organisms that are not detected by the Xpert Xpress MVP test have also been reported to be associated with BV and aerobic vaginitis. The Xpert Xpress MVP test performance has not been evaluated in patients under the age of 14. Diana Grp PCR NOT DETECTED Not Detect Can gla-kru NOT DETECTED Not Detect END OF REPORT Assessment & Plan Assessment & Plan (1) Vaginal itching: Comment: Patient seems convinced she has something. the previous testing in the emergency room was negative. We will await testing to see if there is any yeast or BV to treat discharge appears within normal limits today, 02/09/2024. Code(s): N89.8 - Other specified noninflammatory disorders of vagina Category: Medical Plan Patient is here because she is describing a vaginal itch and she has a little bit of a white discharge she says that she was in the emergency room twice in the told her that she had kidney stones and that she has to follow-up with urology and also Gastroenterology and she has fatty liver she says she was told that it was probably because of her drinking could she drinks heavy a couple of times a week since they told her about the fatty liver she has not been drinking and she has been doing better. She says she has a had periods since November or December. She said her mother went through menopause at age 49. She says she started using a bottle body wash or soap that she had that she had not opened and that is when she experienced the itching and it is more external than internal she said they did give her some medicine for yeast infection while she was there but when she went to the [facility] for what ever else was prescribed they would not give her any medication because they said that was not prescribed for 90 day supply so she did not get anything else she did not think that she got medication in the emergency room but when I reviewed with her that the records said that she did she did remember that she got shots while she was in their and that is what I was referring to. She says she knows that the STI screens were negative. External vulvar exam within normal limits positive adipose noted no lesions or abnormal external discharge vagina is pink and moist and the mucosa is healthy appearing and there is a normal healthy appearing white discharge that is consistent with luteal phase and does not appear to this practitioners eyes consistent with yeast or BV. I told the patient that we would await the testing and at that patient said that she thought she might go somewhere else has she does not believe us anymore that were not telling her the straight answer and when I assured the patient that I was being 100% honest with her in my personal assessment and we would await the testing from the lab and you call her and treat her accordingly to any results she said that she did not trust the labs. We will await testing to see if there is any thing to treat testing today was done for gonorrhea chlamydia trichomoniasis Gardnerella and Diana. Discussed careful hand washing and discussed the challenges of changing soaps and shampoos and their effect on her skin. Coding Level of Care Code Est Pt Level 3 (19741) Diagnoses Vaginal itching N89.8
== END 2024-02-09 11:37 | disposition home or self-care (01) ==
PROVIDERS: PCP Nurse Practitioner Family; Visit Provider Advanced Practice Midwife
DX: N89.8 Other specified noninflammatory disorders of vagina (principal)
CPT/HCPCS: 99213

== ENCOUNTER 2024-02-09 10:47 | Outpatient (REF) | payer OTHER, SELFPAY ==
[2024-02-10 07:22] LABS: CT PCR NOT DETECTED (Not Detect.); NG PCR NOT DETECTED (Not Detect.)
[2024-02-10 09:28] LABS: Bacterial Vaginosis PCR NEGATIVE (Negative); Candida Group PCR NOT DETECTED (Not Detect); Candida glab krusei PCR NOT DETECTED (Not Detect); Trichomonas vaginalis PCR NOT DETECTED (Not Detect)
== END 2024-02-09 10:48 | disposition home or self-care (01) ==
LOC: HO.LAB 10:47
PROVIDERS: PCP Nurse Practitioner Family; Visit Provider Advanced Practice Midwife
DX: N89.8 Other specified noninflammatory disorders of vagina (principal)
CPT/HCPCS: 0352U; 87491; 87591; 99212

== ENCOUNTER 2024-03-15 10:20 | Outpatient (AMB) | payer OTHER, SELFPAY ==
--- NOTE | 2024-03-15 10:28 | A.OFFVIS_ITS ---
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 Last co testing in 06/21 was negative Last mammogram in 01/20 was BI-RADS 2 [facility] Medical History Bipolar 1 disorder Anxiety Primary osteoarthritis of knees, bilateral Surgical History Hx of arthroscopy of right knee Tubal ligation status Previous section History of repair of anterior cruciate ligament of left knee (~2009) Family History Other Mental health disorder Substance use disorder Social History Household Members Other:: BF Housing: Apartment Alcohol intake: current Alcohol intake frequency: 0-2 drinks per day Alcohol type: beer Patient Tobacco Use Status: Current everyday Tobacco user Cigarettes Per Day: 5 e-Cigarette/Vaping Use: Never Used Second Hand Smoke Exposure: No Substance Use Type: Crack/Cocaine 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al status: employed 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[employer], rt hand Cognitive needs: No Hearing needs: No Vision needs: No Female Reproductive History Menstrual Age of Menarche: 12 control method: permanent sterilization Review of Systems Const All systems reviewed & are unremarkable except as noted in HPI and below Reports as per HPI and Reports no additional complaints Card Reports as per HPI Resp Reports as per HPI GI Reports no additional complaints Reports no additional complaints Physical Exam Vital Signs: BMI result Body Mass Index 44.3 Const General: cooperative, healthy appearing and comfortable Chest Chest palpation & inspection: normal inspection of the chest and normal palpation of entire chest wall Breast/axilla inspection: normal inspection of the breasts and normal inspection of the axillae Breast/axilla palpation: normal palpation of the breasts, normal palpation of the axillae and no axillary lymphadenopathy Resp Effort & Inspection: normal respiratory effort Auscultation: clear to auscultation bilaterally Percussion: percussion normal Cardio Palpation: normal PMI Rate: regular rate Rhythm: regular rhythm Heart sounds: no murmurs and no rubs Peripheral pulses: Peripheral pulses 2+ throughout GI Inspection: Yes normal to inspection Palpation (GI): Soft to palpation, nontender, no guarding, not rigid and No hepatosplenomegaly present Percussion: Yes normal to percussion Auscultation: normal bowel sounds Rectal Exam - Female: deferred General: Yes bladder normal to palpation External Female Exam: No lesion Speculum Exam - Vagina: normal appearance of the vagina, normal palpation, normal vaginal discharge and not erythematous Speculum Exam - Cervix: normal appearance of the cervix and normal palpation Bimanual exam- vagina & uterus: normal bimanual exam, normal palpation, uterine size normal, bladder normal to palpation, consistency normal and normal palpation Bimanual Exam- Adnexa, other: normal adnexae, no masses and no tenderness Results AMB Test Urine AMB Test Urine Negative Last Edit by Clarisse Mendoza CMA on 10:38 Assessment & Plan Assessment & Plan (1) Abnormal uterine bleeding: Code(s): N93.9 - Abnormal uterine and vaginal bleeding, unspecified Category: Medical Plan: Screening mammogram ordered. Urine test done in the office was negative. GC and chlamydia taken CB C, TSH, FSH/LH, prolactin, HCG, and pelvic ultrasound ordered. Discussed with the patient the different causes of abnormal bleeding including thyroid disorders, uterine and ovarian pathology, endometrial hyperplasia, carcinoma and other potential causes. Discussed with the patient the work up including CBC (to r/o anemia), TSH, prolactin, pelvic Ultrasound, endometrial biopsy to r/o endometrial pathology. All questions answered and the patient verbalized understanding. Instructed the patient to schedule an appointment for an endometrial biopsy in 2 weeks. Orders: Orders AMB HCG Urine Test Today Z32.02 - Encounter for test, result negative Prolactin Today N93.9 - Abnormal uterine and vaginal bleeding, unspecified Complete Blood Count no Diff Today N93.9 - Abnormal uterine and vaginal bleeding, unspecified HCG Quantitative Today N93.9 - Abnormal uterine and vaginal bleeding, unspecified Follicle Stimulating Hormone Today N93.9 - Abnormal uterine and vaginal bleeding, unspecified Lutenizing Hormone Today N93.9 - Abnormal uterine and vaginal bleeding, unspecified US pelvic and transvaginal Today N93.9 - Abnormal uterine and vaginal bleeding, unspecified MM screening mammo BI Today Z12.31 - Encounter for screening mammogram for malignant neoplasm of breast Coding Level of Care Code Est Pt Level 3 (34615) Diagnoses Abnormal uterine bleeding N93.9
[2024-03-15 10:29] VITALS: BP 126/74; BMI 44.3
== END 2024-03-15 10:56 | disposition home or self-care (01) ==
LOC: HO.HWS 10:20
PROVIDERS: PCP Nurse Practitioner Family; Visit Provider Obstetrics & Gynecology
DX: N93.9 Abnormal uterine and vaginal bleeding, unspecified (principal); Z32.02 Encounter for pregnancy test, result negative
CPT/HCPCS: 99213

== ENCOUNTER 2024-03-15 10:20 | Outpatient (REF) | payer OTHER, SELFPAY ==
[2024-03-16 04:38] LABS: CT PCR NOT DETECTED (Not Detect.); NG PCR NOT DETECTED (Not Detect.)
== END 2024-03-15 10:21 | disposition home or self-care (01) ==
LOC: HO.LNP 10:20
PROVIDERS: PCP Nurse Practitioner Family; Visit Provider Obstetrics & Gynecology
DX: N93.9 Abnormal uterine and vaginal bleeding, unspecified (principal)
CPT/HCPCS: 81025; 87491; 87591; 99212

== ENCOUNTER 2024-04-13 13:03 | Outpatient (REF) | payer OTHER, SELFPAY | END 2024-04-13 13:04 | disposition home or self-care (01) | LOC: HO.HMGCX 13:03 | PROVIDERS: PCP Nurse Practitioner Family; Visit Provider Obstetrics & Gynecology | DX: N93.9 Abnormal uterine and vaginal bleeding, unspecified (principal) | CPT/HCPCS: 76830; 76856 ==

== ENCOUNTER 2024-04-21 14:09 | Outpatient (AMB) | payer OTHER, SELFPAY ==
--- NOTE | 2024-04-21 14:19 | MHC.OFFVIS ---
Intake Visit Reasons: nephrolithiasis Intake Note: New patient is present for Nephrolithiasis [facility] [place] Urology Med: None Antibiotic Allergy: None Blood Thinner: None Family HX: Bladder Cancer? no Prostate Cancer?no Medical Record Clerk Required: No Accompanied by: Self / Same As Patient Allergies No Known Allergies Allergy (Verified 04/21/24 14:20) HPI Comments Details: Tricia is a pleasant female. Seen in [place] [facility]. Here for the following urologic conditions - nephrolithiasis Discussed imaging results Incongruent result with stone on ultrasound but not CT Discussed repeating imaging in six-month If normal can follow up p.r.n. Nephrolithiasis Initial presentation [place] [facility] - lower left back pain Imaging - 01/21 renal ultrasound left 1 cm stone - 02/21 CT no stone seen Laboratories 02/21 calcium 8.8 PFSH Medical History Bipolar 1 disorder Anxiety Primary osteoarthritis of knees, bilateral Surgical History Hx of arthroscopy of right knee Tubal ligation status Previous section History of repair of anterior cruciate ligament of left knee (~2009) Family History Other Mental health disorder Substance use disorder Social History Household Members Other:: BF Housing: Apartment Alcohol intake: current Alcohol intake frequency: 0-2 drinks per day Alcohol type: beer Patient Tobacco Use Status: Current everyday Tobacco user Cigarettes Per Day: 5 e-Cigarette/Vaping Use: Never Used Second Hand Smoke Exposure: No Substance Use Type: Crack/Cocaine 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al status: employed 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[employer], [employer] Cognitive needs: No Hearing needs: No Vision needs: No Female Reproductive History Menstrual Age of Menarche: 12 Review of Systems Const Denies chills and Denies fever(s) Card Reports no additional complaints and Denies syncope Resp Denies cough GI Denies abdominal pain and Denies heartburn Reports as per HPI and Denies change in libido Neuro Denies syncope Psych Denies change in libido Endo Denies change in libido Physical Exam Const General: cooperative, healthy appearing, comfortable and no acute distress Orientation/consciousness: patient oriented x3 HEENT Face and sinus: Yes normal facial exam Mouth: moist mucous membranes Neck Neck: Yes normal visual inspection, Yes full ROM and Yes trachea midline Chest Chest palpation & inspection: normal inspection of the chest Resp Effort & Inspection: normal respiratory effort, able to speak in complete sentences and no respiratory distress GI Inspection: Yes normal to inspection Back/Spine/Pelvis Cervical Spine: normal cervical lordosis Thoracic/Lumbar Spine: thoracic and lumbar spine normal to inspection Skin General skin exam: no rashes or lesions noted Neuro General: patient oriented x3, gait normal, tone normal and moves all extremities Extrem General: Yes normal to inspection and Yes capillary refill normal Assessment & Plan Assessment & Plan (1) Nephrolithiasis: Code(s): N20.0 - Calculus of kidney Category: Medical Plan Six-month follow-up ultrasound nurse-practitioner Orders: Orders US renal BI 6 Months N20.0 - Calculus of kidney Patient Instructions: Imaging studies, laboratory and physical exam results were discussed and reviewed in detail. No major barriers to patient understanding were identified. An opportunity to ask questions regarding the treatment plan was provided. All questions were answered. The patient expressed understanding and agreement with the above treatment plan. The patient is aware they should contact our office by phone for worsening of their current condition or the appearance of new urologic symptoms. Compliance is encouraged with any medications and followup testing that is ordered. It is a privilege to participate in the urologic care of your patient. If you have any questions or concerns regarding treatment for the above conditions, or other urologic issues, please do not hesitate to contact me. The office telephone contact is [phone]. This note is constructed using voice recognition software. While every effort has been made to ensure accuracy arc furnace operator errors may have been included. Yours sincerely, Dr Micheal Valdivia MD, [facility] - Urology Providers of Expert, Compassionate Care for the Genitourinary System Coding Level of Care Code New Pt Level 3 (40321) Diagnoses Nephrolithiasis N20.0
== END 2024-04-21 14:35 | disposition home or self-care (01) ==
PROVIDERS: Visit Provider Urology
DX: N20.0 Calculus of kidney (principal)
CPT/HCPCS: 99203

== ENCOUNTER → 2024-04-21 14:09 | Outpatient (BNVA) | payer OTHER, SELFPAY | PROVIDERS: Visit Provider Urology | DX: N20.0 Calculus of kidney (principal) | CPT/HCPCS: 99202 ==

== ENCOUNTER 2024-05-04 13:31 | Outpatient (REF) | payer OTHER, SELFPAY ==
[2024-05-05 06:36] LABS: CT PCR NOT DETECTED (Not Detect.); NG PCR NOT DETECTED (Not Detect.)
[2024-05-05 08:35] LABS: Bacterial Vaginosis PCR NEGATIVE (Negative); Candida Group PCR NOT DETECTED (Not Detect); Candida glab krusei PCR NOT DETECTED (Not Detect); Trichomonas vaginalis PCR NOT DETECTED (Not Detect)
== END 2024-05-04 13:32 | disposition home or self-care (01) ==
LOC: HO.LAB 13:31
PROVIDERS: Visit Provider Advanced Practice Midwife
DX: N89.8 Other specified noninflammatory disorders of vagina (principal)
CPT/HCPCS: 0352U; 87491; 87591; 99212

== ENCOUNTER 2024-05-04 13:31 | Outpatient (AMB) | payer OTHER, SELFPAY ==
[2024-05-04 13:38] VITALS: BP 136/78; BMI 45.0
--- NOTE | 2024-05-04 13:38 | A.OFFVIS_ITS ---
Vital Signs 05/04/24 13:38 Height 5 ft 4 in Weight 262 lb BMI 45.0 BP 136/78 Intake Visit Reasons: ? infection Enamel Shader Required: No Information Interpreted: clinical only Tapering Machine Operator: Tapering Machine Operator Present Allergies No Known Allergies Allergy (Verified 05/04/24 13:39) Medication List - Last Reconciled 05/04/24 by Gabbie Joyce CNM clonazepam 0.25 mg PO BEDTIME clonidine HCl 0.1 mg PO BEDTIME ondansetron 4 mg PO Q6-8H PRN risperidone (Risperdal) 1 mg PO BID Is last menstrual period known: Yes Last menstrual period: 04/13/24 (?) HPI HPI ? 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 feels she has had vaginal itching the last couple of days she has been checked a number of times for different kinds of infection and most recent tests have all been negative. She had a pelvic ultrasound and is awaiting a follow-up visit with Dr. Farley in the coming week or weeks for an endometrial biopsy for abnormal bleeding. She is sexually active but no worries about STIs but is open to whenever tests we can do to determine why she said she is itching. [facility] Medical History Bipolar 1 disorder Anxiety Primary osteoarthritis of knees, bilateral Surgical History Hx of arthroscopy of right knee Tubal ligation status Previous section History of repair of anterior cruciate ligament of left knee (~2009) Family History Other Mental health disorder Substance use disorder Social History Household Members Other:: BF Housing: Apartment Alcohol intake: current Alcohol intake frequency: 0-2 drinks per day Alcohol type: beer Patient Tobacco Use Status: Current everyday Tobacco user Cigarettes Per Day: 5 e-Cigarette/Vaping Use: Never Used Second Hand Smoke Exposure: No Substance Use Type: Crack/Cocaine 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al status: employed 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[employer], 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 Cognitive needs: No Hearing needs: No Vision needs: No Female Reproductive History Menstrual Age of Menarche: 12 Date of last menstrual period: 04/13/24 (?) control method: permanent sterilization Total pregnancies: 5 Full term: 4 Date of last pap smear: 06/12/21 (negative) Physical Exam Vital Signs: Last Vital Signs BP 136/78 05/04/24 13:38 BMI result Body Mass Index 45.0 Other: Vulva is within normal limits no abnormal discharge seen or noted no abnormal discharge noted in the vagina there is a little bit of dryness at the external vulva but that is within normal limits as well cervix was difficult to visualize but the entire vagina vulva and edge of cervix appeared within with normal scant white discharge. External Female Exam: normal external appearance and normal appearance of the urethra Speculum Exam - Vagina: normal appearance of the vagina and normal vaginal discharge Speculum Exam - Cervix: normal appearance of the cervix and Cervical os closed Results Reviewed Results Reviewed: RUN: 05/04/24 1351 PAGE 1 [facility] [address] [place] [id number] Lead Ruby On Rails Developer: Chris Beckham M.D. Specimen Inquiry Name: Tricia Fernandez Age/Sex: 48/F : 1975 Unit#: [id number] Attend Dr: Pritesh Farley MD Re03/15/24 Status: DEP REF Location: [facility] Disch: SPEC : [id number] ZARA: 03/15/24 STATUS: COMP REQ : [id number] RECD: 03/15/[address] [facility] DR: Pritesh Farley MD COMP: 03/16/248 ENTERED: 03/15/[address] [facility] [address]: Albino Watts [facility] ORDERED: CT NG by PCR QUERIES: CT NG Source: Vaginal Test Result Flag Reference CT PCR NOT DETECTED Not Detect. A not detected test result does not exclude the possibility of infection because test results can be affected by improper specimen collection, concurrent antibiotic therapy, or the number of organisms in the specimen which may be below the sensitivity of the test. As with many diagnostic tests, results from the Xpert CT/NG assay should be interpreted in conjunction with other laboratory and clinical data available to the clinician. Xpert CT/NG performance has not been evaluated in patients less than 14 years of age. The assay should not be used for the evaluation of suspected sexual abuse or for other medico-legal indications. Additional testing is recommended in any circumstance when false positive or false negative results could lead to adverse medical, social or psychological consequences. NG PCR NOT DETECTED Not Detect. A not detected test result does not exclude the possibility of infection because test results can be affected by improper specimen collection, concurrent antibiotic therapy, or the number of organisms in the specimen which may be below the sensitivity of the test. As with many diagnostic tests, results from the Xpert CT/NG assay should be interpreted in conjunction with other laboratory and clinical data available to the clinician. Xpert CT/NG performance has not been evaluated in patients less than 14 years of age. The assay should not be used for the evaluation of suspected sexual abuse or for other medico-legal indications. Additional testing is recommended in any circumstance when false positive or false negative results could lead to adverse medical, social or psychological consequences. Name: Tricia Fernandez Age/Sex: 48/F [facility] 1975 [id number]#: [id number] Attend Dr: Gabbie Joyce CNM Re02/09/24 Status: DEP [facility]F [facility] Disch: SPEC : [id number] ZARA: 02/09/24-UNK STATUS: COMP REQ : [id number] RECD: 02/09/[address] [facility] [address]: Gabbie Joyce CNM COMP: 02/10/24 ENTERED: 02/09/[address] [facility] [address]: Albino Watts [facility] ORDERED: BV Panel Test Result Flag Reference TV PCR NOT DETECTED Not Detect BV PCR NEGATIVE Negative The BV organism targets of the Xpert Xpress MVP test can be commensal in women; Xpert Xpress MVP positive results for bacterial vaginosis should be considered in conjunction with other clinical and patient information to determine the disease status. Organisms that are not detected by the Xpert Xpress MVP test have also been reported to be associated with BV and aerobic vaginitis. The Xpert Xpress MVP test performance has not been evaluated in patients under the age of 14. Diana Grp PCR NOT DETECTED Not Detect Can gla-kru NOT DETECTED Not Detect Assessment & Plan Assessment & Plan (1) Vaginal itching: Comment: Patient seems convinced she has something. the previous testing in the emergency room was negative. We will await testing to see if there is any yeast or BV to treat discharge appears within normal limits today, 02/09/2024. Again normal exam 05/04/2024 await testing results. Code(s): N89.8 - Other specified noninflammatory disorders of vagina Category: Medical Plan Await test results to see if there is anything to treat in the meantime if taking a simple shower relieves her itching and that is a fine thing to do and may indicate that she does not have to treat after all also discussed cortez menopausal vaginal dryness which can contribute to some vaginal itching. She says she has not been on antibiotics either. Coding Level of Care Code Est Pt Level 3 (30510) Diagnoses Vaginal itching N89.8
== END 2024-05-04 14:08 | disposition home or self-care (01) ==
LOC: HO.HWSM 13:31
PROVIDERS: Visit Provider Advanced Practice Midwife
DX: N89.8 Other specified noninflammatory disorders of vagina (principal)
CPT/HCPCS: 99213

== ENCOUNTER 2024-05-18 11:17 | Outpatient (REF) | payer OTHER, SELFPAY ==
[2024-05-18 16:57] LABS: Bacterial Vaginosis PCR NEGATIVE (Negative); Candida Group PCR NOT DETECTED (Not Detect); Candida glab krusei PCR NOT DETECTED (Not Detect); Trichomonas vaginalis PCR NOT DETECTED (Not Detect)
[2024-05-18 17:29] LABS: CT PCR NOT DETECTED (Not Detect.); NG PCR NOT DETECTED (Not Detect.)
== END 2024-05-18 11:18 | disposition home or self-care (01) ==
LOC: HO.LNP 11:17
PROVIDERS: Visit Provider Obstetrics & Gynecology
DX: Z20.2 Contact with and (suspected) exposure to infections with a predominantly sexual mode of transmission (principal); Z11.3 Encounter for screening for infections with a predominantly sexual mode of transmission
CPT/HCPCS: 0352U; 87491; 87591; 99212

== ENCOUNTER 2024-05-18 11:17 | Outpatient (AMB) | payer OTHER, SELFPAY ==
--- NOTE | 2024-05-18 11:24 | MHC.OFFVIS ---
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 ([place]) Accompanied by: Self / Same As Patient Allergies No Known Allergies Allergy (Verified 05/18/24 11:24) HPI Comments Details: Presenting complaining of vulvovaginal itching with no associated foul odor, in addition the patient is requesting STD screen [facility] Medical History Bipolar 1 disorder Anxiety Primary osteoarthritis of knees, bilateral Surgical History Hx of arthroscopy of right knee Tubal ligation status Previous section History of repair of anterior cruciate ligament of left knee (~2009) Family History Other Mental health disorder Substance use disorder Social History Household Members Other:: BF Housing: Apartment Alcohol intake: current Alcohol intake frequency: 0-2 drinks per day Alcohol type: beer Patient Tobacco Use Status: Current everyday Tobacco user Cigarettes Per Day: 5 e-Cigarette/Vaping Use: Never Used Second Hand Smoke Exposure: No Substance Use Type: Crack/Cocaine 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al status: employed 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[employer] Cognitive needs: No Hearing needs: No Vision needs: No Female Reproductive History Menstrual Age of Menarche: 12 Review of Systems Const All systems reviewed & are unremarkable except as noted in HPI and below Physical Exam General: Yes no CVA tenderness External Female Exam: normal external appearance and normal appearance of the urethra Speculum Exam - Vagina: normal appearance of the vagina, normal palpation, no lesions and no masses Speculum Exam - Cervix: normal appearance of the cervix, normal palpation, no lesions, no masses and nontender Bimanual exam- vagina & uterus: normal bimanual exam, normal palpation, uterine size normal, normal palpation, uterine shape normal, No Cervical tenderness present and non-tender Bimanual Exam- Adnexa, other: normal adnexae Back/Spine/Pelvis Back: no CVA tenderness Assessment & Plan Assessment & Plan (1) Screen for STD (sexually transmitted disease): Code(s): Z11.3 - Encounter for screening for infections with a predominantly sexual mode of transmission Category: Medical Plan: STD screening tests done includes: BV panel for trichomonas, GC/CT will send patient for serology std screening for HIV, RPR, Hep b s Ag, HepC Ab. Instructions given the patient to schedule a follow-up appointment for repeat serology screen in 6 months for possible false negatives. (2) Vaginitis: Code(s): N76.0 - Acute vaginitis Category: Medical Plan: GC/CT, Bacterial Vaginosis panel taken, Terazol 0.8% q.h.s. for 3 days was sent to the patient's pharmacy. The patient was instructed to call if symptoms don't improve in 48 hours. Orders: Orders Syphilis Screen Today Z20.2 - Contact with and (suspected) exposure to infections with a predominantly sexual mode of transmission Hepatitis C Antibody Today Z20.2 - Contact with and (suspected) exposure to infections with a predominantly sexual mode of transmission Hepatitis B Surface Antigen Today Z20.2 - Contact with and (suspected) exposure to infections with a predominantly sexual mode of transmission HIV Ab/Ag Today Z20.2 - Contact with and (suspected) exposure to infections with a predominantly sexual mode of transmission Medications: New terconazole 0.8% 1 appful vaginal BEDTIME 3 days 20 grams 0RF Coding Level of Care Code Est Pt Level 3 (85668) Diagnoses Screen for STD (sexually transmitted disease) Z11.3 Vaginitis N76.0
== END 2024-05-18 11:34 | disposition home or self-care (01) ==
LOC: HO.HWS 11:17
PROVIDERS: Visit Provider Obstetrics & Gynecology
DX: Z11.3 Encounter for screening for infections with a predominantly sexual mode of transmission (principal); N76.0 Acute vaginitis
CPT/HCPCS: 99213

== ENCOUNTER 2024-05-19 11:38 | Outpatient (REF) | payer OTHER, SELFPAY ==
[2024-05-19 13:28] LABS: Hematocrit 37.7 % (37.0-47.0); Mean Corpuscular HGB Conc 34.5 g/dl (31.0-35.0); Mean Corpuscular Hemoglobin 32.9 pg (27.0-33.0); Mean Corpuscular Volume 95.4 fL (80.0-98.0); Mean Platelet Volume 9.4 fL (9.4-12.3); Platelet Count 355 X10*3/uL (160-400); Red Blood Count 3.95 X10*6/uL (4.20-5.50); Red Cell Distribution Width 13.3 % (11.0-16.0); White Blood Count 7.9 X10*3/uL (4.8-10.8)
[2024-05-19 14:06] LABS: HCG Quantitative < 2 mIU/mL
[2024-05-20 04:08] LABS: Syphilis Screen Nonreactive (Nonreactive)
[2024-05-20 06:00] LABS: HBsAGNum1 0.33 S/CO (0.00-0.99); HIV AB/AG Nonreactive (Nonreactive); HIV Num 1 0.05 S/CO (0.00-0.99); Hepatitis B Surface Antigen Negative (Negative); ~HepC Num1 0.17 S/CO (0.00-0.79); ~Hepatitis C Antibody Nonreactive (Nonreactive)
[2024-05-21 09:28] LABS: Follicle Stimulating Hormone 20.8 mIU/mL; Lutenizing Hormone 15.7 mIU/mL; Prolactin 7.6 ng/mL
== END 2024-05-19 11:39 | disposition home or self-care (01) ==
LOC: HO.HMGCLDS 11:38
PROVIDERS: PCP Nurse Practitioner Family; Visit Provider Obstetrics & Gynecology
DX: N93.9 Abnormal uterine and vaginal bleeding, unspecified (principal); Z20.2 Contact with and (suspected) exposure to infections with a predominantly sexual mode of transmission
CPT/HCPCS: 36415; 83001; 83002; 84146; 84702; 85027; 86780; 86803; 87340; 87389

== ENCOUNTER 2024-07-20 07:33 | Outpatient (AMB) | payer OTHER, SELFPAY ==
--- OUTSIDE RECORDS SUMMARY | 2024-07-20 07:35 | XMS_ITS | Clinical Summary ---
Author Organization Unknown Care Team Providers Care Fashion Coordinator Name Role Phone OLIMPIA GUALLPA, KRISTI Unavailable Unavailab archie QUINONEZ RN, CRISTINE Unavailable Unavailable Payers Payer Name Policy Type Policy Number Effective Date Expira tion Date [facility] [place] [id number] [place] [id number] Problems Condition Name Condition Details Condition Category Status Onset Date Resolution Date Last Treatment Date Treating Clinician Comments OTHER BIPOLAR DISORDER Active 06-27 00:00: 00 Allergies, Adverse Reactions, Alerts Allergy Name Allergy Type Status Severity Reaction(s) Onset Date Inactive Date Treating Clinician Comments NKA Propensity to adverse reactions Active 2024-07 10:11:5 4 Medications Ordered Medication Name Filled Medication Name Start Date Stop Date Current Medication? Ordering Clinician Indication Dosage Frequency Signature (SIG) Comments Components clonazepam 0.5 mg tablet 07-07 00:00: 00 Yes [id number] 1 tablet 2 TIMES DAILY 1 tablet 2 TIMES DAILY (route: oral) Med Classific ation: Central Nervous System Agents clonidine HCl 0.1 mg tablet 07-07 00:00: 00 Yes [id number] 1 tablet BEDTIME 1 tablet BEDTIME (route: oral) Med Classific ation: Cardiovas cular Therapy Agents hydroxyzine HCl 25 mg tablet 07-07 00:00: 00 Yes [id number] 1-2 tablet DAILY 1-2 tablet DAILY (route: oral) Med Classific ation: Central Nervous System Agents risperidone 1 mg tablet 07-07 00:00: 00 Yes [id number] 1 tablet EVERY AM 1 tablet EVERY AM (route: oral) Med Classific ation: Central Nervous System Agents risperidone 2 mg tablet 07-07 00:00: 00 Yes [id number] 1 tablet BEDTIME 1 tablet BEDTIME (route: oral) Med Classific ation: Central Nervous System Agents Plan of Treatment Planned Activity Planned Date Details Comments Future Scheduled Test SKILLED NU RSE TO EVALUATE PATIENT, IDENTIFY PRIMARY AND CO-MORBID CONDITIONS CODED PER CODING GUIDELINES, AND DEVELOP PATIENT SPECIFIC PLAN OF CARE THAT INCLUDES PATIENT GOAL FOR HOME HEALTH. [code = SKILLED NURSE TO EVALUATE PATIENT, IDENTIFY PRIMARY AND CO-MORBID CONDITIONS CODED PER CODING GUIDELINES, AND DEVELOP PATIENT SPECIFIC PLAN OF CARE THAT INCLUDES PATIENT GOAL FOR HOME HEALTH.] Future Scheduled Test SKILLED NU RSE TO O/A OF PATIENTS MENTAL/BEHAVIORAL STATUS, ASSESS VITAL SIGNS NEEDED OR REQUESTED, ALLOW 2 PRNS FOR MEDICATION MANAGEMENT. [code = SKILLED NURSE TO O/A OF PATIENTS MENTAL/BEHAVIORAL STATUS, ASSESS VITAL SIGNS NEEDED OR REQUESTED, ALLOW 2 PRNS FOR MEDICATION MANAGEMENT.] Future Scheduled Test SKILLED NU RSE WILL MAINTAIN SITUATIONAL AWARENESS FOR SAFETY AND WILL NOTIFY CLINICAL AEROLOGIST AND PHYSICIAN/PROVIDER WITH ANY CHANGE IN CONDITION. [code = SKILLED NURSE WILL MAINTAIN SITUATIONAL AWARENESS FOR SAFETY AND WILL NOTIFY CLINICAL AEROLOGIST AND PHYSICIAN/PROVIDER WITH ANY CHANGE IN CONDITION.] Future Scheduled Test SKILLED NU RSE TO ADMINISTER MEDICATIONS 3X PER WEEK AND PRE-POUR MEDICATIONS UNTIL THE NEXT VISIT PER MEDICATION LIST. [code = SKILLED NURSE TO ADMINISTER MEDICATIONS 3X PER WEEK AND PRE-POUR MEDICATIONS UNTIL THE NEXT VISIT PER MEDICATION LIST.] Future Scheduled Test SKILLED NU RSE FOR O/A AND SKILLED TEACHING RELATED TO MANAGEMENT OF DEPRESSIVE SYMPTOMS AND/OR DEPRESSION. SN TO REPORT SIGNIFICANT CHANGE IN DEPRESSIVE SYMPTOMS TO CLINICAL PROVIDER FOR EARLY INTERVENTION. [code = SKILLED NURSE FOR O/A AND SKILLED TEACHING RELATED TO MANAGEMENT OF DEPRESSIVE SYMPTOMS AND/OR DEPRESSION. SN TO REPORT SIGNIFICANT CHANGE IN DEPRESSIVE SYMPTOMS TO CLINICAL PROVIDER FOR EARLY INTERVENTION.] Future Scheduled Test SKILLED NU RSE FOR O/A AND SKILLED TEACHING OF COPING SKILLS TO MANAGE ANXIETY AND MAINTAIN SAFETY. [code = SKILLED NURSE FOR O/A AND SKILLED TEACHING OF COPING SKILLS TO MANAGE ANXIETY AND MAINTAIN SAFETY.] Future Scheduled Test SKILLED NU RSE FOR O/A OF ALTERED MOOD [code = SKILLED NURSE FOR O/A OF ALTERED MOOD] Future Scheduled Test SKILLED NU RSE FOR O/A OF CLIENT'S SLEEP PATTERNS. MAY TEACH INTERVENTIONS R/T ACQUIRING IMPROVED REST [code = SKILLED NURSE FOR O/A OF CLIENT'S SLEEP PATTERNS. MAY TEACH INTERVENTIONS R/T ACQUIRING IMPROVED REST] Future Scheduled Test SKILLED NU RSE TO ASSESS PATIENTS PSYCHOSOCIAL STATUS TO IDENTIFY POTENTIAL ISSUES THAT MAY COMPLICATE THE PROVISION OF THE PLAN OF CARE INCLUDING THE PATIENTS ABILITY TO ACCESS COMMUNITY RESOURCES AND PSYCHOSOCIAL SUPPORT SERVICES. [code = SKILLED NURSE TO ASSESS PATIENTS PSYCHOSOCIAL STATUS TO IDENTIFY POTENTIAL ISSUES THAT MAY COMPLICATE THE PROVISION OF THE PLAN OF CARE INCLUDING THE PATIENTS ABILITY TO ACCESS COMMUNITY RESOURCES AND PSYCHOSOCIAL SUPPORT SERVICES.] Future Scheduled Test SKILLED NU RSE FOR O/A OF CLIENT'S CURRENT DEGREE OF HOPELESSNESS AND PROVIDE THERAPEUTIC INTERVENTIONS AND TEACHING DESIGNED TO ENHANCE THE CLIENT'S WELL BEING. [code = SKILLED NURSE FOR O/A OF CLIENT'S CURRENT DEGREE OF HOPELESSNESS AND PROVIDE THERAPEUTIC INTERVENTIONS AND TEACHING DESIGNED TO ENHANCE THE CLIENT'S WELL BEING.] Future Scheduled Test MEDICATION S WILL BE HELD AND STORED IN LOCKBOX [code = MEDICATIONS WILL BE HELD AND STORED IN LOCKBOX] Future Scheduled Test SKILLED NU RSE MAY PICKUP AND TRANSPORT MEDICATIONS [code = SKILLED NURSE MAY PICKUP AND TRANSPORT MEDICATIONS] Goal Patient Goal - [facility] PRO LES Goal Provider Goal - A PLAN OF CARE WILL BE ESTABLISHED THAT MEETS PATIENT'S LONGTERM NEEDS AND INCLUDES PATIENT GOAL FOR HOME HEALTH. Goal Provider Goal - ALTERED MENTAL/BEHAVIORAL STATUS WILL BE IDENTIFIED PROMPTLY AND INTERVENTION INITIATED QUICKLY TO MINIMIZE ASSOCIATED RISKS THROUGHOUT CERTIFICATION PERIOD. Goal Provider Goal - PATIENT WILL REMAIN SAFE IN THE COMMUNITY AND WILL BE FREE OF DANGER TO SELF AND OTHERS THROUGHOUT THE CERTIFICATION PERIOD. Goal Provider Goal - PATIENT WILL COMPLY WITH MEDICATION WHEN SKILLED NURSE ADMINISTERS AND PRE-POURS MEDICATION THROUGHOUT CERTIFICATION PERIOD. Goal Provider Goal - PATIENT WILL REMAIN SAFE WITHOUT DECOMPENSATION IN DEPRESSIVE CONDITION, WHILE MAINTAINING OPTIMAL LEVEL OF MENTAL HEALTH AND WELL BEING THROUGHOUT CERTIFICATION PERIOD. Goal Provider Goal - PATIENT WILL BE ABLE TO PERFORM DAILY FUNCTIONS AND HAVE OPTIMAL IMPROVEMENT IN LEVEL OF ANXIETY THROUGHOUT CERTIFICATION PERIOD. Goal Provider Goal - PATIENT WILL BE ABLE TO PERFORM DAILY FUNCTIONS AND HAVE OPTIMAL IMPROVEMENT IN MOOD STABILITY THROUGHOUT CERTIFICATION PERIOD. Goal Provider Goal - PATIENT WILL REPORT AT LEAST 6-8 HOURS A NIGHT, RESTFUL SLEEP PATTERNS ACHIEVED USING THERAPEUTIC INTERVENTIONS BEFORE THE END OF THE CERTIFICATION PERIOD. Goal Provider Goal - PSYCHOSOCIAL NEEDS WILL BE IDENTIFIED AND PLAN IMPLEMENTED TO MINIMIZE RISK THROUGHOUT CERTIFICATION PERIOD. Goal Provider Goal - PATIENT WILL VERBALIZE OWN ASSOCIATION OF FEELINGS OF HOPELESSNESS, AND 3 THERAPEUTIC TECHNIQUES TO DECREASE THESE FEELINGS BY THE END OF THIS CERTIFICATION. Goal Provider Goal - MEDICATION WILL BE STORED IN LOCKBOX FOR SAFETY. Goal Provider Goal - SKILLED NURSE PICKED UP AND TRANSPORTED MEDICATIONS FOR SAFETY. Encounters Start Date/Time End Date/Time Encounter Type Admission Type Attending [facility] Care Department Encounter ID Discharge Date Discharge Status Discharge Condition Discharge Reason Percent Goals Met 2024-07-07 00:00:00 2024-09-04 00:00:00 Outpatient NEW ADMISSION CRISTINE QUINONEZ [facility] [id number] 16.67
--- NOTE | 2024-07-20 07:36 | MHC.OFFVIS ---
Intake Visit Reasons: EMB/ u/s results Centrifugal Separator Required: No Information Interpreted: non-clinical & clinical Casework Manager: Casework Manager Present (Clarisse Mendoza HEDY) Accompanied by: Self / Same As Patient Allergies No Known Allergies Allergy (Verified 07/20/24 07:48) Is last menstrual period known: Yes Last menstrual period: 03/28/20 Post menopausal: No Patient : No Do you need a note to return to daycare/school/sports/work: Yes (for surgery on wednesday) HPI Comments Details: Presenting for EMB [facility] Medical History Bipolar 1 disorder Anxiety Primary osteoarthritis of knees, bilateral Surgical History Hx of arthroscopy of right knee Tubal ligation status Previous section History of repair of anterior cruciate ligament of left knee (~2009) Family History Other Mental health disorder Substance use disorder Social History Household Members Other:: BF Housing: Apartment Alcohol intake: current Alcohol intake frequency: 0-2 drinks per day Alcohol type: beer Patient Tobacco Use Status: Current everyday Tobacco user Cigarettes Per Day: 5 e-Cigarette/Vaping Use: Never Used Second Hand Smoke Exposure: No Substance Use Type: Crack/Cocaine 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al status: employed 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[employer], rt hand Cognitive needs: No Hearing needs: No Vision needs: No Female Reproductive History Menstrual Age of Menarche: 12 Date of last menstrual period: 03/28/20 Total pregnancies: 2 Full term: 2 Review of Systems Const All systems reviewed & are unremarkable except as noted in HPI and below Reports as per HPI and Reports no additional complaints Card Reports as per HPI and Reports no additional complaints Resp Reports as per HPI and Reports no additional complaints GI Reports no additional complaints Reports no additional complaints Physical Exam Const General: cooperative, healthy appearing and comfortable Resp Effort & Inspection: normal respiratory effort Auscultation: clear to auscultation bilaterally Percussion: percussion normal Cardio Palpation: normal PMI Rate: regular rate Rhythm: regular rhythm Heart sounds: no murmurs and no rubs Peripheral pulses: Peripheral pulses 2+ throughout GI Inspection: Yes normal to inspection Palpation (GI): Soft to palpation, nontender, no guarding, not rigid and No hepatosplenomegaly present Percussion: Yes normal to percussion Auscultation: normal bowel sounds Rectal Exam - Female: deferred Results AMB Test Urine AMB Test Urine Negative Last Edit by Clarisse Mendoza CMA on 07/20/24 07:48 Assessment & Plan Assessment & Plan (1) Abnormal uterine bleeding: Code(s): N93.9 - Abnormal uterine and vaginal bleeding, unspecified Category: Medical Plan: EMB attempted, was aborted per patient's request because of intolerance to pain. Recommended as the next step to the patient hysteroscopy D&C possible polypectomy/myomectomy. Discussed with the patient the procedure , all benefits and risks including but not limited to inability to complete the procedure , insufficient endometrial tissue for a complete evaluation of the endometrial cavity , bleeding, infection, possible need for blood transfusion with all its risk ( HIV,syphilis, Hepatitis, anaphylaxis shock, others..), injury to bladder, rectum, possible need for laparoscopy/laparotomy or hysterectomy. The patient verbalized understanding and signed the consent. Instructions given the patient to stay NPO after midnight the day prior to the procedure and to take only the specific medication (s) discussed the morning of the surgical procedure and to schedule a 2 week postoperative appointment Orders: Orders AMB HCG Urine Test Today Z32.02 - Encounter for test, result negative Coding Level of Care Code Est Pt Level 3 (42993) Diagnoses Abnormal uterine bleeding N93.9
== END 2024-07-20 08:27 | disposition home or self-care (01) ==
LOC: HO.HWS 07:33
PROVIDERS: PCP Nurse Practitioner Family; Visit Provider Obstetrics & Gynecology
DX: Z32.02 Encounter for pregnancy test, result negative (principal); N93.9 Abnormal uterine and vaginal bleeding, unspecified
CPT/HCPCS: 99213

== ENCOUNTER → 2024-07-20 07:33 | Outpatient (BNVA) | payer OTHER, SELFPAY | PROVIDERS: PCP Nurse Practitioner Family; Visit Provider Obstetrics & Gynecology | DX: N93.9 Abnormal uterine and vaginal bleeding, unspecified (principal) | CPT/HCPCS: 81025; 99212 ==

== ENCOUNTER → 2024-08-03 09:09 | Day surgery (SDC) | payer OTHER, SELFPAY ==
[2024-08-01 11:57] VITALS: BMI 44.8
--- NOTE | 2024-08-02 10:24 | P.CONAN_ITS ---
Documented by User: Missy Capone NP 08/02/24 10:24 HPI - Anesthesia Eval Consult details Narrative: 48yo F for D&C Diagnostic Hysteroscopy,possible myomectomy,possible polypectomy PMFSH Active Problems Active Problems: All Active Problems Screen for STD (sexually transmitted disease) (Acute) Nephrolithiasis (Acute) Hepatomegaly (Acute) Abnormal uterine bleeding (Acute) Dyslipidemia (Acute) Hypokalemia (Acute) Encounter for screening colonoscopy (Acute) Osteoarthritis of left knee (Acute) Breast anomaly (Acute) Gonorrhea (Acute) Vaginal itching (Acute) Cervical cancer screening (Acute) Encounter for gynecological examination with Papanicolaou smear of cervix (Acute) Potential exposure to STD (Acute) Screening for breast cancer (Acute) Physical exam (Acute) Chest trauma (Acute) Tear of medial meniscus of right knee (Acute) 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 (Acute) Past Medical History Medical History Bipolar 1 disorder Anxiety Primary osteoarthritis of knees, bilateral Family History Family History Other Mental health disorder Substance use disorder Surgical History Surgical History Hx of arthroscopy of right knee Tubal ligation status Previous section History of repair of anterior cruciate ligament of left knee (~2009) Social History Social History Household Members Other:: BF Housing: Apartment Are you a primary personal caregiver to a significant other at home: No Do you presently have visiting nurse or other home services: No Alcohol intake: current Alcohol intake frequency: 3 or more drinks per day Alcohol type: beer Patient Tobacco Use Status: Current everyday Tobacco user Cigarettes Per Day: 8 e-Cigarette/Vaping Use: Never Used Second Hand Smoke Exposure: No Use of substances other than those prescribed or required for medical reasons: No Substance Use Type: Crack/Cocaine Have you been hit, kicked, punched, or otherwise hurt by someone within the past year? 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 Cognitive needs: No Hearing needs: No Vision needs: No Meds Allergies Allergy/AdvReac Type Severity Reaction Status Date / Time No Known Allergies Allergy Verified 08/03/24 09:43 Home Medications ?Medication ?Instructions ?Recorded ?Confirmed ?Last Taken ?Type clonazepam 0.5 mg tablet 0.25 mg PO BEDTIME 05/04/24 08/03/24 Unknown History clonidine HCl 0.1 mg tablet 0.1 mg PO BEDTIME 05/04/24 08/03/24 Unknown History risperidone 1 mg tablet (Risperdal) 1 mg PO BID 05/04/24 08/03/24 Unknown History hydroxyzine HCl 25 mg tablet 25 - 50 mg PO DAILY PRN insomnia 08/03/24 08/03/24 Unknown History Exam Height,Weight and Vital Signs: Height 5 ft 4 in Weight 118.388 kg Assessment and Plan Assessment Anesthesia Assessment: Chart Reviewed Documented by User: Katerina Bryant MD 08/03/24 10:38 HPI - Anesthesia Eval Consult details Narrative: 48yo F for D&C Diagnostic Hysteroscopy,possible myomectomy,possible polypectomy 08/03/24: Patient here for D&C, hysteroscopy today. Positive urine screen for cocaine and apparently binge drinking last night (per nurse). Dr Farley informed. Procedure will be rescheduled PMFSH Past Medical History Medical History Bipolar 1 disorder Anxiety Primary osteoarthritis of knees, bilateral Family History Family History Other Mental health disorder Substance use disorder Surgical History Surgical History Hx of arthroscopy of right knee Tubal ligation status Previous section History of repair of anterior cruciate ligament of left knee (~2009) Social History Social History Household Members Other:: BF Housing: Apartment Are you a primary personal caregiver to a significant other at home: No Do you presently have visiting nurse or other home services: No Alcohol intake: current Alcohol intake frequency: 3 or more drinks per day Alcohol type: beer Patient Tobacco Use Status: Current everyday Tobacco user Cigarettes Per Day: 8 e-Cigarette/Vaping Use: Never Used Second Hand Smoke Exposure: No Use of substances other than those prescribed or required for medical reasons: No Substance Use Type: Crack/Cocaine Have you been hit, kicked, punched, or otherwise hurt by someone within the past year? 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[email or web address] Cognitive needs: No Hearing needs: No Vision needs: No Meds Allergies Allergy/AdvReac Type Severity Reaction Status Date / Time No Known Allergies Allergy Verified 08/03/24 09:43 Home Medications ?Medication ?Instructions ?Recorded ?Confirmed ?Last Taken ?Type clonazepam 0.5 mg tablet 0.25 mg PO BEDTIME 05/04/24 08/03/24 Unknown History clonidine HCl 0.1 mg tablet 0.1 mg PO BEDTIME 05/04/24 08/03/24 Unknown History risperidone 1 mg tablet (Risperdal) 1 mg PO BID 05/04/24 08/03/24 Unknown History hydroxyzine HCl 25 mg tablet 25 - 50 mg PO DAILY PRN insomnia 08/03/24 08/03/24 Unknown History
[2024-08-03 09:46] VITALS: BP 144/89; PULSE 87; RESP 14; TEMP 36.9; O2SAT 97; BMI 45.0
[2024-08-03 10:07] LABS: Amphetamine Screen Urine Not Detected (Not Detect); Barbiturates, Urine Not Detected (Not Detect); Benzodiazepines Screen Urine Not Detected (Not Detect); Buprenorphine Scr Not Detected (Not Detect); Cannabinoid Screen Urine Not Detected (Not Detect); Cocaine Screen Urine POSITIVE (Not Detect); Fentanyl, urine Not Detected (Not Detect); Methadone Screen, Urine Not Detected (Not Detect); Opiate Screen Urine Not Detected (Not Detect); Oxycodone Screen Urine Not Detected (Not Detect); Phencyclidine Screen Urine Not Detected (Not Detect)
--- NOTE | 2024-08-03 10:34 | MHC.SHP ---
Pre-Procedural Eval Section A - 24 Hr Update-Section A only Date of Service: 08/03/24 Section B - Complete if H&P > 30 days Chief Complaint: Abnormal uterine and vaginal bleeding, unspecified Allergies: Allergies Allergy/AdvReac Type Severity Reaction Status Date / Time No Known Allergies Allergy Verified 08/03/24 09:43 Plan Urine tox positive for cocaine, procedure canceled will be rescheduled Time Spent With Patient Time: Total time managing care of this patient today ____ minutes.
--- NOTE | 2024-08-03 10:37 | PC.NURSE ---
Urine tox screen ordered per anesthesia. Pt positive for cocaine. Pt reports last used on Wednesday. States had 6-8 alcoholic beverages last night. Procedure canceled per anesthesia.
== END ==
LOC: HO.SSS 09:10
PROVIDERS: Nurse Practitioner; PCP Nurse Practitioner Family; Visit Provider Obstetrics & Gynecology
DX: N93.9 Abnormal uterine and vaginal bleeding, unspecified (principal); Z53.09 Procedure and treatment not carried out because of other contraindication; F14.90 Cocaine use, unspecified, uncomplicated
CPT/HCPCS: 80307

== ENCOUNTER 2024-08-23 12:30 | Day surgery (SDC) | payer OTHER, SELFPAY ==
--- OUTSIDE RECORDS SUMMARY | 2024-08-03 12:58 | XMS_ITS | Clinical Summary ---
Author Organization [facility] ity Address [address] [place] [address] Care Team Providers Care Data Coordinator Name Role Phone Louise Lane MD Primary Care Provider Surgical History Surgery Date Site/Laterality Comments SECTION PROCEDURE: PA DELIVERY ONLY; COMMENT: 5 KNEE SURGERY PROCEDURE: HISTORICAL KNEE SURGERY; COMMENT: acl TUBAL LIGATION PROCEDURE: HISTORICAL TUBAL LIGATION Family History Medical History Relation Name Comments Diabetes Father Hypertension Father cirrhosis Other: alive and well Mother Relation Name Status Comments Brother 1 Alive Brother 2 Alive Brother 3 Alive Father Alive Mother Alive Sister 1 Alive Sister 2 Alive Sister 3 Alive Social History Tobacco Use Types Packs/Day Years Used Date Smoking Tobacco: Every Day Cigarettes Smokeless Tobacco: Never Alcohol Use Standard Drinks/Week Comments Yes 0 (1 standard drink = 0.6 oz pur e alcohol) Comments Unknown Sex and Gender Information Value Date Recorded Sex Assigned at Not on file Legal Sex Female 1:22 PM EST Gender Identity Not on file Sexual Orientation Not on file Obstetrics History Plan of Treatment Health Maintenance Due Date Last Done Comments Breast Cancer Screening 1976 DTaP,Tdap,and Td Vaccines (1 - Tdap) 11/25/1995 Hepatitis B Vaccines (1 of 3 - 19+ 3-dose series) 11/25/1995 Pneumococcal Vaccine: Pediat rics (0 to 5 Years) and At-Risk Patients (6 to 64 Years) (1 of 2 - PCV) 11/25/1995 Cervical Cancer Screening: P ap Smear 1997 Colorectal Cancer Screening: Colonoscopy 04/28/2022 Depression Screening 04/28/2022 HIV Screening 04/28/2022 Hepatitis C Screening 04/28/2022 Social Influencers of Health Screening 04/28/2022 COVID-19 Vaccine (1 - 4-2 5 season) 2024 Influenza Vaccine (#1) 2024 HIB Vaccines Aged Out No longer eligi ble based on patient's age to complete this topic HPV Vaccines Aged Out No longer eligi ble based on patient's age to complete this topic Hepatitis A Vaccines Aged Out No long er eligible based on patient's age to complete this topic IPV Vaccines Aged Out No longer eligi ble based on patient's age to complete this topic MMR Vaccines Aged Out No longer eligi ble based on patient's age to complete this topic Meningococcal ACWY Vaccine Aged Out N o longer eligible based on patient's age to complete this topic Meningococcal B Vacine Aged Out No lo nger eligible based on patient's age to complete this topic RSV Immunization Patients Un pooja 20 months Aged Out No longer eligible b ased on patient's age to complete this topic Varicella Vaccines Aged Out No longer eligible based on patient's age to complete this topic Care Teams Data Coordinator Relationship Specialty Start Date End Date Louise Lane MD [address] [place] [address] PCP - General Internal Medicine 04/15/18
[2024-08-21 08:28] VITALS: BMI 44.8
[2024-08-23 13:01] VITALS: BP 145/94; PULSE 85; RESP 14; TEMP 37.2; O2SAT 96; BMI 44.6
[2024-08-23 13:03] LABS: UPreg QC Valid YES; Urine Pregnancy NEGATIVE (NEGATIVE)
--- NOTE | 2024-08-23 13:05 | MHC.SHP ---
Pre-Procedural Eval Section A - 24 Hr Update-Section A only Date of Service: 08/23/24 The patient is an INPATIENT: No Changes since office visit: No Cold of Flu in the past 2 weeks, No New Medical Problems, No Changes in Medication and No Patient answered all questions The patient has been examined within 24 hours of the surgical procedure. The History & Physical has been completed within 30 days and I have reviewed it.: Yes Section B - Complete if H&P > 30 days Chief Complaint: Abnormal uterine and vaginal bleeding, unspecified Allergies: Allergies Allergy/AdvReac Type Severity Reaction Status Date / Time No Known Allergies Allergy Verified 08/03/24 09:43 Plan Diagnosis/Plan: Unchanged I have reviewed the history and physical and performed a pertinent physical examination on my patient. No changes have occurred unless specified. Time Spent With Patient Time: Total time managing care of this patient today ____ minutes.
[2024-08-23 13:16] LABS: Amphetamine Screen Urine Not Detected (Not Detect); Barbiturates, Urine Not Detected (Not Detect); Benzodiazepines Screen Urine Not Detected (Not Detect); Buprenorphine Scr Not Detected (Not Detect); Cannabinoid Screen Urine Not Detected (Not Detect); Cocaine Screen Urine Not Detected (Not Detect); Fentanyl, urine Not Detected (Not Detect); Methadone Screen, Urine Not Detected (Not Detect); Opiate Screen Urine Not Detected (Not Detect); Oxycodone Screen Urine Not Detected (Not Detect); Phencyclidine Screen Urine Not Detected (Not Detect)
--- NOTE | 2024-08-23 13:18 | P.CONAN_ITS ---
HPI - Anesthesia Eval Consult details Narrative: hysteroscopy samiralexandro panda [facility] Active Problems Active Problems: All Active Problems Screen for STD (sexually transmitted disease) (Acute) Nephrolithiasis (Acute) Hepatomegaly (Acute) Abnormal uterine bleeding (Acute) Dyslipidemia (Acute) Hypokalemia (Acute) Encounter for screening colonoscopy (Acute) Osteoarthritis of left knee (Acute) Breast anomaly (Acute) Gonorrhea (Acute) Vaginal itching (Acute) Cervical cancer screening (Acute) Encounter for gynecological examination with Papanicolaou smear of cervix (Acute) Potential exposure to STD (Acute) Screening for breast cancer (Acute) Physical exam (Acute) Chest trauma (Acute) Tear of medial meniscus of right knee (Acute) 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 (Acute) Past Medical History Medical History Bipolar 1 disorder Anxiety Primary osteoarthritis of knees, bilateral Family History Family History Other Mental health disorder Substance use disorder Family history of problems with anesthesia: No Surgical History Surgical History Hx of arthroscopy of right knee Tubal ligation status Previous section History of repair of anterior cruciate ligament of left knee (~2009) History of Problems with Anesthesia: No Social History Social History Household Members Other:: BF Housing: Apartment Are you a primary field care advocate to a significant other at home: No Do you presently have visiting nurse or other home services: No Alcohol intake: current Alcohol intake frequency: 3 or more drinks per day Alcohol type: beer Patient Tobacco Use Status: Current everyday Tobacco user Cigarettes Per Day: 5 e-Cigarette/Vaping Use: Never Used Second Hand Smoke Exposure: No Use of substances other than those prescribed or required for medical reasons: No Substance Use Type: Crack/Cocaine Have you been hit, kicked, punched, or otherwise hurt by someone within the past year? 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 Cognitive needs: No Hearing needs: No Vision needs: No Meds Allergies Allergy/AdvReac Type Severity Reaction Status Date / Time No Known Allergies Allergy Verified 08/03/24 09:43 Active Medications: Current Medications Lactated Ringer's (Lr) 1,000 mls @ 80 mls/hr IVCONT .[id number] DAYNE Home Medications ?Medication ?Instructions ?Recorded ?Confirmed ?Last Taken ?Type clonazepam 0.5 mg tablet 0.25 mg PO BEDTIME 05/04/24 08/23/24 08/22/24 History clonidine HCl 0.1 mg tablet 0.1 mg PO BEDTIME 05/04/24 08/23/24 08/22/24 History risperidone 1 mg tablet (Risperdal) 1 mg PO BID 05/04/24 08/23/24 08/22/24 History hydroxyzine HCl 25 mg tablet 25 - 50 mg PO DAILY PRN insomnia 08/03/24 08/23/24 08/22/24 History Exam Height,Weight and Vital Signs: Height 5 ft 4 in Weight 118 kg Last Vital Signs Temp 99.0 F 08/23/24 13:01 Pulse 85 08/23/24 13:01 Resp 14 08/23/24 13:01 BP 145/94 H 08/23/24 13:01 Pulse Ox 96 08/23/24 13:01 O2 Del Method Room Air 08/23/24 13:01 Pertinent Lab Results Pertinent Lab Results: Laboratory Tests 08/23/24 12:35 Urine Test NEGATIVE Urine Opiates Screen Not Detected Ur Buprenorphine Scrn Not Detected Ur Oxycodone Screen Not Detected Urine Methadone Screen Not Detected Urine Fentanyl Screen Not Detected Ur Barbiturates Screen Not Detected Ur Phencyclidine Scrn Not Detected Ur Amphetamines Screen Not Detected U Benzodiazepines Scrn Not Detected Urine Cocaine Screen Not Detected U Marijuana (THC) Screen Not Detected Airway Mallampati Class: II TM Dist: >3cm Neck ROM: Full Loose/Missing/Broken Teeth: Yes, Upper and Lower Heart: rrr Lungs: cta Assessment and Plan Assessment Anesthesia Assessment: Anesthesia Plan Discussed Final Anesthetic Review Family History of Problems with Anesthesia: No History of Problems with Anesthesia: No NPO: Yes ASA Class: III Final Preanesthetic Review: No Changes in Pt Med Stat, Meds/Allgs Chart Reviewed, Consent Obtained/Reviewed and Anes Risks/Benef Reviewed Patient Risk: Intermediate Procedure Risk: Low Anesthetic Plan Anesthetic Plan: GA Disposition: Standard PACU
[2024-08-23] MEDS: Lactated Ringers 1,000 ML 80 ML IVCONT (13:25)
--- NOTE | 2024-08-23 14:09 | P.BOP_ITS ---
Brief Operative Note Date of Service: 08/23/24 Pre-op diagnosis: Abnormal uterine bleeding Post-op diagnosis: same (Normal endometrial cavity) Procedure: Hysteroscopy D&C Surgeon: Pritesh Farley MD Anesthesia: GLMA Was an Bilingual Research Interviewer used for this Procedure?: No Estimated blood loss (mL): 0 Pathology: other (Endometrial Scrapping.) Condition: stable Disposition: PACU
--- NOTE | 2024-08-23 14:10 | W.PM.OPN ---
Operative Note Operative Note Date of Service: 08/23/24 Narrative: Preop Diagnosis: Abnormal uterine bleeding Operation: Diagnostic Hysteroscopy, Dilataion & Curettage Post Op Diagnosis: Normal endometrial and endocervical cavity, no evidence of pathology QBL: Minimal Anesthesia: GLMA Surgeon: Pritesh Farley MD Mold Yard Crane Operator: None Complication: None Pathology: Endometrial Scrapings Procedure: The patient was put in the dorsal lithotomy position, scrubbed, and draped in the usual manner. A sterile speculum was inserted in the patient's vagina. The anterior lip of the cervix was grasped with a single tooth tenaculum. The cervix was dilated up to 5 mm, then the scope was inserted in the patient's uterus. Inspection revealed normal endocervical & endometrial cavity with no evidence of pathology. The scope was taken out of the uterine cavity , then sharp curetting was carried on with no complications. At the end of the procedure, all instruments were taken out of the patient uterine and vaginal cavity. The single tooth tenaculum was removed and homeostasis was assured using pressure. The patient tolerated the procedure well and was transferred to the PACU in a stable condition.
[2024-08-23 14:12] VITALS: BP 131/86; PULSE 70; RESP 18; TEMP 36.7; O2SAT 95
[2024-08-23 14:17] VITALS: BP 136/93; PULSE 67; RESP 17; O2SAT 97
[2024-08-23 14:22] VITALS: BP 152/81; PULSE 77; RESP 18; O2SAT 96
[2024-08-23 14:27] VITALS: BP 135/93; PULSE 80; RESP 17; O2SAT 98
[2024-08-23 14:42] VITALS: BP 140/91; PULSE 75; RESP 17; TEMP 36.3; O2SAT 98
== END 2024-08-23 15:09 | disposition home or self-care (01) ==
PROVIDERS: Anesthesiology; PCP Nurse Practitioner Family; Visit Provider Obstetrics & Gynecology
PROC: 0UDB8ZZ Extraction of Endometrium, Via Natural or Artificial Opening Endoscopic (ICD-10-PCS; CPT 58558; principal; 2024-08-23 13:00)
DX: N93.9 Abnormal uterine and vaginal bleeding, unspecified (principal); M17.0 Bilateral primary osteoarthritis of knee; F31.9 Bipolar disorder, unspecified; F41.9 Anxiety disorder, unspecified; Z98.51 Tubal ligation status; F17.210 Nicotine dependence, cigarettes, uncomplicated; F14.90 Cocaine use, unspecified, uncomplicated; Z79.899 Other long term (current) drug therapy; Z98.890 Other specified postprocedural states
CPT/HCPCS: 58558; 80307; 81025; 88305; J1100; J1885; J2003; J2250; J2405; J2704; J3010

== ENCOUNTER → 2024-08-23 12:30 | Outpatient (BNV) | payer OTHER, SELFPAY | PROVIDERS: PCP Nurse Practitioner Family; Visit Provider Obstetrics & Gynecology | DX: N93.9 Abnormal uterine and vaginal bleeding, unspecified (principal) | CPT/HCPCS: 58558 ==

== ENCOUNTER 2024-09-05 14:43 | Outpatient (AMB) | payer OTHER, SELFPAY ==
--- NOTE | 2024-09-05 14:44 | MHC.OFFVIS ---
Intake Visit Reasons: post op Allergies No Known Allergies Allergy (Verified 08/03/24 09:43) HPI Comments Details: The patient schedule a telehealth visit after endometrial biopsy. The patient has no complaints, no vaginal bleeding, no feverishness chills or abdominal pain. The endometrial biopsy pathology report showed the following: Endometrium, curettage: Benign endometrium with extensive glandular and stromal breakdown, fragment consistent with benign endometrial polyp, and benign endocervical glandular and squamous epithelium; no atypia or carcinoma [facility] Medical History Bipolar 1 disorder Anxiety Primary osteoarthritis of knees, bilateral Surgical History Hx of arthroscopy of right knee Tubal ligation status Previous section History of repair of anterior cruciate ligament of left knee (~2009) Family History Other Mental health disorder Substance use disorder Social History Household Members Other:: BF Housing: Apartment Are you a primary school child care attendant to a significant other at home: No Do you presently have visiting nurse or other home services: No Alcohol intake: current Alcohol intake frequency: 3 or more drinks per day Alcohol type: beer Patient Tobacco Use Status: Current everyday Tobacco user Cigarettes Per Day: 5 e-Cigarette/Vaping Use: Never Used Second Hand Smoke Exposure: No Substance Use Type: Crack/Cocaine 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al status: employed 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[employer], 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 Cognitive needs: No Hearing needs: No Vision needs: No Female Reproductive History Menstrual Age of Menarche: 12 Review of Systems Const All systems reviewed & are unremarkable except as noted in HPI and below Reports as per HPI and Reports no additional complaints GI Reports no additional complaints Reports no additional complaints Telehealth Telehealth Telehealth Platform: Telephone Location of provider rendering services: practice address Location of patient: address on file Patient Identification confirmed using: Name, : Yes Telehealth method: video Patient verbally consented to treatment: Yes Patient verbally consented to billing insurance company: Yes Patient informed of any privacy concerns related to visit: Yes Minutes spent on Phone/Video with Pt.: 2 Assessment & Plan Assessment & Plan (1) Abnormal uterine bleeding: Comment: Endometrial polyp by EMB pathology Code(s): N93.9 - Abnormal uterine and vaginal bleeding, unspecified Category: Medical Plan: Discussed with the patient the results the pathology showing fragments of endometrial polyp, recommended hysteroscopy D&C possible polypectomy/myomectomy I spent a total of 20 minutes reviewing the chart, talking to the patient via video and documenting in the medical record. Coding Level of Care Code Tele Est Pt Level 3 (08849) Diagnoses Abnormal uterine bleeding N93.9
--- OUTSIDE RECORDS SUMMARY | 2024-09-05 17:49 | XMS_ITS | Clinical Summary ---
Author Organization [email or web address] [facility] ity Address [address] [place] [address] Care Team Providers Care Credit Control Officer Name Role Phone Louise Lane MD Primary [...] age to complete this topic Meningococcal B Vaccine Aged Out No l onger eligible based on patient's age to complete this topic RSV Immunization Patients Un pooja 20 months Aged Out No longer eligible b ased on patient's age to complete this topic Varicella Vaccines Aged Out No longer eligible based on patient's age to complete this topic Care Teams Credit Control Officer Relationship Specialty Start Date End Date Louise Lane MD [address] [place] [address] PCP - General Internal Medicine 04/15/18
== END 2024-09-05 14:52 | disposition home or self-care (01) ==
LOC: HO.HWS 14:43
PROVIDERS: PCP Nurse Practitioner Family; Visit Provider Obstetrics & Gynecology
DX: N93.9 Abnormal uterine and vaginal bleeding, unspecified (principal)
CPT/HCPCS: 99213

== ENCOUNTER → 2024-09-05 14:43 | Outpatient (BNVA) | payer OTHER, SELFPAY | PROVIDERS: PCP Nurse Practitioner Family; Visit Provider Obstetrics & Gynecology ==

== ENCOUNTER 2024-09-27 08:49 | Outpatient (AMB) | payer OTHER, SELFPAY ==
--- NOTE | 2024-09-27 08:51 | MHC.OFFVIS ---
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 The following workup was done: H&H= 13/37.7 Hysteroscopy D&C done in 08/22, showed normal intra uterine cavity, pathology showed the following: Benign endometrium with extensive glandular and stromal breakdown, fragment consistent with benign endometrial polyp, and benign endocervical glandular and squamous epithelium; no atypia or carcinoma. TSH, hCG, GC and chlamydia were negative. FSH/LH 20.8/15.7 Co testing was done in 06/21 was negative. Mammogram in 01/20 was negative Pelvic ultrasound showed the following: UTERUS: The uterus is anteverted. Size: 11.4 x 4.6 x 4.9 cm. Uterine mass: Intramural uterine mass likely fibroid measuring up to 3.3 cm. Cervix: There are nabothian cysts otherwise Grossly unremarkable. Endometrium: No ultrasound evidence of endometrial lesion. endometrial thickness measures 0.4 cm ADNEXA: Normal Right ovary: Normal in size. Left ovary: Not seen Doppler exam: Normal Doppler flow identified in right ovary FREE FLUID: Trace amount of free fluid. OTHER FINDINGS: None PFSH Medical History Bipolar 1 disorder Anxiety Primary osteoarthritis of knees, bilateral Surgical History Hx of arthroscopy of right knee Tubal ligation status Previous section History of repair of anterior cruciate ligament of left knee (~2009) Family History Other Mental health disorder Substance use disorder Social History Household Members Other:: BF Housing: Apartment Are you a primary congregational care pastor to a significant other at home: No Do you presently have visiting nurse or other home services: No Alcohol intake: current Alcohol intake frequency: 3 or more drinks per day Alcohol type: beer Patient Tobacco Use Status: Current everyday Tobacco user Cigarettes Per Day: 5 e-Cigarette/Vaping Use: Never Used Second Hand Smoke Exposure: No Substance Use Type: Crack/Cocaine 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al status: employed 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[employer], 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 Cognitive needs: No Hearing needs: No Vision needs: No Female Reproductive History Menstrual Age of Menarche: 12 Date of last menstrual period: 08/24/24 control method: permanent sterilization Total pregnancies: 2 Full term: 2 Review of Systems Const All systems reviewed & are unremarkable except as noted in HPI and below Reports as per HPI and Reports no additional complaints Card Reports as per HPI and Reports no additional complaints Resp Reports as per HPI and Reports no additional complaints GI Reports as per HPI and Reports no additional complaints Reports as per HPI Physical Exam Vital Signs: Last Vital Signs BP 124/86 09/27/24 08:55 BMI result Body Mass Index 42.9 Const General: cooperative, healthy appearing and comfortable Resp Effort & Inspection: normal respiratory effort Auscultation: clear to auscultation bilaterally Percussion: percussion normal Cardio Palpation: normal PMI Rate: regular rate Rhythm: regular rhythm Heart sounds: no murmurs and no rubs Peripheral pulses: Peripheral pulses 2+ throughout GI Inspection: Yes normal to inspection Palpation (GI): Soft to palpation, nontender, no guarding, not rigid and No hepatosplenomegaly present Percussion: Yes normal to percussion Auscultation: normal bowel sounds Rectal Exam - Female: deferred Assessment & Plan Assessment & Plan (1) Abnormal uterine bleeding: Code(s): N93.9 - Abnormal uterine and vaginal bleeding, unspecified Category: Medical Plan: Recommended the patient to have her mammogram scheduled as soon as possible. Discussed with the patient the results of the work up done and options of treatment including Lysteda, BCP's, Mirena IUD, endometrial ablation and hysterectomy. All pros, cons, risks and benefits if each option was discussed with the patient and the patient decided to think about it and get back to us. All questions answered the patient verbalized understanding. (2) Uterine myoma: Code(s): D25.9 - Leiomyoma of uterus, unspecified Category: Medical Plan: Discussed with the patient the findings on pelvic ultrasound & the risk of myosarcoma; in addition reviewed with the patient that malignancy and pre malignancy cannot be ruled out without hysterectomy for pathological evaluation ; furthermore, explained to the patient the limitation of pelvic ultrasound and endometrial biopsy in the setting. Discussed with the patient the options of treatment including expectant management versus hysterectomy; the pros and cons, risks benefits of each approach were discussed with the patient including the fact that in cases of myosarcoma, surgical treatment can lead to early diagnosis and positively affects the prognosis; after further discussion, the patient decided to proceed with expectant management. Will repeat pelvic ultrasound periodically. Instructions given to patient to call in case any of the following occurs: pressure symptoms, abnormal uterine bleeding, pelvic pain; and to schedule a six-months pelvic ultrasound (order placed) and a follow-up appointment . All questions answered, the patient verbalized understanding and agreed with the plan . Orders: Orders US pelvic and transvaginal 6 Months D25.9 - Leiomyoma of uterus, unspecified Coding Level of Care Code Est Pt Level 3 (89058) Diagnoses Abnormal uterine bleeding N93.9 Uterine myoma D25.9
[2024-09-27 08:55] VITALS: BP 124/86; BMI 42.9
--- OUTSIDE RECORDS SUMMARY | 2024-09-27 09:12 | XMS_ITS | Clinical Summary ---
Author Organization [employer] [facility] ity Address [address] [place] [address] Care Team Providers Care Land Planner Name Role Phone Louise Lane MD Primary Care Provider Surgical History Surgery Date Site/Laterality Comments SECTION PROCEDURE: [place] DELIVERY ONLY; COMMENT: 5 KNEE SURGERY PROCEDURE: [...] - 4-2 5 season) 2024 Influenza Vaccine (Season Ended) 2025 HIB Vaccines Aged Out No longer eligi [...] age to complete this topic Care Teams Land Planner Relationship Specialty Start Date End Date Louise Lane MD [address] [place] [address] PCP - General Internal Medicine 04/15/18
== END 2024-09-27 09:07 | disposition home or self-care (01) ==
PROVIDERS: PCP Nurse Practitioner Family; Visit Provider Obstetrics & Gynecology
DX: N93.9 Abnormal uterine and vaginal bleeding, unspecified (principal); D25.9 Leiomyoma of uterus, unspecified
CPT/HCPCS: 99213

== ENCOUNTER → 2024-09-27 08:49 | Outpatient (BNVA) | payer OTHER, SELFPAY | PROVIDERS: PCP Nurse Practitioner Family; Visit Provider Obstetrics & Gynecology | DX: N93.9 Abnormal uterine and vaginal bleeding, unspecified (principal); D25.9 Leiomyoma of uterus, unspecified | CPT/HCPCS: 99212 ==

== ENCOUNTER 2024-10-03 07:31 | Outpatient (AMB) | payer OTHER, SELFPAY ==
--- OUTSIDE RECORDS SUMMARY | 2024-10-03 07:33 | XMS_ITS | Clinical Summary ---
Author Organization [facility] ity Address [address] [place] [address] Care Team Providers Care Insurance Case Manager Name Role Phone Louise Lane MD Primary Care Provider Surgical History Surgery Date Site/Laterality Comments SECTION PROCEDURE: [place] DELIVERY ONLY; COMMENT: 5 KNEE SURGERY PROCEDURE: [...] of 3 - 19+ 3-dose series) 11/25/1995 Cervical Cancer Screening: P ap Smear 1997 COVID-19 Vaccine (2023-2 5 season) 2024 Influenza Vaccine (Season Ended) [...] on patient's age to complete this topic Pneumococcal Vaccine: Pediat rics (0 to 5 Years) and At-Risk Patients (6 to 64 Years) Aged Out No longer eligible b ased on patient's age to complete this topic RSV Immunization Patients Un pooja 20 months Aged Out No longer eligible b ased on patient's age to complete this topic Varicella Vaccines Aged Out No longer eligible based on patient's age to complete this topic Care Teams Insurance Case Manager Relationship Specialty Start Date End Date Louise Lane MD [address] [place] [address] PCP - General Internal Medicine 04/15/18
--- NOTE | 2024-10-03 07:42 | MHC.PC.OV ---
Vital Signs 10/03/24 07:44 Height 5 ft 5 in Weight 260 lb BMI 43.3 BP 100/64 Blood Pressure Location Lt brachial Position Sitting Respiration 16 Pulse 98 Pulse Source Pulse Oximeter Pulse Oximetry (%) 98 Oxygen Delivery Method Room Air Intake Visit Reasons: Annual PE Intake Note: Pt is here today for her PE Allergies No Known Allergies Allergy (Verified 10/03/24 08:08) Medication List - Last Reconciled 10/03/24 by SONIYA Beal- clonazepam 0.25 mg PO BEDTIME clonidine HCl 0.1 mg PO BEDTIME hydroxyzine HCl 25 - 50 mg PO DAILY PRN risperidone (Risperdal) 1 mg PO BID Tobacco use date assessed: 10/03/24 Dental Screening Dental Screen Date: 10/03/24 Did you have a dental visit in the last 12 months?: Yes Did you have a dental problem in the last 6 months where you did not have access to dental care?: Yes Was dental information given to patient?: Patient has dentist HPI Annual PE HPI Details History of Present Illness The patient is a 48-year-old female presenting for a routine physical examination and health maintenance. She reports no complaints of chest pain, shortness of breath, abdominal pain, bleeding or changes in bowel habits, fevers, or chills. The patient denies any thoughts of self-harm or harm to others. Her past consultations with a bulk filler did not proceed to colonoscopy, prompting her interest in Cologuard as an alternative screening method. The patient is due for mammographic screening and remains compliant with regular Pap smears provided by her prefabricated houses trimmer. Regarding mental health, the patient maintains regular appointments with both a psychiatrist and a psychologist. She acknowledges being morbidly obese and is actively exploring treatment options such as GLP-1 agonists, contingent upon insurance approval. Possible side effects of such treatments have been discussed with her, and she plans to have fasting labs performed shortly. Health Maintenance - Mammogram order placed for breast cancer screening - Cologuard test recommended as a non-invasive colorectal cancer screening alternative - Regular Pap smears established with gynecological provider - Discussion of GLP-1 agonists for obesity treatment following insurance verification - Encouraged fasting laboratory tests for further health evaluation Social History - Regular psychological care with psychiatrist and psychologist - Exploration of insurance coverage for potential use of GLP-1 receptor agonists for weight management Review of Systems - Cardiovascular: Denies chest pain - Respiratory: Denies dyspnea - Gastrointestinal: Denies abdominal pain, hematochezia, constipation, diarrhea - General: Denies fevers, chills - Psychiatric: Denies suicidal or homicidal ideation Physical Exam General: Cooperative, healthy appearing, comfortable, no acute distress and well developed Orientation: Patient oriented x3 Limitations: No limitations Head: Normal to inspection Ears: Hearing grossly normal bilaterally Nose: Normal external nose present Face and sinus: Normal facial exam Eyes: Appearance normal, both eyes and all related structures Neck: Normal visual inspection and Yes full ROM Respiratory: Normal respiratory effort and able to speak in complete sentences. Clear to auscultation bilaterally Cardiovascular: Regular rate and rhythm. Normal S1 and S2 GI: Normal to inspection. Soft to palpation and nontender Skin: No rashes or lesions noted Neuro: Patient oriented x3 Extremities: Normal to inspection Results Plan I have devised a comprehensive plan addressing the patient's bertrand areas of concern. To manage her morbid obesity, we discussed the potential administration of GLP-1 agonists, which is pending insurance verification and considering reported side effects. To ensure appropriate cancer screening, a mammogram has been ordered and Cologuard has been proposed as an alternative for colonoscopy. Continued compliance with Pap smears through her prefabricated houses trimmer is noted. Additionally, I advised obtaining fasting lab tests to aid in comprehensive health evaluation and determination of future interventions. Discussion Notes During the consultation, I reviewed the patient's primary health concerns and screening needs. I explained the potential benefits and side effects of GLP-1 agonists as a treatment for obesity, stressing the need to verify insurance coverage. For cancer screening, I confirmed the mammogram order and introduced Cologuard as a less invasive option compared to colonoscopy. Emphasis was placed on the importance of conducting fasting laboratory tests to aid in holistic health assessment. I reassured the patient about her regular Pap smears with her prefabricated houses trimmer and encouraged future consultations for continued health monitoring and intervention adjustments as necessary. Patient Instructions - Undergo a mammogram as ordered for breast cancer screening - Consider Cologuard for colorectal cancer screening rather than colonoscopy - Follow up with insurance regarding coverage for GLP-1 agonists - Schedule fasting laboratory tests soon [facility] Medical History Bipolar 1 disorder Anxiety Primary osteoarthritis of knees, bilateral Surgical History Hx of arthroscopy of right knee Tubal ligation status Previous section History of repair of anterior cruciate ligament of left knee (~2009) Family History Other Mental health disorder Substance use disorder Social History Household Members Other:: BF Housing: Apartment Are you a primary healthcare advisory services manager to a significant other at home: No Do you presently have visiting nurse or other home services: No Alcohol intake: current Alcohol intake frequency: 3 or more drinks per day Alcohol type: beer Patient Tobacco Use Status: Current everyday Tobacco user Cigarettes Per Day: 5 e-Cigarette/Vaping Use: Never Used Second Hand Smoke Exposure: No Substance Use Type: Crack/Cocaine 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al status: employed 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[employer] Cognitive needs: No Hearing needs: No Vision needs: No Female Reproductive History Menstrual Age of Menarche: 12 Questionnaire PHQ-9 Over the last 2 weeks, how often have you been bothered by any of the following problems? 1. Little interest or pleasure in doing things: several days 2. Feeling down, depressed, or hopeless: more than half the days 3. Trouble falling or staying asleep, or sleeping too much: several days 4. Feeling tired or having little energy: several days 5. Poor appetite or overeating: nearly every day 6. Feeling bad about yourself - or that you are a failure or have let yourself or your family down: more than half the days 7. Trouble concentrating on things, such as reading the newspaper or watching television: more than half the days 8. Moving or speaking so slowly that other people could have noticed. Or the opposite - being so fidgety or restless that you have been moving around a lot more than usual: several days 9. Thoughts that you would be better off or of hurting yourself in some way: not at all Total score: 13 Depression Screening Interpretation: Positive Depression Screening Follow-up: Existing condition and In treatment Depression Screening Done: Yes 83114 - PHQ-9 Billing: Yes Source: Developed by Drs. Felix Méndez, Aggie Ibarra, Zach Escalante and colleagues, with an educational naomi from [employer]. Thrive Questionnaire Date Thrive assessed: 09/26/24 I am a: Patient What is your living situation today?: I have a steady place to live Within the past 12 months, did the food you bought not last and you didn't have the money to get more?: Never true Within the past 12 months, did you worry whether your food would run out before you got money to buy more?: Never true Do you have trouble paying for medicines?: No Do you have trouble getting transportation to medical appointments?: No Do you have trouble paying your heating and electricity bill?: No Do you have trouble taking care of your child, family member or friend?: No Do you have trouble with day-to-day activities such as bathing, preparing meals, shopping, managing finances, etc.?: No Are you currently unemployed and looking for a job?: No Are you interested in more education?: Yes Please select the resources that you would like help with: None Currently or been in a relationship where the following occur: No concerns reported THRIVE Score: 0 AUDIT C Alcohol Use Questionnaire (AUDIT-C) 1. How often do you have a drink containing alcohol?: 2-4 times a month 2. How many drinks containing alcohol do you have on a typical day when you are drinking?: 3 or 4 3. How often do you have six or more drinks on one occasion?: Less than monthly Total Score: 4 BETTE-7 AMB Questionnaire BETTE-7 Date BETTE - 7 assessed: 10/03/24 Feeling nervous, anxious, or on edge: 3 = Nearly every day Not being able to stop or control worryin = Nearly every day Worrying too much about different things: 3 = Nearly every day Trouble relaxin = Nearly every day Being so restless that it is hard to sit still: 2 = More than half the days Becoming easily annoyed or irritable: 3 = Nearly every day Feeling afraid as if something awful might happen: 3 = Nearly every day Total BETTE-7 score (0-4 normal; 5-9 mild; 10-14 moderate; 15-21 severe): 20 Source: Developed by Drs. Felix Méndez, Aggie Ibarra, Zach Escalante and colleagues, with an educational naomi from [employer]. BETTE-7 Assessment Billing BETTE-7 Assessment Tool: BETTE-7 Assessment 53426 (denies any si or hi) Physical exam (Primary Care) Vital Signs: Last Vital Signs Pulse 98 10/03/24 07:44 Resp 16 10/03/24 07:44 BP 100/64 10/03/24 07:44 Pulse Ox 98 10/03/24 07:44 Oxygen Delivery Method Room Air 10/03/24 07:44 BMI result Body Mass Index 43.3 Tobacco/Smoking Status: Tobacco use Status Tobacco use date assessed 10/03/24 10/03/24 07:48 Patient Tobacco Use Status Current everyday Tobacco 10/03/24 07:44 e-Cigarette/Vaping Use Never Used 10/03/24 07:44 PHQ-9: PHQ-9 Score PHQ-9: Total score 13 10/03/24 07:44 Depression Screening Interpretation: Positive Depression Screening Follow-up: Existing condition and In treatment Thrive Assessment: Date of Thrive Assessment Date Thrive assessed 09/26/24 10/03/24 07:44 Currently or been in a relationship where the following occur: No concerns reported Coding Level of Care Code Est Pt Prev Care 40-64y(27567) Diagnoses Physical exam Z00.00 Additional Codes BETTE-7 Assessment Billing - BETTE-7 Assessment Tool: BETTE-7 Assessment 33021 ([id number]) PHQ-9 - 62245 - PHQ-9 Billing: Yes ([id number]) Assessment & Plan Assessment & Plan (1) Physical exam: Code(s): Z00.00 - Encounter for general adult medical examination without abnormal findings Category: Medical Plan . Orders: Orders Complete Blood Count Auto Diff Today Z00.00 - Encounter for general adult medical examination without abnormal findings Comprehensive [place]. Panel Fast Today Z00.00 - Encounter for general adult medical examination without abnormal findings TSH reflex Free T4 Today Z00.00 - Encounter for general adult medical examination without abnormal findings UA CC w/rflx Micro + Cult Today Z00.00 - Encounter for general adult medical examination without abnormal findings Lipid Panel Today Z00.00 - Encounter for general adult medical examination without abnormal findings MM screening mammo BI Today Z12.31 - Encounter for screening mammogram for malignant neoplasm of breast Referrals Cologuard Test Z12.11 - Encounter for screening for malignant neoplasm of colon, Z12.12 - Encounter for screening for malignant neoplasm of rectum
[2024-10-03 07:44] VITALS: BP 100/64; PULSE 98; RESP 16; O2SAT 98; BMI 43.3
== END 2024-10-03 08:53 | disposition home or self-care (01) ==
LOC: HO.HMCC 07:32
PROVIDERS: PCP Nurse Practitioner Family; Visit Provider Nurse Practitioner Family
DX: Z00.00 Encounter for general adult medical examination without abnormal findings (principal)

== ENCOUNTER → 2024-10-03 07:31 | Outpatient (BNVA) | payer OTHER, SELFPAY | PROVIDERS: PCP Nurse Practitioner Family; Visit Provider Nurse Practitioner Family | DX: Z00.00 Encounter for general adult medical examination without abnormal findings (principal); E66.01 Morbid (severe) obesity due to excess calories; Z68.41 Body mass index [BMI] 40.0-44.9, adult | CPT/HCPCS: 96127; 99396 ==

== ENCOUNTER 2024-10-17 09:23 | Outpatient (AMB) | payer OTHER, SELFPAY ==
--- NOTE | 2024-10-17 09:24 | MHC.OFFVIS ---
Vital Signs 10/17/24 09:28 Height 5 ft 5 in Weight 260 lb BMI 43.3 BP 126/74 Intake Visit Reasons: vag itch Intake Note: vaginal itching 1 week, occasional burning. 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 She has been recently having a full workup for abnormal bleeding and had a full evaluation and full discussion of options at her last visit with Dr. Farley. Exert of some of the physical findings is added to results reviewed section of this note. Patient tells me she has not had any abnormal bleeding since then so she is taking a wait and see attitude Asked her about any other symptoms and she says the itching is the there for about a week she did change her soap at 1 point because she did not have the liquid dove soap that she likes. I questioned whether not she has diabetes and she said she did know about some high blood sugars in the past but did not think she had diabetes she does have orders to get fasting blood work done but she keeps forgetting and she eats before she gets them done. [facility] Medical History Bipolar 1 disorder Anxiety Primary osteoarthritis of knees, bilateral Surgical History Hx of arthroscopy of right knee Tubal ligation status Previous section History of repair of anterior cruciate ligament of left knee (~2009) Family History Other Mental health disorder Substance use disorder Social History Household Members Other:: BF Housing: Apartment Are you a primary care team coordinator scheduler to a significant other at home: No Do you presently have visiting nurse or other home services: No Alcohol intake: current Alcohol intake frequency: 3 or more drinks per day Alcohol type: beer Patient Tobacco Use Status: Current everyday Tobacco user Cigarettes Per Day: 5 e-Cigarette/Vaping Use: Never Used Second Hand Smoke Exposure: No Substance Use Type: Crack/Cocaine Patient : No 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al status: employed 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[employer] Cognitive needs: No Hearing needs: No Vision needs: No Female Reproductive History Menstrual Age of Menarche: 12 Duration of menses: 3-5 days Date of last menstrual period: 09/25/24 Total pregnancies: 5 Full term: 5 Number of Living Children: 4 Date of last pap smear: 06/12/21 (negative pap smear, negative hpv) History of abnormal pap smear: No Date of Mammogram: 01/05/23 (bi rad 2) Physical Exam Vital Signs: Last Vital Signs BP 126/74 10/17/24 09:28 BMI result Body Mass Index 43.3 Other: External vulva within normal limits slightly drive vagina is a little bit dry pink with scant white curdy discharge consistent with mild yeast. Patient assisted exam by placing fists under buttocks to elevate pelvis slightly. External Female Exam: normal external appearance and normal appearance of the urethra Speculum Exam - Vagina: normal appearance of the vagina and normal vaginal discharge Speculum Exam - Cervix: normal appearance of the cervix and Cervical os closed Results Reviewed Results Reviewed: excerpt from post hysteroscopy visit w Dr Farley of 09/22. H&H= 13/37.7 Hysteroscopy D&C done in 08/22, showed normal intra uterine cavity, pathology showed the following: Benign endometrium with extensive glandular and stromal breakdown, fragment consistent with benign endometrial polyp, and benign endocervical glandular and squamous epithelium; no atypia or carcinoma. TSH, hCG, GC and chlamydia were negative. FSH/LH 20.8/15.7 Co testing was done in 06/21 was negative. Mammogram in 01/20 was negative Pelvic ultrasound showed the following: UTERUS: The uterus is anteverted. Size: 11.4 x 4.6 x 4.9 cm. Uterine mass: Intramural uterine mass likely fibroid measuring up to 3.3 cm. Cervix: There are nabothian cysts otherwise Grossly unremarkable. Endometrium: No ultrasound evidence of endometrial lesion. endometrial thickness measures 0.4 cm ADNEXA: Normal Right ovary: Normal in size. Left ovary: Not seen Doppler exam: Normal Doppler flow identified in right ovary FREE FLUID: Trace amount of free fluid. OTHER FINDINGS: None Assessment & Plan Assessment & Plan (1) Vaginal itching: Comment: Patient seems convinced she has something. the previous testing in the emergency room was negative. We will await testing to see if there is any yeast or BV to treat discharge appears within normal limits today, 02/09/2024. Again normal exam 05/04/2024 await testing results.; 10/17/24-mild yeast evident, will rx w pt choice, diflucan, w refills, and urge getting fasting labs done per [facility]. 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 patient deciding next steps.... Code(s): N93.9 - Abnormal uterine and vaginal bleeding, unspecified Category: Medical Plan Discussed that it appears like it might be mild yeast discussed the circumstances that can promote yeast including elevated blood sugars. Urged that she get the fasting lab work done soon to evaluate that.. As far as the abnormal bleeding she says she has not had any and she is taking a wait and see attitude about doing anything after her full evaluation. Discussed that if she comes to a decision or if she has anymore problems with abnormal bleeding she should see the steel die press set up operator. I offered her Monistat versus Diflucan and she very much wishes to get Diflucan and because she often has some vaginal itching I am prescribing a couple of refills that she may use when she is very sure she has an issue that does not just go away with a cool shower. All previous testing for STIs was negative in recent months Testing done today for gonorrhea chlamydia trichomoniasis Diana and bacterial vaginosis. I am treating for Diana. Patient requested prove that she had had her physical exam with her primary care provider for work requirement but I recommended that she return to that office for letters that might meet her needs and I could not provide that. I do recommend she get the blood work done 1st as that is important. I recommend she get her primary care fasting labs done RTC PRN Should see steel die press set up operator if has any abnormal bleeding problem ? Medications: New fluconazole may repeat second dose 72 hrs after first dose if symptoms persist 150 mg PO Q3D 2 doses 2 tabs 2RF Coding Level of Care Code Est Pt Level 3 (30606) Diagnoses Vaginal itching N89.8 Abnormal uterine bleeding N93.9
[2024-10-17 09:28] VITALS: BP 126/74; BMI 43.3
--- OUTSIDE RECORDS SUMMARY | 2024-10-17 10:10 | XMS_ITS | Clinical Summary ---
Author Organization [facility] ity Address [address] [place] [address] Care Team Providers Care Brain Surgeon Name Role Phone Louise Lane MD Primary Care Provider Surgical History Surgery Date Site/Laterality Comments SECTION PROCEDURE: [place] DELIVERY ONLY; COMMENT: 5 KNEE SURGERY PROCEDURE: [...] age to complete this topic Care Teams Brain Surgeon Relationship Specialty Start Date End Date Louise Lane MD [address] [place] [address] PCP - General Internal Medicine 04/15/18
== END 2024-10-17 10:25 | disposition home or self-care (01) ==
LOC: HO.HWSM 09:23
PROVIDERS: PCP Nurse Practitioner Family; Visit Provider Advanced Practice Midwife
DX: N89.8 Other specified noninflammatory disorders of vagina (principal); N93.9 Abnormal uterine and vaginal bleeding, unspecified
CPT/HCPCS: 99213

== ENCOUNTER 2024-10-17 09:23 | Outpatient (REF) | payer OTHER, SELFPAY ==
--- OUTSIDE RECORDS SUMMARY | 2024-10-17 13:48 | XMS_ITS | Clinical Summary ---
Author Organization [facility] ity Address [address] [place] [address] Care Team Providers Care Lehr Operator Name Role Phone Louise Lane MD Primary Care Provider Surgical History Surgery Date Site/Laterality Comments SECTION PROCEDURE: [place] DELIVERY ONLY; COMMENT: 5 KNEE SURGERY PROCEDURE: [...] age to complete this topic Care Teams Lehr Operator Relationship Specialty Start Date End Date Louise Lane MD [address] [place] [address] PCP - General Internal Medicine 04/15/18
[2024-10-18 06:02] LABS: CT PCR NOT DETECTED (Not Detect.); NG PCR NOT DETECTED (Not Detect.)
[2024-10-18 08:09] LABS: Bacterial Vaginosis PCR POSITIVE (Negative); Candida Group PCR NOT DETECTED (Not Detect); Candida glab krusei PCR NOT DETECTED (Not Detect); Trichomonas vaginalis PCR NOT DETECTED (Not Detect)
== END 2024-10-17 09:24 | disposition home or self-care (01) ==
LOC: HO.LNP 09:23
PROVIDERS: PCP Nurse Practitioner Family; Visit Provider Advanced Practice Midwife
DX: N89.8 Other specified noninflammatory disorders of vagina (principal); N93.9 Abnormal uterine and vaginal bleeding, unspecified; Z11.3 Encounter for screening for infections with a predominantly sexual mode of transmission
CPT/HCPCS: 81515; 87491; 87591; 99212

== ENCOUNTER 2024-10-18 13:29 | Outpatient (REF) | payer OTHER, SELFPAY ==
--- OUTSIDE RECORDS SUMMARY | 2024-10-18 14:03 | XMS_ITS | Clinical Summary ---
Author Organization [facility] ity Address [address] [place] [address] Care Team Providers Care Trolley Wire Installer Name Role Phone Louise Lane MD Primary Care Provider [phone] Surgical History Surgery Date Site/Laterality Comments SECTION PROCEDURE: [place] DELIVERY ONLY; COMMENT: 5 KNEE SURGERY PROCEDURE: [...] age to complete this topic Care Teams Trolley Wire Installer Relationship Specialty Start Date End Date Louise Lane MD [address] [place] [address] PCP - General Internal Medicine 04/15/18
[2024-10-18 16:28] LABS: Appearance Urine Clear; Color Urine Yellow; Glucose Urine UA Negative (Negative); Leukocyte Esterase Urine Negative (Negative); Nitrite Urine Negative (Negative); PH 6.5 (5.0-9.0); Specific Gravity - Urine 1.015 (1.005-1.025); Urine Blood Negative (Negative); Urine Ketones Trace mg/dL (Negative); Urine Protein Negative (Neg-Trace)
[2024-10-18 16:32] LABS: MANUAL DIFF FLAG NO
[2024-10-18 16:35] LABS: Basophils Percent Auto 0.5 % (0-2); Eosinophils Absolute Auto 0.1 X10*3/uL (0.0-0.4); Eosinophils Percent Auto 2.2 % (0-4); Hematocrit 37.6 % (37.0-47.0); Hemoglobin 12.5 g/dl (12.0-16.0); Imm Gran Abs Auto 0.01 X10*3/uL (0.00-0.03); Imm Gran Pct Auto 0.2 % (0.0-0.4); Lymphocytes Absolute Auto 1.9 X10*3/uL (1.2-4.9); Lymphocytes Percent Auto 29.8 % (20-40); Mean Corpuscular HGB Conc 33.2 g/dl (31.0-35.0); Mean Corpuscular Hemoglobin 32.1 pg (27.0-33.0); Mean Corpuscular Volume 96.4 fL (80.0-98.0); Mean Platelet Volume 9.9 fL (9.4-12.3); Monocytes Absolute Auto 0.4 X10*3/uL (0.1-1.2); Monocytes Percent Auto 5.6 % (2-11); Neutrophils Absolute Auto 3.9 x10*3/uL (2.0-8.3); Neutrophils Percent Auto 61.7 % (45-73); Platelet Count 254 X10*3/uL (160-400); Red Cell Distribution Width 12.9 % (11.0-16.0); White Blood Count 6.2 X10*3/uL (4.8-10.8)
[2024-10-18 17:10] LABS: Alanine Aminotransferase 13 U/L (0-31); Albumin Level 4.1 g/dL (3.5-5.0); Alkaline Phosphatase 82 U/L (39-117); Anion Gap 12 (12-20); Aspartate Amino Transferase 20 U/L (5-31); Bilirubin Total 0.8 mg/dL (0.0-1.0); Blood Urea Nitrogen 10 mg/dL (9-16); Calcium 9.3 mg/dL (8.4-10.2); Carbon Dioxide 25 mmol/L (22-29); Chloride 106 mmol/L (96-108); Cholesterol 200 mg/dL (<200); Estimated Glomerular Filt Rate > 60; Glucose Fasting 93 mg/dL (60-99); HDL Cholesterol 59 mg/dL (>40); LDL Cholesterol Calculated 121 mg/dL (<100); Potassium 3.5 mmol/L (3.3-5.1); Sodium 139 mmol/L (135-145); Total Protein 6.8 g/dL (6.5-8.0); Triglycerides 102 mg/dL (<150)
[2024-10-18 17:15] LABS: TSH reflex Free T4 1.92 uIU/mL (0.32-4.0)
== END 2024-10-18 13:30 | disposition home or self-care (01) ==
LOC: HO.HMGCLDS 13:29
PROVIDERS: PCP Nurse Practitioner Family; Visit Provider Nurse Practitioner Family
DX: Z00.00 Encounter for general adult medical examination without abnormal findings (principal); Z13.220 Encounter for screening for lipoid disorders; Z13.29 Encounter for screening for other suspected endocrine disorder; Z13.9 Encounter for screening, unspecified
CPT/HCPCS: 36415; 80053; 80061; 81003; 84443; 85025

== ENCOUNTER 2025-02-05 20:22 | Emergency (ER) | payer OTHER, SELFPAY ==
--- NOTE | ~2025-02-05 | XR_ITS ---
CLINICAL HISTORY: pain 3 views lumbar spine Comparison: None provided Findings: Normal vertebral body alignment. No acute fractures or dislocation. Moderate endplate, discogenic and facet arthropathy at L5-S1. IMPRESSION: 1. No fracture or subluxation. 2. Moderate L5-S1 lumbar spine arthropathy. MRI may be considered for further evaluation. This document has been electronically signed by: Adolfo Wallace MD on 02/05/2025 21:42:11
--- NOTE | ~2025-02-05 | XR_ITS ---
CLINICAL HISTORY: pain 3 views thoracic spine Comparison: None provided Findings: Anatomic alignment in AP plane. Thoracic spine kyphosis is maintained. No acute compression fractures. [id number]-[id number] multilevel endplate, discogenic and facet arthropathy mostly centered in the mid to lower thoracic spine. Visualized soft tissues and lung thakkar are unremarkable. Impression: 1. Vgcq-ju-nsqzxeca multilevel thoracic spine arthropathy. Consider MRI for further evaluation if clinically indicated. This document has been electronically signed by: Adolfo Wallace MD on 02/05/2025 21:44:26
[2025-02-05 20:39] VITALS: BP 140/80; PULSE 92; RESP 16; TEMP 36.1; O2SAT 100; BMI 42.9
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
[2025-02-05 22:04] LABS: Hematocrit 36.5 % (37.0-47.0); Hemoglobin 12.7 g/dl (12.0-16.0); Imm Gran Abs Auto 0.02 X10*3/uL (0.00-0.03); Imm Gran Pct Auto 0.3 % (0.0-0.4); Lymphocytes Absolute Auto 2.8 X10*3/uL (1.2-4.9); MANUAL DIFF FLAG SCAN; Mean Corpuscular HGB Conc 34.8 g/dl (31.0-35.0); Mean Corpuscular Hemoglobin 32.1 pg (27.0-33.0); Mean Corpuscular Volume 92.2 fL (80.0-98.0); NRBC Abs Auto 0.000 X10*3/uL (0.0-0.012); NRBC Pct Auto 0.0 /100WBC (0.0-0.2); Platelet Count 293 X10*3/uL (160-400); Red Blood Count 3.96 X10*6/uL (4.20-5.50); SCAN SMEAR FLAG 1; White Blood Count 7.5 X10*3/uL (4.8-10.8)
[2025-02-05 22:16] LABS: Alanine Aminotransferase 15 U/L (0-31); Albumin Level 4.0 g/dL (3.5-5.0); Alkaline Phosphatase 87 U/L (39-117); Anion Gap 13 (12-20); Aspartate Amino Transferase 14 U/L (5-31); Blood Urea Nitrogen 16 mg/dL (9-16); Calcium 8.7 mg/dL (8.4-10.2); Carbon Dioxide 24 mmol/L (22-29); Chloride 110 mmol/L (96-108); Creatinine Clr Calc Pharmacy 116.3; Estimated Glomerular Filt Rate > 60; Potassium 3.7 mmol/L (3.3-5.1); Sodium 143 mmol/L (135-145); Total Protein 6.3 g/dL (6.5-8.0)
[2025-02-05 23:23] VITALS: BP 140/80; PULSE 92; RESP 16; TEMP 36.1; O2SAT 100
== END 2025-02-05 23:23 | disposition home or self-care (01) ==
PROVIDERS: Emergency Provider Emergency Medicine; PCP Nurse Practitioner Family
DX: S13.4XXA Sprain of ligaments of cervical spine, initial encounter (principal); S16.1XXA Strain of muscle, fascia and tendon at neck level, initial encounter; V43.52XA Car driver injured in collision with other type car in traffic accident, initial encounter; Y93.9 Activity, unspecified; Y92.9 Unspecified place or not applicable; Y99.9 Unspecified external cause status; M54.12 Radiculopathy, cervical region; M54.2 Cervicalgia; M54.9 Dorsalgia, unspecified; R20.2 Paresthesia of skin; Z79.899 Other long term (current) drug therapy
CPT/HCPCS: 36415; 72070; 72100; 80053; 85025; 99282; 99283

== ENCOUNTER → 2025-02-05 20:39 | Outpatient (BNV) | payer OTHER, SELFPAY | PROVIDERS: PCP Nurse Practitioner Family; Visit Provider Radiology Diagnostic Radiology | DX: M47.816 Spondylosis without myelopathy or radiculopathy, lumbar region (principal); M51.34 Other intervertebral disc degeneration, thoracic region | CPT/HCPCS: 72070; 72100 ==

== ENCOUNTER 2025-03-02 08:30 | Outpatient (REF) | payer OTHER, SELFPAY ==
--- OUTSIDE RECORDS SUMMARY | 2025-03-05 09:07 | XMS_ITS | Clinical Summary ---
Author Organization [facility] ity Address [address] [place] [address] Care Team Providers Care Web Operations Manager Name Role Phone Louise Lane MD Primary Care Provider Surgical History Surgery Date Site/Laterality Comments SECTION PROCEDURE: NC DELIVERY ONLY; COMMENT: 5 KNEE SURGERY PROCEDURE: [...] Cervical Cancer Screening: P ap Smear 1997 Depression Screening 05/31/2024 COVID-19 Vaccine ( - 2023-2 5 season) 2025 Influenza Vaccine (#1) 2025 RSV Immunization Adult Patie nts (1 - 1-dose 75+ series) 11/25/2051 HIB Vaccines Aged Out No longer eligi [...] 5 Years) and At-Risk Patients (6 to 49 Years) Aged Out No longer eligible b ased on patient's age to complete this topic RSV Immunization Patients Un pooja 20 months Aged Out No longer eligible b ased on patient's age to complete this topic Varicella Vaccines Aged Out No longer eligible based on patient's age to complete this topic Care Teams Web Operations Manager Relationship Specialty Start Date End Date Louise Lane MD [address] [place] [address] PCP - General Internal Medicine 04/15/18
== END 2025-03-02 08:31 | disposition home or self-care (01) ==
LOC: HO.HOSX 08:30
PROVIDERS: Visit Provider Physician Assistant
DX: Z13.89 Encounter for screening for other disorder (principal)